=== PATIENT | male | born 1955 | race Caucasian/White ===

== ENCOUNTER → 2017-09-04 16:04 | Outpatient (CLI) | payer OTHER, SELFPAY ==
[2017-09-04 17:49] LABS: Blood Urea Nitrogen 15 mg/dL (7-18); Carbon Dioxide 32 mmol/L (21.0-32.0); Chloride 94 mmol/L (98-107); Creatinine,Serum 0.94 mg/dL (0.70-1.30); Estimated Glomerular Filt Rate 81 ml/min (>60); GFR (African American) 98 ML/MIN (>60); Glucose 103 mg/dL (74-106); Sodium 135 mmol/L (136-145)
== END ==
PROVIDERS: PCP Internal Medicine; Visit Provider Internal Medicine
DX: I10 Essential (primary) hypertension (principal)
CPT/HCPCS: 36415; 80048

== ENCOUNTER → 2017-10-23 10:24 | Outpatient (CLI) | payer OTHER, SELFPAY ==
[2017-10-23 10:52] LABS: Anion Gap 6.2 mEq/L (5-15); Blood Urea Nitrogen 16 mg/dL (7-18); Carbon Dioxide 31 mmol/L (21.0-32.0); Chloride 93 mmol/L (98-107); Creatinine,Serum 0.84 mg/dL (0.70-1.30); Estimated Glomerular Filt Rate 93 ml/min (>60); GFR (African American) 112 ML/MIN (>60); Glucose 146 mg/dL (74-106); Potassium 3.2 mmoL/L (3.5-5.1); Sodium 127 mmol/L (136-145)
== END ==
PROVIDERS: Visit Provider Internal Medicine
DX: R94.2 Abnormal results of pulmonary function studies (principal)
CPT/HCPCS: 36415; 80048

== ENCOUNTER → 2018-01-09 15:14 | Outpatient (CLI) | payer OTHER, SELFPAY ==
--- NOTE | 2018-01-09 15:25 | MR_ITS ---
MR lumbar spine wo con, MR 3-d myelogram/MRCP HISTORY: Low Back spasms when standing. Burning down LT Leg when sitting. Pain and numbness in LT leg and will fall. Symptoms [id number]. ITS.REASON: LOW BACK PAIN ORDERING PHYSICIAN: Jem Narvaez PATIENT AGE: 62 years Comparison: MRI 01-20-17 TECHNIQUE: Standard multiplanar multiecho sequences are performed without contrast. 3-D MIP and myelographic images are also rendered and reviewed FINDINGS: There is normal alignment. The spinal cord ends at the T12-L1 level. There is mild disc desiccation with slight decrease in height of the disc space at T12-L1 and L1-L2. L2-L3 has an unremarkable appearance. L3-L4: Mild degenerative disc disease with mild concentric bulging disc there is slightly eccentric towards the left. The previously noted focal area of increased T2 signal centrally is not apparent on today's exam than the previously noted disc protrusion is no longer apparent. L4-5: Mild degenerative disc disease with bulging disc along with mild facet and ligamentum flavum hypertrophy with mild bilateral foraminal narrowing. L5-S1: There has been interval development of a area of isointense T1 and T2 signal in the left anterior epidural space measuring 9 mm cephalad to caudad, 6 mm AP, and 13 mm transverse. This is consistent with an extruded herniated disc from the L5-S1 disc space extruded superiorly versus a disc fragment. This is causing compression upon the left S1 nerve root and also causing left lateral recess narrowing and may be impinging upon the exiting L5 nerve root as well. There is a 8 mm isointense involving the right kidney laterally nonspecific possibly related to a proteinaceous or hemorrhagic cyst. IMPRESSION: 1. Superior extruded herniated disc versus disc fragment at L5-S1. The extruded disc is left paracentral and compressive on the left S1 nerve root and possibly the exiting L5 nerve root. 2. Mild degenerative disc disease with bulging disc at L3-L4 and L4
== END ==
PROVIDERS: Family Provider Internal Medicine; PCP Internal Medicine; Visit Provider Internal Medicine
DX: M54.5 Low back pain (principal)
CPT/HCPCS: 72148; 76376

== ENCOUNTER 2018-02-16 09:30 | Outpatient (RCR) | payer OTHER, SELFPAY | END 2018-02-16 09:31 | disposition home or self-care (01) | LOC: PT 09:30 | PROVIDERS: Family Provider Internal Medicine; PCP Internal Medicine; Visit Provider Neurological Surgery | DX: M51.36 Other intervertebral disc degeneration, lumbar region (principal) | CPT/HCPCS: 97010; 97014; 97035; 97110; 97163; G0283 ==

== ENCOUNTER → 2018-02-26 08:05 | Outpatient (CLI) | payer OTHER, SELFPAY ==
[2018-02-26 09:33] LABS: Alanine Aminotransferase 38 U/L (12-78); Albumin Level 3.8 gm/dL (3.4-5.0); Albumin/Globulin Ratio 1.2 (1.1-1.8); Alkaline Phosphatase 79 U/L (46-116); Anion Gap 13.3 mEq/L (5-15); Aspartate Amino Transferase 27 U/L (15-37); Bilirubin,Total 0.5 mg/dL (0.2-1.0); Blood Urea Nitrogen 23 mg/dL (7-18); Calcium 9.3 mg/dL (8.5-10.1); Carbon Dioxide 29 mmol/L (21.0-32.0); Chloride 103 mmol/L (98-107); Chol/HDL Ratio 8.1 (1-3.5); Cholesterol 202 mg/dL (140-200); Creatinine,Serum 1.17 mg/dL (0.70-1.30); Estimated Glomerular Filt Rate 63 ml/min (>60); GFR (African American) 76 ML/MIN (>60); Globulin 3.3 gm/dl (1.3-3.2); Glucose 119 mg/dL (74-106); HDL Cholesterol 25 mg/dL (27-67); Potassium 3.3 mmoL/L (3.5-5.1); Prostate Specific Ag, Diagnost 0.53 ng/mL (0.0-4.0); Sodium 142 mmol/L (136-145); Total Protein,Serum 7.1 gm/dL (6.4-8.2)
[2018-02-26 09:39] LABS: Triglycerides 518 mg/dL (30-200)
== END ==
PROVIDERS: Visit Provider Internal Medicine
DX: I10 Essential (primary) hypertension (principal); E78.5 Hyperlipidemia, unspecified; R39.12 Poor urinary stream
CPT/HCPCS: 36415; 80053; 80061; 84153

== ENCOUNTER → 2020-01-30 07:06 | Outpatient (CLI) | payer MEDICAID, SELFPAY ==
[2020-01-30 10:56] LABS: Alanine Aminotransferase 26 U/L (12-78); Albumin Level 4.4 g/dl (3.5-5.0); Albumin/Globulin Ratio 1.3 (1.1-1.8); Alkaline Phosphatase 87 U/L (38-126); Anion Gap 15.9 mEq/L (5-15); Aspartate Amino Transferase 34 U/L (17-59); Bilirubin,Total 0.7 mg/dl (0.2-1.3); Blood Urea Nitrogen 16 mg/dl (9-20); Calcium 9.7 mg/dl (8.4-10.2); Carbon Dioxide 30 mmol/L (22.0-30.0); Chloride 96 mmol/L (98-107); Chol/HDL Ratio 5.1 (1-3.5); Cholesterol 184 mg/dl (140-200); Estimated Glomerular Filt Rate 75 ml/min (>60); GFR (African American) 91 ML/MIN (>60); Globulin 3.4 g/dL (1.3-3.2); Glucose 106 mg/dl (74-100); HDL Cholesterol 36 mg/dl (40-60); Potassium 4.9 mmoL/L (3.5-5.1); Sodium 137 mmol/L (136-145); Total Protein,Serum 7.8 g/dl (6.3-8.2); Triglycerides 270 mg/dl (30-150); VLDL Cholesterol 54 mg/dL (0-40)
[2020-01-30 11:07] LABS: Direct LDL Cholesterol 106.92 mg/dL (100-129)
[2020-01-30 11:27] LABS: Prostate Specific Ag, Diagnost 0.303 ng/ml (0.0-4.0); Thyroid Stimulating Hormone 2.87 uIU/mL (0.465-4.68)
== END ==
PROVIDERS: Visit Provider Internal Medicine
DX: E78.5 Hyperlipidemia, unspecified (principal); N40.1 Benign prostatic hyperplasia with lower urinary tract symptoms; I10 Essential (primary) hypertension; I83.029 Varicose veins of left lower extremity with ulcer of unspecified site; L03.116 Cellulitis of left lower limb; I87.2 Venous insufficiency (chronic) (peripheral)
CPT/HCPCS: 36415; 80053; 80061; 84153; 84443

== ENCOUNTER → 2020-04-06 09:22 | Outpatient (CLI) | payer MEDICAID, SELFPAY ==
[2020-04-06 11:59] LABS: Coronavirus 19 IgG Antibody Negative (Negative); Coronavirus 19 IgM Antibody Negative (Negative)
== END ==
PROVIDERS: Visit Provider Surgery
DX: Z01.818 Encounter for other preprocedural examination (principal); Z12.11 Encounter for screening for malignant neoplasm of colon
CPT/HCPCS: 36415; 86328

== ENCOUNTER 2020-04-07 08:28 | Day surgery (SDC) | payer MEDICAID, SELFPAY ==
[2020-04-07 08:42] VITALS: BP 151/95; PULSE 97; RESP 16; TEMP 36.7; O2SAT 97; BMI 39.8
[2020-04-07 09:01] VITALS: O2SAT 97
--- NOTE | 2020-04-07 09:37 | P.PN_ITS ---
[facility] Anesthesia Checklist - Structural Data Admitted From: Home Planned Operative Procedure/s: colonoscopy Consent for Planned Operative Procedure(s) Verified: Yes - Airway Assessment C-Spine Mobility Assessed: Yes TMJ Mobility Assessed: Yes Dentition: Good Dentition - Neurological Assessment Level of Consciousness: Awake, Alert, Appropriate - Anesthesia Plan Anesthesia Risk discussed: Yes Anesthesia Plan: Verified ASA Class: III Anesthesia Type: MAC [facility] History I have reviewed the patient's past medical history: Yes Medical History: Reports:: Hypertension, MRSA Denies:: Cancer, Diabetes Mellitus Type 1, Diabetes Mellitus Type 2, Internal Pacemaker, Seizures *Have you ever received a pneumonia vaccine?: No *Have you received a flu vaccine this season?: Yes Anesthesia experience/problems:: none Other Surgeries: Yes: Colonoscopy. No: Pacemaker Amputation: No Fractures: No - *Social History Last grade of school completed: Advanced degree Smoking Status: Former smoker Alcohol Intake: current Alcohol Intake Frequency:: a few times a month Substance Use Type: denies use *Occupational Status:: retired Housing: house Household Members: spouse, family, children *Travel in the last 8 weeks: None Family Hx:: No significant family history
--- NOTE | 2020-04-07 10:02 | P.PCN_ITS ---
- Procedure: Date: 04/07/20 Procedure Performed:: Total colonoscopy to terminal ileum with polypectomy x2 by snare and biopsy forceps Indications:: Patient is a 64-year-old male who presents for colonoscopy. He is under the care of Jem Narvaez MD. he is a retired nurse. He has a prior history of diverticulosis. I had performed colonoscopy on him in June 2010 for Hemoccult positive stool and he did have some polyps removed. Five-year follow- up colonoscopy was recommended. He does state that he did a Cologuard in 2019 at the [facility] and colonoscopy was recommended. He is asymptomatic. Performing Provider:: Reed Saldaña MD Referring Provider:: Jem Narvaez MD Sedation:: Propofol Procedure:: Patient was taken to endoscopy procedure room. He was positioned in a lateral decubitus position. Adequate intravenous sedation was achieved with anesthesia titration of propofol. Variable stiffness Olympus colonoscope was inserted via the anus. It was advanced to the cecum with some minor difficulty due to floppiness of the sigmoid colon. Ileocecal valve and appendiceal orifice were clearly identified. Colonoscope was advanced into the terminal ileum which a ppeared grossly normal. Colonoscope was withdrawn through the colon with careful surveillance. He had pandiverticulosis with multiple large mouth diverticuli in the sigmoid colon. There were a couple of descending colon polyps, diminutive, removed with cold cutting snare. Within the rectum there was a hyperplastic appearing polyp removed with biopsy forceps. Colonoscope was withdrawn. Findings:: Small diminutive descending colon polyp x2 removed with cold cutting snare Hyperplastic appearing rectal polyp removed with biopsy forceps Pandiverticulosis with more concentrated [place] diverticuli in the sigmoid colon Recommendations:: Likely repeat colonoscopy 5 years Complications:: None immediately apparent Estimated blood obtained (mL): 3
[2020-04-07 10:05] VITALS: BP 117/78; PULSE 79; RESP 20; TEMP 36.4; O2SAT 92
[2020-04-07 10:15] VITALS: BP 112/80; PULSE 76; RESP 20; TEMP 36.4; O2SAT 92
[2020-04-07 10:25] VITALS: BP 122/77; PULSE 72; RESP 20; TEMP 36.4; O2SAT 98
[2020-04-07 10:40] VITALS: BP 157/87; PULSE 80; RESP 20; TEMP 36.4; O2SAT 98
== END 2020-04-07 10:40 | disposition home or self-care (01) ==
LOC: OUTP 08:30
PROVIDERS: PCP Internal Medicine; Visit Provider Surgery
PROC: 0DJD8ZZ Inspection of Lower Intestinal Tract, Via Natural or Artificial Opening Endoscopic (ICD-10-PCS; CPT 45385; principal; 2020-04-07 09:30)
DX: Z12.11 Encounter for screening for malignant neoplasm of colon (principal); Z87.19 Personal history of other diseases of the digestive system; K63.5 Polyp of colon; K57.30 Diverticulosis of large intestine without perforation or abscess without bleeding; I10 Essential (primary) hypertension; Z86.14 Personal history of Methicillin resistant Staphylococcus aureus infection; Z87.891 Personal history of nicotine dependence; Z88.8 Allergy status to other drugs, medicaments and biological substances; Z79.899 Other long term (current) drug therapy
CPT/HCPCS: 45385; 45380

== ENCOUNTER → 2020-05-19 12:40 | Outpatient (CLI) | payer MEDICAID, SELFPAY ==
--- NOTE | 2020-05-19 12:46 | CT_ITS ---
PROCEDURE: CT LUNG SCREENING CLINICAL INDICATION: H/O NICOTINE DEPENDENCE Former smoker Quit smoking 4 months ago 42 pack year smoking history COMPARISON: No exams were available for comparison TECHNIQUE: The exam was performed on a GE Light Speed [address] scanner using 2.90 mGy CTDI. A low dose helical CT CHEST was performed on a multi-detector scanner. All CT scans at the facility use one or more dose reduction, viz: automated exposure control, ma/kV adjustment per patient size (including targeted exams where dose is matched to indication, i.e. head), or iterative reconstruction technique. The LDCT was performed in a facility that meets the criteria for the screening program. Data regarding this exam was submitted to ACR which is an approved registry. The order for this exam indicates that it came as a result of a lung cancer screening counseling shard decision-making visit that included all the elements required of such a visit including smoking cessation. The radiologist interpreting this exam meets the [facility] criteria for the LDCT lung cancer screening program. The exam is reported using the Lung-RADS classification scale and reported to the ACR registry. NOTE: This study was performed for the specific purposes of lung cancer screening and is not an alternative to diagnostic chest CT. RADIATION DOSE: CTDI vol(CT dose Index-volume) = 2.90mG DLP (Dose Length Product) = 110.98 mGcm FINDINGS: COPD changes. Scarring present in the right upper lobe with punctate hyperdensities in the area of scarring which could be due to calcifications or even small clips. Atelectatic or fibrotic changes are present in the left lower lobe posteriorly and in the lingula. No suspicious pulmonary nodules are evident. OTHER FINDINGS: Coronary artery calcifications. IMPRESSION: Lung-RADS Category 1 Negative Follow-up: Continue annual screening with LDCT in 12 months Dictated by: Jitendra Duran MD 05/29/2020 11:28 Jitendra Duran MD in [place] 05/29/2020 11:28
== END ==
PROVIDERS: PCP Internal Medicine; Visit Provider Internal Medicine
DX: Z87.891 Personal history of nicotine dependence (principal); Z12.2 Encounter for screening for malignant neoplasm of respiratory organs

== ENCOUNTER → 2021-12-07 10:34 | Outpatient (CLI) | payer MEDICARE, SELFPAY ==
[2021-12-07 11:22] LABS: Basophils # 0.1 K/mm3 (0-0.2); Basophils % 1.3 % (0.1-2.0); Eosinophils # 0.2 K/mm3 (0.0-0.4); Eosinophils % 2.3 % (0.1-12.0); Hematocrit 46.2 % (42.0-52.0); Lymphocytes # 1.7 K/mm3 (0.7-4.5); Lymphocytes % 22.1 % (10-50); Mean Corpuscular HGB Conc 32.5 g/dL (31.8-35.4); Mean Corpuscular Hemoglobin 32.6 pg (27.0-31.2); Mean Corpuscular Volume 100.5 fl (80-94); Mean Platelet Volume 7.5 fl (7.4-10.4); Monocytes # 0.5 K/mm3 (0.1-1.0); Monocytes % 6.1 % (1.7-9.3); Neutrophils # 5.1 K/mm3 (1.8-7.8); Neutrophils % 68.2 % (37.0-80.0); Platelet Count 238 K/mm3 (142-424); Red Cell Distribution Width 14.3 % (11.5-17.5); White Blood Count 7.5 K/mm3 (4.8-10.8)
[2021-12-07 12:06] LABS: Alanine Aminotransferase 26 U/L (12-78); Albumin Level 3.8 g/dl (3.5-5.0); Albumin/Globulin Ratio 1.4 (1.1-1.8); Alkaline Phosphatase 71 U/L (38-126); Anion Gap 7.6 mEq/L (5-15); Aspartate Amino Transferase 26 U/L (17-59); Bilirubin,Total 0.7 mg/dl (0.2-1.3); Blood Urea Nitrogen 12 mg/dl (9-20); Calcium 8.3 mg/dl (8.4-10.2); Carbon Dioxide 28 mmol/L (22.0-30.0); Chloride 105 mmol/L (98-107); Chol/HDL Ratio 5.2 (1-3.5); Cholesterol 176 mg/dl (140-200); Estimated Glomerular Filt Rate 135 ml/min (>60); GFR (African American) 163 ML/MIN (>60); Globulin 2.7 g/dL (1.3-3.2); Glucose 113 mg/dl (74-100); HDL Cholesterol 34 mg/dl (40-60); Potassium 4.6 mmoL/L (3.5-5.1); Sodium 136 mmol/L (136-145); Total Protein,Serum 6.5 g/dl (6.3-8.2); Triglycerides 133 mg/dl (30-150); VLDL Cholesterol 27 mg/dL (0-40)
[2021-12-07 12:19] LABS: Direct LDL Cholesterol 115.07 mg/dL (100-129)
[2021-12-07 12:39] LABS: Prostate Specific Ag Screen 0.5 ng/ml (0.0-4.0)
== END ==
PROVIDERS: Visit Provider Internal Medicine
DX: I10 Essential (primary) hypertension (principal); E78.5 Hyperlipidemia, unspecified; J44.1 Chronic obstructive pulmonary disease with (acute) exacerbation; Z12.5 Encounter for screening for malignant neoplasm of prostate
CPT/HCPCS: 36415; 80053; 80061; 85025; G0103

== ENCOUNTER → 2021-12-31 14:51 | Outpatient (CLI) | payer MEDICARE, SELFPAY ==
--- NOTE | 2021-12-31 | ECG_ITS ---
APPROVED REPORT Exam: Resting ECG HR:127 bpm ECG Measurements Heart Rate 127 AXES QRSd 132 QRS 270 QT 336 T 60 QTc 411 Conclusion SVT WITH RAPID VENTRICULAR RESPONSE RIGHT AXIS DEVIATION [QRS AXIS > 100] RIGHT BUNDLE BRANCH BLOCK [120+ ms QRS DURATION, UPRIGHT V1, 40+ ms S IN I/aVL/V4/V5/V6] ABNORMAL ECG Electronically signed by : Jem Narvaez MD 01/03/2022 08:58:29
--- NOTE | 2021-12-31 15:17 | CT_ITS ---
FINAL REPORT CLINICAL HISTORY: smoker 1/2 ppd x 40 years copd COMPARISON: May 19, 2020 FINDINGS: Low-Dose Chest CT CTDI vol (mGy): 2.90 DLP (mGy-cm): 107.07 Axial images were obtained from the lung apex to the mid abdomen by computed tomography. Low-dose protocol was utilized. CHEST: There is no axillary adenopathy. There is no hilar or mediastinal adenopathy. The heart is proper size. There is severe left coronary artery calcification. There is no pericardial or pleural effusion. Limited images of the upper abdomen are unremarkable. Lung window images demonstrate no suspicious infiltrate or nodule. There is mild pulmonary scarring. There are several small calcified granulomas. IMPRESSION: No suspicious infiltrate or nodule is identified. Modifier S: Severe left coronary artery calcification. Lung RADS category 1S. Recommend 12 month follow-up low-dose chest CT. Reviewed, Interpreted and Dictated by Reed King III, MD Transcribed by Gregoria Patino Authenticated by Reed King III, MD on 12/31/2021 04:33:06 PM [facility]
[2021-12-31 17:52] LABS: Vitamin B12 253 pg/mL (239-931)
== END ==
PROVIDERS: PCP Internal Medicine; Visit Provider Internal Medicine
DX: Z87.891 Personal history of nicotine dependence (principal); Z12.2 Encounter for screening for malignant neoplasm of respiratory organs; R00.9 Unspecified abnormalities of heart beat; D75.89 Other specified diseases of blood and blood-forming organs
CPT/HCPCS: 36415; 71271; 82607; 82746; 93005

== ENCOUNTER → 2023-02-10 13:12 | Outpatient (CLI) | payer MEDICARE, SELFPAY ==
[2023-02-10 14:51] LABS: Basophils % 0.4 % (0.1-2.0); Eosinophils # 0.4 K/mm3 (0.0-0.4); Eosinophils % 4.2 % (0.1-12.0); Hematocrit 48.3 % (42.0-52.0); Hemoglobin 15.4 g/dL (14.1-18.0); Lymphocytes % 19.4 % (10-50); Mean Corpuscular HGB Conc 31.9 g/dL (31.8-35.4); Mean Corpuscular Hemoglobin 30.9 pg (27.0-31.2); Mean Corpuscular Volume 96.8 fl (80-94); Mean Platelet Volume 10.4 fl (7.4-10.4); Monocytes # 0.6 K/mm3 (0.1-1.0); Neutrophils % 69.9 % (37.0-80.0); Platelet Count 298 K/mm3 (142-424); Red Blood Count 4.99 M/mm3 (4.60-6.20); Red Cell Distribution Width 13.5 % (11.5-17.5)
[2023-02-10 15:22] LABS: Alanine Aminotransferase 26 U/L (12-78); Albumin Level 4.3 g/dl (3.5-5.0); Albumin/Globulin Ratio 1.6 (1.1-1.8); Alkaline Phosphatase 108 U/L (38-126); Anion Gap 18.7 mEq/L (5-15); Aspartate Amino Transferase 29 U/L (17-59); Bilirubin,Total 0.7 mg/dl (0.2-1.3); Blood Urea Nitrogen 14 mg/dl (9-20); Calcium 8.9 mg/dl (8.4-10.2); Carbon Dioxide 28 mmol/L (22.0-30.0); Chloride 98 mmol/L (98-107); Chol/HDL Ratio 6.5 (1-3.5); Cholesterol 215 mg/dl (140-200); Estimated Glomerular Filt Rate 96 ml/min (>60); GFR (African American) 117 ML/MIN (>60); Globulin 2.7 g/dL (1.3-3.2); Glucose 148 mg/dl (74-100); HDL Cholesterol 33 mg/dl (40-60); Potassium 4.7 mmoL/L (3.5-5.1); Sodium 140 mmol/L (136-145); Triglycerides 308 mg/dl (30-150); VLDL Cholesterol 62 mg/dL (0-40)
[2023-02-10 15:33] LABS: Direct LDL Cholesterol 121.35 mg/dL (100-129)
[2023-02-10 15:52] LABS: Prostate Specific Ag Screen 0.6 ng/ml (0.0-4.0)
== END ==
PROVIDERS: PCP Internal Medicine; Visit Provider Internal Medicine
DX: I10 Essential (primary) hypertension (principal); E78.5 Hyperlipidemia, unspecified; I87.2 Venous insufficiency (chronic) (peripheral); K11.9 Disease of salivary gland, unspecified; J44.9 Chronic obstructive pulmonary disease, unspecified; R60.9 Edema, unspecified; Z12.5 Encounter for screening for malignant neoplasm of prostate
CPT/HCPCS: 80053; 80061; 85025; G0103

== ENCOUNTER → 2023-03-27 14:15 | Outpatient (CLI) | payer MEDICARE, SELFPAY ==
--- NOTE | 2023-03-27 14:22 | CT_ITS ---
FINAL REPORT TECHNIQUE: Axial images were obtained from the lung apex to the mid abdomen by computed tomography. This study was performed with techniques to keep radiation doses as low as reasonably achievable (ALARA). Individualized dose reduction techniques using automated exposure control or adjustment of mA and/or kV according to the patient's size were employed. CLINICAL HISTORY: H/O TOBACCO USE,LUNG CANCER SCREENING smokes 1/2 pk per day x 40 yrs COMPARISON: 12/31/2021 FINDINGS: CHEST CT LOW DOSE CTDI vol (mGy): 2.90 DLP (mGy-cm): 119.59 There is severe coronary artery calcification. There is no axillary adenopathy. There is no hilar or mediastinal adenopathy. The heart is normal in size. There is no pericardial or pleural effusion. There is mild scarring which is stable. Lung window images demonstrate no suspicious infiltrate or nodule. Limited images of the upper abdomen are unremarkable. IMPRESSION: Severe coronary artery calcification. Lung RADS category 1S. Recommend 12 month follow-up low-dose chest CT. Reviewed, Interpreted and Dictated by Reed King III, MD Transcribed by Nicolasa Pro Authenticated and . [facility]
== END ==
PROVIDERS: PCP Internal Medicine; Visit Provider Internal Medicine
DX: Z87.891 Personal history of nicotine dependence (principal); Z12.2 Encounter for screening for malignant neoplasm of respiratory organs
CPT/HCPCS: 71271

== ENCOUNTER → 2023-08-09 12:44 | Outpatient (CLI) | payer MEDICARE, SELFPAY ==
[2023-08-09 13:33] LABS: Hemoglobin A1C 7.2 % (4.0-6.0)
[2023-08-09 13:54] LABS: Chloride 99 mmol/L (98-107); Potassium 4.4 mmoL/L (3.5-5.1); Sodium 138 mmol/L (136-145)
[2023-08-09 13:57] LABS: Anion Gap 14.4 mEq/L (5-15); Blood Urea Nitrogen 11 mg/dl (9-20); Calcium 8.9 mg/dl (8.4-10.2); Carbon Dioxide 29 mmol/L (22.0-30.0); Estimated Glomerular Filt Rate 96 ml/min (>60); GFR (African American) 117 ML/MIN (>60); Glucose 86 mg/dl (74-100)
== END ==
PROVIDERS: PCP Internal Medicine; Visit Provider Internal Medicine
DX: R73.9 Hyperglycemia, unspecified (principal); E78.5 Hyperlipidemia, unspecified; I10 Essential (primary) hypertension; I87.2 Venous insufficiency (chronic) (peripheral); I48.3 Typical atrial flutter; J44.9 Chronic obstructive pulmonary disease, unspecified; F17.209 Nicotine dependence, unspecified, with unspecified nicotine-induced disorders
CPT/HCPCS: 80048; 83036

== ENCOUNTER 2023-12-31 10:36 | Emergency (ER) | payer MEDICARE, SELFPAY ==
[2023-12-31 11:05] VITALS: BP 127/69; PULSE 61; RESP 19; TEMP 36.7; O2SAT 95; BMI 41.7
--- NOTE | 2023-12-31 11:31 | ED_ITS ---
Discharge Plan Disposition Patient Disposition: Home, Self-Care Condition: Good Prescriptions Prescriptions: New amoxicillin-pot clavulanate 875-125 mg Tablet 1 tab PO Q12H 7 Days Qty: 14 0RF No Action losartan 25 mg tablet 25 mg PO DAILY spironolactone 25 mg tablet 25 mg PO DAILY Patient Comments: TAKE ONE TABLET BY MOUTH EVERY MORNING FOR BLOOD PRESSURE AND EDEMA diltiazem HCl [Cartia XT] 120 mg capsule,extended release 24hr 120 mg PO DAILY Patient Comments: TAKE ONE CAPSULE BY MOUTH EVERY DAY ibuprofen 600 mg tablet 600 mg PO DAILY Patient Comments: TAKE ONE TABLET BY MOUTH EVERY 6 HOURS NEEDED FOR PAIN Referrals Follow up/Referrals: Jem Narvaez MD [Primary Care Provider] - See instructions Activity Restrictions/Add. Instructions Additional Instructions/Restrictions: Take ibuprofen as prescribed Take antibiotitcs as prescribed FOllow up with your Dentist Use dental balls as you was instructed in the [facility] today Clinical Impressions Clinical Impression: Pain, dental Instructions Patient Instructions: Amoxicillin and Clavulanic Acid, DI for Dental Pain Discharge ED Provider: Regina Lynn [facility] [place] HPI General Stated complaint: pain on right side neck and jaw Mode of Arrival: Ambulatory Source of Information: Patient Limitations: No Limitations Time Seen by Provider: 12/31/23 11:31 Description of Symptoms (Recalled from Triage Doc. by RN): PATIENT C/O PAIN TO RIGHT BOTTOM TOOTH AND RIGHT JAW/NECK PAIN SINCE 12/22/23 HEENT Symptoms (Recalled from RN notes): Yes Resp Symptoms (Recalled from RN notes): No Skin Symptoms (Recalled from RN notes): No MS Symptoms (Recalled from RN notes): No Functional Status (Recalled from RN notes): WNL History of Present Illness Provider Complaint: Patient states that he has been having problems with dental pain for several weeks and has been to the dentist multiple times and they have filled and shaped tooth several times States today he feels swollen in his right jaw area and took his last pain medication States he still has some ibuprofen but thats all and so he came in to see if he could get some more until he sees the dentist Related Data Home Medications Medication Instructions Recorded Confirmed losartan 25 mg tablet 25 mg PO DAILY High blood pressure 03/09/20 12/31/23 diltiazem HCl 120 mg 120 mg PO DAILY 12/31/23 12/31/23 capsule,extended release 24 hr (Cartia XT) ibuprofen 600 mg tablet 600 mg PO DAILY 12/31/23 12/31/23 spironolactone 25 mg tablet 25 mg PO DAILY 12/31/23 12/31/23 Previous Rx's Medication Instructions Recorded amoxicillin 875 mg-potassium 1 tab PO Q12H 7 days #14 tabs 12/31/23 clavulanate 125 mg tablet Allergies Allergy/AdvReac Type Severity Reaction Status Date / Time ZAIN Inhibitors AdvReac Mild Cough Verified 05/01/20 09:29 Worker's Comp Is this a Worker's Comp case?: No [facility] Disclaimer: The information contained in this section may have been updated after the patient was seen, as this information can be updated by other users. Medical History (Updated 12/31/23 @ 11:46 by Regina Lynn APRN) Hypertension Surgical History (Updated 12/31/23 @ 11:29 by Celia Burton RN) History of hernia repair History of tonsillectomy Social History Smoking Status: Former smoker alcohol intake: current alcohol intake frequency: a few times a month substance use type: denies use current occupational status: retired Travel in the last 8 weeks: None household members: spouse, family and children housing: house current occupational exposures/hazards: No caffeine: Yes ROS Obtained: Yes All systems reviewed & no additional complaints except as documented and Yes Systems reviewed as appropriate & no additional complaints except as documented Constitutional Constitutional: Reports system reviewed and no additional complaints, except as documented and Reports as per HPI ENT Ears, Nose, Mouth, and Throat: Reports system reviewed and no additional complaints, except as documented, Reports as per HPI, Reports dental pain and Reports other (mild swelling and tenderness in right jaw area) Cardiovascular Cardiovascular: Reports system reviewed and no additional complaints, except as documented and Reports as per HPI Respiratory Respiratory: Reports system reviewed and no additional complaints, except as documented and Reports as per HPI Gastrointestinal Gastrointestingal: Reports system reviewed and no additional complaints, except as documented and as per HPI Physical Exam General General appearance: alert and in no apparent distress Head Head exam: other Expanded Head Exam Head image: 2 1. mild swelling in parotid gland area that is tender to the touch ENT ENT exam: Present mucous membranes moist Expanded ENT Exam Teeth exam: Present gingival swelling (mild) and other (multiple filled teeth noted ) Respiratory Respiratory exam: Present normal lung sounds bilaterally; Absent respiratory distress or wheezes Cardiovascular Cardiovascular exam: Present regular rate, normal rhythm and normal heart sounds Neurological Exam Neurological exam: Present alert, oriented X3 and normal gait Medical Decision Making Jef Inquiry Pt receiving controlled substance: No Jef was queried for this patient: No Vital Signs: 12/31/23 11:05 Temperature 98.1 F Temperature Source Oral Pulse Rate [Left Brachial] 61 Respiratory Rate 19 Blood Pressure [Left Arm] 127/69 Blood Pressure Mean [Left Arm] 88 Blood Pressure Source [Left Arm] Automatic Cuff Blood Pressure Position [Left Arm] Sitting 02 Sat by Pulse Oximetry 95 Oxygen Delivery Method Room Air
[2023-12-31 11:49] VITALS: BP 127/69; PULSE 61; RESP 19; TEMP 36.7; O2SAT 95
== END 2023-12-31 11:53 | disposition home or self-care (01) ==
PROVIDERS: Emergency Provider Nurse Practitioner; PCP Internal Medicine
DX: R22.0 Localized swelling, mass and lump, head (principal); K08.89 Other specified disorders of teeth and supporting structures
CPT/HCPCS: 99204; 99212; G0463

== ENCOUNTER 2024-01-07 13:18 | Emergency (ER) | payer MEDICARE, SELFPAY ==
[2024-01-07 13:20] VITALS: BP 154/93; PULSE 62; RESP 18; O2SAT 99; BMI 42.3
[2024-01-07 14:25] VITALS: BP 151/88; PULSE 84; RESP 22; O2SAT 97
--- NOTE | 2024-01-07 14:26 | CT_ITS ---
PROCEDURE INFORMATION: Exam: CT Neck With Contrast Exam date and time: 01/07/2024 3:35 PM Age: 68 years old Clinical indication: Neck pain and other: Jaw; Additional info: Jaw pain TECHNIQUE: Imaging protocol: Computed tomography of the neck with contrast. Radiation optimization: All CT scans at this facility use at least one of these dose optimization techniques: automated exposure control; mA and/or kV adjustment per patient size (includes targeted exams where dose is matched to clinical indication); or iterative reconstruction. Contrast material: ISOVUE; Contrast volume: 75 ml; Contrast route: IV; COMPARISON: CT LUNG SCREENING 03/27/2023 2:25 PM FINDINGS: Brain: No abnormalities noted in the partially visualized lower brain. Dental: At the site of a missing right mandibular molar tooth, there is soft tissue density and gas, concerning for an abscess. Pharynx: Unremarkable. No significant tonsillar enlargement. Larynx: Unremarkable. Epiglottis is normal. Prevertebral and retropharyngeal spaces: Unremarkable. Salivary glands: There are 2 hyperenhancing masses in the left parotid, abutting the mandible, which measure 1.7 x 1.5 x 1.5 cm and 1.8 x 1.9 x 2.1 cm. Thyroid: Normal. No enlarged or calcified nodules. Lymph nodes: Unremarkable. No lymphadenopathy. Trachea: Visualized trachea is unremarkable. Lungs: Unremarkable as visualized. Bones/joints: Severe, multilevel degenerative disc disease of the cervical spine, with vertebral body fusion noted at C5-C6 levels. Soft tissues: Unremarkable. No significant soft tissue swelling. Other findings: Punctate right and mild left calcifications along the proximal ICAs. There is a 2.2 x 2.2 x 0.8 cm right, hyperenhancing mass abutting the mandible. IMPRESSION: 1. There are 2 hyperenhancing masses in the left parotid, abutting the mandible, which measure 1.7 x 1.5 x 1.5 cm and 1.8 x 1.9 x 2.1 cm. 2. There is a 2.2 x 2.2 x 0.8 cm right, hyperenhancing mass abutting the mandible. 3. At the site of a missing right mandibular molar tooth, there is soft tissue density and gas, concerning for an abscess.
--- NOTE | 2024-01-07 14:26 | ED_ITS ---
<Statement entered by Roxann Sharma MD - 01/07/24 15:14> I was consulted by the LINDA, and we discussed the complexity of the problems being addressed. I approved the treatment and management plan for this patient's care in the emergency department, thus performing a substantive portion of the medical decision making. Roxann Sharma MD, HEIKE, FACEP Discharge Plan Disposition Patient Disposition: Home, Self-Care Condition: Good Prescriptions Prescriptions: No Action losartan 25 mg tablet 25 mg PO DAILY spironolactone 25 mg tablet 25 mg PO DAILY Patient Comments: TAKE ONE TABLET BY MOUTH EVERY MORNING FOR BLOOD PRESSURE AND EDEMA diltiazem HCl [Cartia XT] 120 mg capsule,extended release 24hr 120 mg PO DAILY Patient Comments: TAKE ONE CAPSULE BY MOUTH EVERY DAY ibuprofen 600 mg tablet 600 mg PO DAILY Patient Comments: TAKE ONE TABLET BY MOUTH EVERY 6 HOURS NEEDED FOR PAIN amoxicillin-pot clavulanate 875-125 mg Tablet 1 tab PO Q12H 7 Days Qty: 14 0RF Referrals Follow up/Referrals: Issa Billings MD [Physician] - See instructions Jem Narvaez MD [Primary Care Provider] - See instructions Activity Restrictions/Add. Instructions Additional Instructions/Restrictions: I have referred you to ear nose and throat for evaluation of the mass in your parotid glands. Please call in the morning to make an appointment. Return to the ER for any worsening signs or symptoms including inability to tolerate oral intake.. Clinical Impressions Clinical Impression: Mass of both parotid glands Discharge ED Provider: Roxann Sharma General Adult HPI General Chief complaint: Ear Stated complaint: right side jaw pain, fuzzy headedness Time Seen by Provider: 01/07/24 14:08 Mode of Arrival: Ambulatory Source of Information: Patient Limitations: No Limitations Description of Symptoms (Recalled from ER Triage Doc. by RN): c/o knots behind bilateral ear, jaw pain and increased feeling of his pulse. States he can see his pulse in the corner of his eyes and feeling foggy History of Present Illness HPI narrative: Patient presents for evaluation of primarily right-sided jaw pain. Patient gives a 3-week history of his right mandible hurting. He has been evaluated by a dentist 5 times in that time. He is actually had a tooth extraction that was ultimately found to be a normal tooth however none of the interventions that have been done so far have relieved his pain. He reports he is finished a course of Augmentin with no change as well. He denies chest pain fever chills hemoptysis hematochezia melena nausea vomiting diarrhea. Patient reports no loss of hearing no abnormal bite. Related Data Home Medications Medication Instructions Recorded Confirmed losartan 25 mg tablet 25 mg PO DAILY High blood pressure 03/09/20 12/31/23 diltiazem HCl 120 mg 120 mg PO DAILY 12/31/23 12/31/23 capsule,extended release 24 hr (Cartia XT) ibuprofen 600 mg tablet 600 mg PO DAILY 12/31/23 12/31/23 spironolactone 25 mg tablet 25 mg PO DAILY 12/31/23 12/31/23 Previous Rx's Medication Instructions Recorded amoxicillin 875 mg-potassium 1 tab PO Q12H 7 days #14 tabs 12/31/23 clavulanate 125 mg tablet Allergies Allergy/AdvReac Type Severity Reaction Status Date / Time ZAIN Inhibitors AdvReac Mild Cough Verified 05/01/20 09:29 [facility] Disclaimer: The information contained in this section may have been updated after the patient was seen, as this information can be updated by other users. Medical History (Updated 01/07/24 @ 16:22 by RUBY Jean) Hypertension Surgical History (Updated 12/31/23 @ 11:29 by Celia Burton RN) History of hernia repair History of tonsillectomy Social History Smoking Status: Current every day smoker alcohol intake: current alcohol intake frequency: a few times a month substance use type: denies use current occupational status: retired Travel in the last 8 weeks: None household members: spouse, family and children housing: house current occupational exposures/hazards: No caffeine: Yes ROS Obtained: Yes Systems reviewed as appropriate & no additional complaints except as documented Physical Exam General General appearance: alert and in no apparent distress Head Head exam: atraumatic and normal inspection ENT ENT exam: Present normal exam, normal oropharynx, mucous membranes moist and TM's normal bilaterally Neck Neck exam: Present normal inspection, full ROM, trachea midline and tenderness (Patient has tenderness to palpation over the left and right parotid glands, right greater than left. The parotid glands themselves are hard firm and not significantly enlarged. No appreciable lymphadenopathy noted.); Absent lymphadenopathy Respiratory Respiratory exam: Present normal lung sounds bilaterally; Absent respiratory distress Cardiovascular Cardiovascular exam: Present regular rate and normal rhythm Back Exam Back exam: Present normal inspection and full ROM; Absent tenderness Neurological Exam Neurological exam: Present alert and oriented X3 Medical Decision Making Medical Records Medical records reviewed: Yes I reviewed the patient's medical records. Jef Inquiry Pt receiving controlled substance: No Vital Signs: 01/07/24 13:20 01/07/24 14:25 01/07/24 16:20 Pulse Rate 84 55 L Pulse Rate [Left Radial] 62 Respiratory Rate 18 22 24 Blood Pressure 151/88 H 131/83 Blood Pressure [Right Arm] 154/93 H Blood Pressure Mean [Right Arm] 113 Blood Pressure Source Automatic Cuff Blood Pressure Source [Right Arm] Automatic Cuff Blood Pressure Position Sitting Blood Pressure Position [Right Arm] Sitting 02 Sat by Pulse Oximetry 99 97 95 Oxygen Delivery Method Room Air Room Air 01/07/24 16:30 Pulse Rate 59 L Pulse Rate [Left Radial] Respiratory Rate 20 Blood Pressure 130/72 Blood Pressure [Right Arm] Blood Pressure Mean [Right Arm] Blood Pressure Source Blood Pressure Source [Right Arm] Blood Pressure Position Blood Pressure Position [Right Arm] 02 Sat by Pulse Oximetry 95 Oxygen Delivery Method Lab Data Lab results reviewed: Yes I reviewed the patient's lab results. Lab Results 01/07/24 13:30: WBC 7.9, RBC 4.86, Hgb 16.1, Hct 47.5, MCV 97.7 H, MCH 33.1 H, MCHC 33.9, RDW 14.4, Plt Count 305, MPV 8.7, Neut % (Auto) 63.1, Lymph % (Auto) 27.2, Cache % (Auto) 6.5, Eos % (Auto) 2.5, Baso % (Auto) 0.8, Neut # (Auto) 5.0, Lymph # (Auto) 2.1, Cache # (Auto) 0.5, Eos # (Auto) 0.2, Baso # (Auto) 0.1, Sodium 136, Potassium 4.4, Chloride 102, Carbon Dioxide 27, Anion Gap 11.4, BUN 11, Creatinine 0.80, Estimated Creat Clear 82, Estimated GFR 96, Est GFR ( Amer) 116, Glucose 100, Calcium 9.5, Total Bilirubin 0.6, AST 32, ALT 31, Alkaline Phosphatase 84, Total Protein 7.2, Albumin 4.1, Globulin 3.1, Albumin/Globulin Ratio 1.3 01/07/24 13:30 01/07/24 13:30 Orders (Tests/Meds): ED MEDICATIONS Discontinued Medications Generic Name Dose Route Start Last Admin Trade Name Shirley PRN Reason Stop Dose Admin Acetaminophen 1,000 mg 01/07/24 14:26 01/07/24 14:44 Acetaminophen 1,000mg/100ml Vial IV 01/07/24 14:27 1,000 mg ONCE ONE Administration Iopamidol 75 ml 01/07/24 15:42 01/07/24 15:43 Iopamidol-370 (76%);100ml Bottle IV 01/07/24 15:43 75 ml ONCE ONE Administration Ketorolac Tromethamine 15 mg 01/07/24 14:26 01/07/24 14:46 Ketorolac 30mg/Ml Vial IV 01/07/24 14:27 15 mg ONCE ONE Administration Sodium Chloride 10 ml 01/07/24 15:42 01/07/24 15:43 Sodium Chloride 0.9% 10ml Syr (Rad Only) IV 01/07/24 15:43 10 ml ONCE ONE Administration ORDERS Category Date Time Status CT soft tissue neck w con Stat Cat Scan 01/07/24 14:26 Completed CBC w/Auto Diff [Complete Blood Count Auto Diff] Stat Lab 01/07/24 13:30 Completed CMP [Comprehensive Metabolic Panel] Stat Lab 01/07/24 13:30 Completed Medical Decision Narrative: In summary patient is a 68-year-old male who presents to the emergency department for evaluation of right jaw pain. Patient is hemodynamically stable upon arrival, afebrile. Physical exam is remarkable for bilateral parotid gland tenderness however right is greater than left. Patient also has a hard firm right parotid gland with no fluctuance noted. Oropharynx shows no abnormalities and no appreciable abnormalities can be palpated inside the oral cavity. No lymphadenopathy appreciated in the anterior cervical chains.. Differential diagnosis includes parotitis, malignant neoplasm, parotid duct stone deep space infection etc. Initial workup will be conducted with hematologic labs CT scan soft tissues of the neck. Initial interventions include Toradol and Tylenol. Initial workup reviewed by me shows that his hematologic labs are nonactionable and my informal review of his CT scan shows enlarged bilateral parotid glands both have masses right greater than left but there are 2 on the left. Differential includes warthin tumor or possible mets from distant site. Upon repeat evaluation I had interactive discussion regarding his workup and findings. He reports some improvement with the anti-inflammatories. Given this appropriate for discharge for follow-up with his PCP for cancer survey and patient plans to follow-up this week, and referral to ear nose and throat surgery for further workup and biopsy of masses. Patient has follow-up with dentistry on Monday. Regarding radiographic findings of possible abscess patient actually has had tooth extraction and then surgical packing by the dentistry last week for possible dry socket. Critical Care Critical Care Time Critical Care Time: No
[2024-01-07 14:39] LABS: Basophils # 0.1 K/mm3 (0-0.2); Basophils % 0.8 % (0.1-2.0); Eosinophils # 0.2 K/mm3 (0.0-0.4); Eosinophils % 2.5 % (0.1-12.0); Hematocrit 47.5 % (42.0-52.0); Hemoglobin 16.1 g/dL (14.1-18.0); Lymphocytes # 2.1 K/mm3 (0.7-4.5); Lymphocytes % 27.2 % (10-50); Mean Corpuscular HGB Conc 33.9 g/dL (31.8-35.4); Mean Corpuscular Hemoglobin 33.1 pg (27.0-31.2); Mean Corpuscular Volume 97.7 fl (80-94); Mean Platelet Volume 8.7 fl (7.4-10.4); Monocytes # 0.5 K/mm3 (0.1-1.0); Monocytes % 6.5 % (1.7-9.3); Neutrophils % 63.1 % (37.0-80.0); Platelet Count 305 K/mm3 (142-424); Red Blood Count 4.86 M/mm3 (4.60-6.20); Red Cell Distribution Width 14.4 % (11.5-17.5); White Blood Count 7.9 K/mm3 (4.8-10.8)
[2024-01-07 14:41] LABS: Chloride 102 mmol/L (98-107); Potassium 4.4 mmoL/L (3.5-5.1); Sodium 136 mmol/L (136-145)
[2024-01-07 14:43] LABS: Blood Urea Nitrogen 11 mg/dl (9-20); Creatinine Clearance Estimated 82 mL/min (50-200); Estimated Glomerular Filt Rate 96 ml/min (>60); GFR (African American) 116 ML/MIN (>60)
[2024-01-07 14:44] LABS: Alanine Aminotransferase 31 U/L (12-78); Albumin Level 4.1 g/dl (3.5-5.0); Albumin/Globulin Ratio 1.3 (1.1-1.8); Alkaline Phosphatase 84 U/L (38-126); Anion Gap 11.4 mEq/L (5-15); Aspartate Amino Transferase 32 U/L (17-59); Bilirubin,Total 0.6 mg/dl (0.2-1.3); Calcium 9.5 mg/dl (8.4-10.2); Carbon Dioxide 27 mmol/L (22.0-30.0); Globulin 3.1 g/dL (1.3-3.2); Glucose 100 mg/dl (74-100); Total Protein,Serum 7.2 g/dl (6.3-8.2)
[2024-01-07] MEDS: ACETAMINOPHEN 1,000MG/100ML VIAL 1000 MG IV (14:44)
[2024-01-07] MEDS: KETOROLAC 30MG/ML VIAL 15 MG IV (14:46)
--- NOTE | 2024-01-07 15:30 | PC.NURSE ---
pt ambulating to CT at this time
[2024-01-07] MEDS: IOPAMIDOL-370 (76%);100ML BOTTLE 75 ML IV (15:43)
[2024-01-07] MEDS: SODIUM CHLORIDE 0.9% 10ML SYR (RAD ONLY) 10 ML IV (15:43)
[2024-01-07 16:20] VITALS: BP 131/83; PULSE 55; RESP 24; O2SAT 95
[2024-01-07 16:30] VITALS: BP 130/72; PULSE 59; RESP 20; O2SAT 95
[2024-01-07 16:56] VITALS: BP 130/72; PULSE 75; RESP 20; TEMP 36.7; O2SAT 98
== END 2024-01-07 16:57 | disposition home or self-care (01) ==
PROVIDERS: Physician Assistant; Emergency Provider Student in an Organized Health Care Education/Training Program; PCP Internal Medicine
DX: K11.8 Other diseases of salivary glands (principal); R68.84 Jaw pain; I10 Essential (primary) hypertension; F17.210 Nicotine dependence, cigarettes, uncomplicated
CPT/HCPCS: 70491; 80053; 85025; 96374; 96375; 99284; J0131; Q9967

== ENCOUNTER 2024-01-19 07:33 | Outpatient (CLI) | payer MEDICARE, SELFPAY ==
--- NOTE | 2024-01-19 07:34 | US_ITS ---
FINAL REPORT CLINICAL HISTORY: rt and lt neck fna bx -- tony powers FINDINGS: Ultrasound guided bilateral parotid biopsy. HISTORY: Thyroid mass. Attending radiologist: Dr. Hernandez. Physician Bench Press Operator: Tony Gonzalez PA-C PROCEDURE: After informed consent was obtained and a time-out was performed, the patient was prepped and draped in usual sterile fashion over the neck. Utilizing local anesthesia and sterile technique with a 25-gauge needle, access to both the right and left parotid glands was obtained. A total of 4 were made under direct ultrasound guidance into both the right and left parotid gland nodules. The patient received no conscious sedation. The patient tolerated procedure well and left the department in good condition. IMPRESSION: Status post ultrasound guided biopsy of right and left parotid nodules without immediate complication. Films reviewed , interpreted and dictated by Dr. Hernandez. Transcribed by Tony Gonzalez PA-C. Reviewed, Interpreted and Dictated by Ru Hernandez MD Transcribed by RUBY Fried Authenticated and [facility]
== END 2024-01-19 23:59 | disposition home or self-care (01) ==
LOC: RAD 07:34
PROVIDERS: PCP Internal Medicine; Visit Provider Otolaryngology
DX: K11.8 Other diseases of salivary glands (principal)
CPT/HCPCS: 10005; 88173; 88184; 88185; 88305

== ENCOUNTER 2024-05-14 10:54 | Outpatient (CLI) | payer MEDICARE, SELFPAY ==
[2024-05-14 11:34] LABS: Basophils # 0.1 K/mm3 (0-0.2); Basophils % 0.7 % (0.1-2.0); Eosinophils # 0.5 K/mm3 (0.0-0.4); Eosinophils % 3.8 % (0.1-12.0); Hematocrit 49.3 % (42.0-52.0); Hemoglobin 15.8 g/dL (14.1-18.0); Lymphocytes # 2.4 K/mm3 (0.7-4.5); Mean Corpuscular HGB Conc 32.1 g/dL (31.8-35.4); Mean Corpuscular Hemoglobin 33.4 pg (27.0-31.2); Mean Platelet Volume 6.6 fl (7.4-10.4); Monocytes # 0.8 K/mm3 (0.1-1.0); Monocytes % 6.1 % (1.7-9.3); Neutrophils # 9.6 K/mm3 (1.8-7.8); Neutrophils % 71.4 % (37.0-80.0); Platelet Count 357 K/mm3 (142-424); Red Blood Count 4.74 M/mm3 (4.60-6.20); Red Cell Distribution Width 13.7 % (11.5-17.5); White Blood Count 13.5 K/mm3 (4.8-10.8)
[2024-05-14 11:35] LABS: Albumin Level 4.2 g/dl (3.5-5.0); Chloride 102 mmol/L (98-107); Potassium 5.1 mmoL/L (3.5-5.1); Sodium 137 mmol/L (136-145)
[2024-05-14 11:37] LABS: Alanine Aminotransferase 26 U/L (12-78); Anion Gap 9.1 mEq/L (5-15); Aspartate Amino Transferase 23 U/L (17-59); Blood Urea Nitrogen 16 mg/dl (9-20); Carbon Dioxide 31 mmol/L (22.0-30.0); Estimated Glomerular Filt Rate 96 ml/min (>60); GFR (African American) 116 ML/MIN (>60)
[2024-05-14 11:38] LABS: Albumin/Globulin Ratio 1.4 (1.1-1.8); Alkaline Phosphatase 112 U/L (38-126); Bilirubin,Total 0.6 mg/dl (0.2-1.3); Calcium 9.6 mg/dl (8.4-10.2); Chol/HDL Ratio 5.8 (1-3.5); Cholesterol 204 mg/dl (140-200); Globulin 3.1 g/dL (1.3-3.2); Glucose 157 mg/dl (74-100); HDL Cholesterol 35 mg/dl (40-60); Total Protein,Serum 7.3 g/dl (6.3-8.2); Triglycerides 152 mg/dl (30-150); VLDL Cholesterol 30 mg/dL (0-40)
[2024-05-14 11:49] LABS: Direct LDL Cholesterol 132.55 mg/dL (100-129)
[2024-05-14 14:28] LABS: Prostate Specific Ag Screen 0.4 ng/ml (0.0-4.0)
[2024-05-15 10:21] LABS: Vitamin B12 539 pg/mL (239-931)
== END 2024-05-14 23:59 | disposition home or self-care (01) ==
LOC: LAB 10:57
PROVIDERS: PCP Internal Medicine; Visit Provider Internal Medicine
DX: E11.9 Type 2 diabetes mellitus without complications (principal); I10 Essential (primary) hypertension; E78.5 Hyperlipidemia, unspecified; Z12.5 Encounter for screening for malignant neoplasm of prostate; D75.89 Other specified diseases of blood and blood-forming organs
CPT/HCPCS: 36415; 80053; 80061; 82607; 83036; 85025; G0103

== ENCOUNTER 2024-06-15 15:04 | Emergency (ER) | payer MEDICARE, SELFPAY ==
[2024-06-15 15:05] VITALS: BP 133/63; PULSE 53; RESP 13; TEMP 37.1; O2SAT 97; BMI 42.3
--- NOTE | 2024-06-15 15:26 | ECG_ITS ---
APPROVED REPORT Exam: Resting ECG HR:50 bpm ECG Measurements Heart Rate 50 AXES QRSd 128 QRS -53 QT 394 T 78 QTc 367 Conclusion ATRIAL FIBRILLATION WITH SLOW VENTRICULAR RESPONSE RIGHT BUNDLE BRANCH BLOCK [120+ ms QRS DURATION, UPRIGHT V1, 40+ ms S IN I/aVL/V4/V5/V6] LEFT ANTERIOR FASCICULAR BLOCK [QRS AXIS <= -45, QR IN I, RS IN II] POSSIBLE ANTERIOR MYOCARDIAL INFARCTION , PROBABLY OLD [30 ms Q WAVE IN V3/V4, OR R < 0.2 mV IN V4] Electronically signed by : JENNI RIOS, 06/15/2024 18:42:19
--- NOTE | 2024-06-15 15:26 | XR_ITS ---
PROCEDURE INFORMATION: Exam: XR Chest Exam date and time: 06/15/2024 3:30 PM Age: 68 years old Clinical indication: Cough; Additional info: Cough 1mo, nonprod, L inspirational pain TECHNIQUE: Imaging protocol: Radiologic exam of the chest. Views: 1 view. COMPARISON: CT LUNG SCREENING 03/27/2023 2:25 PM FINDINGS: Lungs: Unremarkable. No consolidation. Pleural spaces: Unremarkable. No pleural effusion. No pneumothorax. Heart/Mediastinum: Unremarkable. No cardiomegaly. Bones/joints: Unremarkable. IMPRESSION: No acute findings.
--- NOTE | 2024-06-15 15:30 | ED_ITS ---
Discharge Plan Disposition Patient Disposition: Home, Self-Care Condition: Good Prescriptions Prescriptions: New doxycycline hyclate 100 mg capsule 100 mg PO BID 7 Days Qty: 14 0RF methocarbamol 750 mg tablet 750 mg PO Q8H PRN (Reason: muscle pain) Qty: 20 0RF No Action Eliquis 5 mg tablet 5 mg PO BID diltiazem HCl [Cartia XT] 120 mg capsule,extended release 24hr See Rx Instructions .ROUTE .COMPLEX Qty: 90 1RF Dose Instruction: TAKE ONE CAPSULE BY MOUTH EVERY DAY Rx Instructions: TAKE ONE CAPSULE BY MOUTH EVERY DAY aspirin 325 mg tablet,delayed release (DR/EC) 325 mg PO DAILY prednisone 10 mg tablet 10 mg PO DIRECTED Qty: 32 0RF Rx Instructions: see taper instructions: 4 tabs po qam x 5 days; 3 tabs po qam x 2 days; 2 tabs po qam x 2 days; 1 tab po qam x 2 days; then stop azithromycin 250 mg tablet See Rx Instructions PO .COMPLEX Qty: 6 0RF Rx Instructions: For 250 mg dose pack: take 500 mg today (day 1), then 250 mg for 4 days (days 2-5) PO losartan 100 mg tablet See Rx Instructions .ROUTE .COMPLEX Qty: 90 2RF Dose Instruction: TAKE ONE TABLET BY MOUTH EVERY DAY FOR BLOOD PRESSURE Rx Instructions: TAKE ONE TABLET BY MOUTH EVERY DAY FOR BLOOD PRESSURE rosuvastatin 5 mg tablet 5 mg PO DAILY Qty: 90 1RF Ozempic 0.25 mg or 0.5 mg (2 mg/3 mL) pen injector 0.25 mg SQ WEEKLY Qty: 3 0RF Rx Instructions: for 4 weeks spironolactone 25 mg tablet See Rx Instructions .ROUTE .COMPLEX Qty: 90 1RF Dose Instruction: TAKE ONE TABLET BY MOUTH EVERY MORNING FOR BLOOD PRESSURE AND EDEMA Rx Instructions: TAKE ONE TABLET BY MOUTH EVERY MORNING FOR BLOOD PRESSURE AND EDEMA Referrals Follow up/Referrals: Jem Narvaez MD [Primary Care Provider] - See instructions Activity Restrictions/Add. Instructions Additional Instructions/Restrictions: Take doxycycline as prescribed and Robaxin as needed for muscle pain. Follow-up closely with your primary care provider for continued management and return for any new or worsening symptoms. Clinical Impressions Clinical Impression: Bronchitis Instructions Patient Instructions: Acute Bronchitis Print Language Print Language: Hebrew Discharge ED Provider: Ewa Brown General Adult [facility] General Chief complaint: PAIN Stated complaint: left side pain Time Seen by Provider: 06/15/24 15:11 Mode of Arrival: Ambulatory Source of Information: Patient Limitations: No Limitations Description of Symptoms (Recalled from ER Triage Doc. by RN): pt presents to ED with c/o left sided pain that began last night. pt reports that his cough has been ongoing since 1 month ago. History of Present Illness HPI narrative: Patient is a 68-year-old male with past medical history of COPD, hypertension, hyperlipidemia, type 2 diabetes, A-fib on Eliquis presenting with cough. He states that he has had a cough ongoing for the past month for which he has seen his primary care provider several times and completed a course of a Z-Db as well as steroids but his cough has persisted and now he has developed some inspirational left-sided pain worse with coughing and with deep breath. He denies any history of VTE, reports compliance with Eliquis, no history of any recent long trips or car rides and not on any supplemental hormones. Denies any fevers or chills, cough is not productive. Related Data Home Medications ?Medication ?Instructions ?Recorded ?Confirmed aspirin 325 mg tablet,delayed 325 mg PO DAILY 02/12/24 06/04/24 release apixaban 5 mg tablet (Eliquis) 5 mg PO BID 05/14/24 06/04/24 Previous Rx's ?Medication ?Instructions ?Recorded diltiazem HCl 120 mg See Rx Instructions .Route 02/26/24 capsule,extended release 24 hr .COMPLEX #90 caps (Cartia XT) losartan 100 mg tablet See Rx Instructions .Route 04/03/24 .COMPLEX #90 tabs rosuvastatin 5 mg tablet 5 mg PO DAILY #90 tabs 05/14/24 semaglutide 0.25 mg or 0.5 mg (2 0.25 mg (0.368 mL) SQ WEEKLY #3 mL 05/15/24 mg/3 mL) subcutaneous pen injector (Ozempic) spironolactone 25 mg tablet See Rx Instructions .Route 05/21/24 .COMPLEX #90 tabs azithromycin 250 mg tablet See Rx Instructions PO .COMPLEX #6 06/04/24 tabs prednisone 10 mg tablet 10 mg PO DIRECTED #32 tabs 06/04/24 doxycycline hyclate 100 mg capsule 100 mg PO BID 7 days #14 caps 06/15/24 methocarbamol 750 mg tablet 750 mg PO Q8H PRN muscle pain #20 06/15/24 tabs Allergies Allergy/AdvReac Type Severity Reaction Status Date / Time ZAIN Inhibitors AdvReac Mild Cough Verified 06/04/24 08:40 [facility] Disclaimer: The information contained in this section may have been updated after the patient was seen, as this information can be updated by other users. Medical History Intolerance of continuous positive airway pressure (CPAP) ventilation Sleep apnea Osteoarthritis Hyperlipidemia BMI 37.0-37.9, adult Type 2 diabetes mellitus without complications Hypertension Surgical History History of hernia repair History of tonsillectomy Social History Smoking Status: Current every day smoker alcohol intake: current alcohol intake frequency: a few times a month substance use type: denies use current occupational status: retired Travel in the last 8 weeks: None household members: spouse, family and children housing: house current occupational exposures/hazards: No caffeine: Yes Other Medical History Have you received the Flu Vaccine for this season: Yes Have you received the Pneumonia Vaccine: No ROS Obtained: Yes Systems reviewed as appropriate & no additional complaints except as documented Physical Exam General General appearance: alert and in no apparent distress Head Head exam: atraumatic and normocephalic Chest Chest inspection: Present normal inspection and symmetric chest wall rise Respiratory Respiratory exam: Present normal lung sounds bilaterally; Absent respiratory distress Cardiovascular Cardiovascular exam: Present regular rate and normal rhythm Abdominal Exam Abdominal exam: Present soft; Absent tenderness Extremities Exam Extremities exam: Present normal inspection Neurological Exam Neurological exam: Present alert and oriented X3 Skin Skin exam: Present warm and dry Medical Decision Making Medical Records Medical records reviewed: Yes I reviewed the patient's medical records. Screening: Per USPSTF and CDC recommendations, given the prevalence of disease in our region, it is our hospital?s policy to screen for HIV and viral Hepatitis for all patients aged 18 and over and those with ongoing risk factors. Jef Inquiry Pt receiving controlled substance: No Vital Signs: 06/15/24 15:05 Temperature 98.8 F Temperature Source Oral Pulse Rate [Left Radial] 53 L Respiratory Rate 13 Blood Pressure [Right Arm] 133/63 Blood Pressure Mean [Right Arm] 86 02 Sat by Pulse Oximetry 97 Oxygen Delivery Method Room Air Lab Data Lab results reviewed: Yes I reviewed the patient's lab results. Lab Results 06/15/24 15:34: WBC 12.2 H, RBC 4.50 L, Hgb 14.8, Hct 43.7, MCV 97.1 H, MCH 32.8 H, MCHC 33.8, RDW 13.8, Plt Count 212, MPV 7.2 L, Neut % (Auto) 67.4, Lymph % (Auto) 25.2, Becker % (Auto) 4.8, Eos % (Auto) 1.8, Baso % (Auto) 0.9, Neut # (Auto) 8.2 H, Lymph # (Auto) 3.1, Becker # (Auto) 0.6, Eos # (Auto) 0.2, Baso # (Auto) 0.1, D-Dimer 0.29, Sodium 133 L, Potassium 4.3, Chloride 99, Carbon Dioxide 30, BUN 13, Creatinine 0.70, Glucose 234 H, Calcium 8.3 L, Total Bilirubin 0.6, AST 20, ALT 28, Alkaline Phosphatase 87, Troponin I < 0.01, Total Protein 6.3, Albumin 3.7 06/15/24 15:34 06/15/24 15:34 Orders (Tests/Meds): ED MEDICATIONS Discontinued Medications Generic Name Dose Route Start Last Admin Trade Name Freq PRN Reason Stop Dose Admin Morphine Sulfate 4 mg 06/15/24 15:26 06/15/24 15:58 Morphine 2mg/Ml Syringe IV 06/15/24 15:27 4 mg ONCE ONE Administration Ondansetron HCl 4 mg 06/15/24 15:26 06/15/24 15:58 Ondansetron 4mg/2ml Vial IV 06/15/24 15:27 4 mg ONCE ONE Administration ORDERS Category Date Time Status Chest XR -- portable [XR chest portable] Stat Exams 06/15/24 15:26 Completed CBC w/Auto Diff [Complete Blood Count Auto Diff] Stat Lab 06/15/24 15:34 Completed CMP [Comprehensive Metabolic Panel] Stat Lab 06/15/24 15:34 Results D-Dimer Stat Lab 06/15/24 15:34 Completed HIV (1&2) Antibody Rapid Stat Lab 06/15/24 15:34 Received Hep C Ab with Reflex to RNA Stat Lab 06/15/24 15:34 Received Trop I [Troponin I] Stat Lab 06/15/24 15:34 Results EKG Request [ECG Request] Stat Y 06/15/24 15:26 Ordered ECG Data Tracing #1: I reviewed this ECG and interpreted as documented below: EKG showing rate controlled A-fib at a rate of 50, right bundle branch block, left anterior fascicular block, no acute ischemia or infarction ECG initial impression date: 06/15/24 ECG initial impression time: 16:18 ECG normal with no acute: arrhythmias, ischemia, conduction abnormalities, chamber hypertrophy Normal Sinus Rhythm: No HEART Score History (anamnesis): Slightly suspicious ECG: Non-specific disturbance Age: >65 years Risk factors: 3 or more risk factors Troponin: </= normal limit HEART Score: 5 Medical Decision Narrative: Patient is a 68-year-old male with past medical history COPD, hyperlipidemia, hypertension, type 2 diabetes and A-fib on Eliquis presenting with 1 month history of cough now with left-sided inspirational chest pain. Has completed steroids and Z-Db without improvement in symptoms. He is hemodynamically stable with an otherwise reassuring exam and low risk for VTE, on Eliquis and reports compliance but given no development of inspirational chest pain will obtain labs and imaging for further evaluation. EKG showing rate controlled A-fib without acute ischemia or infarction, CBC showing leukocytosis of 12 likely in the setting of demargination given patient's recent steroid use, CMP nonactionable though glucose is slightly elevated anion gap within normal limits and he is diabetic recently on steroids. He has otherwise normal CMP, troponin negative, chest x-ray per radiologist read showing no acute process but I feel as though I see some perihilar possible infiltrate consistent with possible bronchitis which would be consistent with patient's symptoms. Given this we will prescribe course of doxycycline to preferred pharmacy with first dose given in the ER today. Also given Robaxin for likely muscle pain. Discussed this with patient who is agreeable with plan and to follow-up with PCP. Discharged in stable condition. Critical Care Critical Care Time Critical Care Time: No
[2024-06-15 15:53] LABS: Basophils # 0.1 K/mm3 (0-0.2); Basophils % 0.9 % (0.1-2.0); Eosinophils # 0.2 K/mm3 (0.0-0.4); Eosinophils % 1.8 % (0.1-12.0); Hematocrit 43.7 % (42.0-52.0); Hemoglobin 14.8 g/dL (14.1-18.0); Lymphocytes # 3.1 K/mm3 (0.7-4.5); Lymphocytes % 25.2 % (10-50); Mean Corpuscular HGB Conc 33.8 g/dL (31.8-35.4); Mean Corpuscular Hemoglobin 32.8 pg (27.0-31.2); Mean Corpuscular Volume 97.1 fl (80-94); Mean Platelet Volume 7.2 fl (7.4-10.4); Monocytes # 0.6 K/mm3 (0.1-1.0); Monocytes % 4.8 % (1.7-9.3); Neutrophils # 8.2 K/mm3 (1.8-7.8); Neutrophils % 67.4 % (37.0-80.0); Platelet Count 212 K/mm3 (142-424); Red Cell Distribution Width 13.8 % (11.5-17.5); White Blood Count 12.2 K/mm3 (4.8-10.8)
[2024-06-15 15:58] LABS: Albumin Level 3.7 g/dl (3.5-5.0); Chloride 99 mmol/L (98-107); Potassium 4.3 mmoL/L (3.5-5.1); Sodium 133 mmol/L (136-145)
[2024-06-15] MEDS: MORPHINE 2MG/ML SYRINGE 4 MG IV (15:58)
[2024-06-15] MEDS: ONDANSETRON 4MG/2ML VIAL 4 MG IV (15:58)
[2024-06-15 16:01] LABS: Alanine Aminotransferase 28 U/L (12-78); Albumin/Globulin Ratio 1.4 (1.1-1.8); Alkaline Phosphatase 87 U/L (38-126); Anion Gap 8.3 mEq/L (5-15); Aspartate Amino Transferase 20 U/L (17-59); Bilirubin,Total 0.6 mg/dl (0.2-1.3); Blood Urea Nitrogen 13 mg/dl (9-20); Calcium 8.3 mg/dl (8.4-10.2); Carbon Dioxide 30 mmol/L (22.0-30.0); Creatinine Clearance Estimated 82 mL/min (50-200); Estimated Glomerular Filt Rate 112 ml/min (>60); GFR (African American) 136 ML/MIN (>60); Globulin 2.6 g/dL (1.3-3.2); Glucose 234 mg/dl (74-100); Total Protein,Serum 6.3 g/dl (6.3-8.2)
[2024-06-15 16:09] LABS: D-Dimer 0.29 ug/mL (0.0-0.5)
[2024-06-15 16:24] LABS: Troponin I < 0.01 ng/ml (0.00-0.034)
[2024-06-15 17:02] LABS: HIV (1&2) Antibody Rapid NONREACTIVE (NONREACTIVE)
[2024-06-15] MEDS: METHOCARBAMOL 500MG TABLET 1500 MG PO (17:03)
[2024-06-15] MEDS: DOXYCYCLINE HYCL 100 MG TABLET PO (17:03)
[2024-06-15 17:09] VITALS: BP 125/79; PULSE 80; RESP 18; TEMP 36.7; O2SAT 97
[2024-06-18 05:10] LABS: HCV Ab Non Reactive (Non Reactive)
== END 2024-06-15 17:10 | disposition home or self-care (01) ==
PROVIDERS: Emergency Provider Emergency Medicine; PCP Internal Medicine
DX: J40 Bronchitis, not specified as acute or chronic (principal); R10.32 Left lower quadrant pain; R05.3 Chronic cough
CPT/HCPCS: 71045; 80053; 84484; 85025; 85378; 86803; 87389; 96374; 96375; 99283; J2270; J2405

== ENCOUNTER 2024-07-18 12:49 | Observation (INO) | payer MEDICARE, SELFPAY ==
[2024-07-18] VITALS (16 sets, daily range): BP systolic 84–152; BP diastolic 56–89; PULSE 80–119; RESP 12–22; TEMP 36.7–37.1; O2SAT 94–97; BMI 42.3; BMI 43.2
--- NOTE | 2024-07-18 12:53 | ECG_ITS ---
APPROVED REPORT Exam: Resting ECG HR:122 bpm ECG Measurements Heart Rate 122 AXES NH 170 P 194 QRSd 124 QRS -69 QT 316 T 27 QTc 389 Conclusion SINUS TACHYCARDIA RIGHT BUNDLE BRANCH BLOCK [120+ ms QRS DURATION, UPRIGHT V1, 40+ ms S IN I/aVL/V4/V5/V6] LEFT ANTERIOR FASCICULAR BLOCK [QRS AXIS <= -45, QR IN I, RS IN II] Electronically signed by : LIBRADO SAUER, 07/18/2024 15:28:30
--- NOTE | 2024-07-18 12:59 | CT_ITS ---
PROCEDURE INFORMATION: Exam: CTA Chest With Contrast Exam date and time: 07/18/2024 1:07 PM Age: 68 years old Clinical indication: Other: Hypotension, rusb murmur; Additional info: Concern for dissection. Rusb murmur, hypotension TECHNIQUE: Imaging protocol: Computed tomographic angiography of the chest with contrast. Exam focused on the arteries. 3D rendering (Not supervised by radiologist): MIP and/or 3D reconstructed images were created by the technologist. Radiation optimization: All CT scans at this facility use at least one of these dose optimization techniques: automated exposure control; mA and/or kV adjustment per patient size (includes targeted exams where dose is matched to clinical indication); or iterative reconstruction. Contrast material: [id number]; Contrast volume: 80 ml; Contrast route: INTRAVENOUS (IV); COMPARISON: CT LUNG SCREENING 03/27/2023 2:25 PM FINDINGS: Pulmonary arteries: Normal. No pulmonary emboli. Aorta: 41 mm ectasia mid ascending thoracic aorta. Moderate aortic atherosclerosis with several ulcerated plaques in the aortic arc (no penetrating atherosclerotic ulcer). No aortic aneurysm or dissection. Lungs: Subpleural atelectasis of the dependent portions of the lungs. Linear atelectasis in the bilateral lung bases with mild scarring. Subtle focal area of scarring in the right upper lobe. No consolidation. Pleural spaces: Unremarkable. No pneumothorax. No pleural effusion. Heart: Calcifications of the aortic valve annulus. There is calcification of the mitral valve annulus. Mild cardiomegaly. High likelihood for lipomatous hypertrophy of the interatrial septum. Coronary arteries: There is moderate atherosclerotic calcification of the coronary arteries. Lymph nodes: Unremarkable. No enlarged lymph nodes. Bones/joints: Mild multilevel degenerative changes of the spine. Soft tissues: Unremarkable. IMPRESSION: 1. No aortic dissection. 2. Moderate aortic atherosclerosis and ectasia of the mid ascending thoracic aorta. 3. Small ulcerated atherosclerotic plaques in the aortic arc without penetrating atherosclerotic ulcers.
--- NOTE | 2024-07-18 12:59 | CT_ITS ---
PROCEDURE INFORMATION: Exam: CTA Abdomen and Pelvis With Contrast Exam date and time: 07/18/2024 1:07 PM Age: 68 years old Clinical indication: Hypotension; Additional info: Concern for dissection. Rusb murmur, hypotension TECHNIQUE: Imaging protocol: Computed tomographic angiography of the abdomen and pelvis with contrast. Exam focused on the arteries. 3D rendering (Not supervised by radiologist): MIP and/or 3D reconstructed images were created by the technologist. Radiation optimization: All CT scans at this facility use at least one of these dose optimization techniques: automated exposure control; mA and/or kV adjustment per patient size (includes targeted exams where dose is matched to clinical indication); or iterative reconstruction. Contrast material: [id number]; Contrast volume: 80 ml; Contrast route: INTRAVENOUS (IV); COMPARISON: CT ANGIO CHEST 07/18/2024 1:07 PM FINDINGS: Aorta: Moderate atherosclerosis of the aorta, specifically at the infrarenal segment without stenosis or occlusion. No aneurysms or dissection. Celiac trunk and mesenteric arteries: No occlusion or significant stenosis. Renal arteries: Dual right renal arteries. No significant stenosis or occlusion of the right renal artery. No stenosis or occlusion of the left renal artery. Right iliac arteries: Mild fusiform ectasia of the right common iliac artery (1.5 cm). No stenosis or occlusion. Left iliac arteries: Mild fusiform ectasia of the left common iliac artery (1.4 cm). No stenosis or occlusion. Liver: 20 cm hepatomegaly and diffuse hepatic steatosis without liver lesions. Gallbladder and biliary ducts: Unremarkable. No calcified stones. No ductal dilation. Pancreas: Unremarkable. No mass. No ductal dilation. Spleen: Benign punctate calcified splenic granulomas. Adrenal glands: Unremarkable. No mass. Kidneys and ureters: Bilateral simple renal cysts, largest on the right measures 2 cm and largest on the left measures 7.2 cm. Stomach and bowel: Mild constipation and colonic diverticulosis. No bowel obstruction or inflammation. Appendix: No evidence of appendicitis. Intraperitoneal space: Unremarkable. No free air. No significant fluid collection. Lymph nodes: Unremarkable. No enlarged lymph nodes. Urinary bladder: Bladder is decompressed. Reproductive: Prostate is small in size. Bones/joints: Mild multilevel degenerative changes of the spine. Mild osteoarthritis of the bilateral hip joints. Soft tissues: Small fat containing nonobstructive inguinal hernias. Small fat containing nonobstructive umbilical hernia. IMPRESSION: 1. Mild/moderate atherosclerotic disease without dissection, stenosis, or occlusion. 2. Mild ectasia of the bilateral common iliac arteries.
[2024-07-18 13:10] LABS: Basophils # 0.2 K/mm3 (0-0.2); Basophils % 1.2 % (0.1-2.0); Eosinophils # 0.3 K/mm3 (0.0-0.4); Eosinophils % 2.6 % (0.1-12.0); Hematocrit 48.5 % (42.0-52.0); Hemoglobin 17.1 g/dL (14.1-18.0); Lymphocytes # 2.6 K/mm3 (0.7-4.5); Lymphocytes % 20.6 % (10-50); Mean Corpuscular HGB Conc 35.2 g/dL (31.8-35.4); Mean Corpuscular Hemoglobin 33.3 pg (27.0-31.2); Mean Corpuscular Volume 94.6 fl (80-94); Mean Platelet Volume 7.2 fl (7.4-10.4); Monocytes # 0.8 K/mm3 (0.1-1.0); Monocytes % 6.2 % (1.7-9.3); Neutrophils # 8.8 K/mm3 (1.8-7.8); Neutrophils % 69.4 % (37.0-80.0); Platelet Count 305 K/mm3 (142-424); Red Blood Count 5.13 M/mm3 (4.60-6.20); Red Cell Distribution Width 13.9 % (11.5-17.5); White Blood Count 12.6 K/mm3 (4.8-10.8)
[2024-07-18 13:12] LABS: VBG Base Excess -2.6 mmol/L (-2.4-2.3); VBG HCO3 22.5 mmol/L (23-30); VBG Oxygen Saturation 78.8 % (50-70); VBG PCO2 38.5 mmol/L (35-51); VBG PH 7.38 mmol/L (7.31-7.41); VBG PO2 41.8 mmol/L (28-40); VBG Total CO2 23.7 mmol/L (23-27)
[2024-07-18] MEDS: 0.9 % SODIUM CHLORIDE 50 ML VIAL IV (13:14)
[2024-07-18] MEDS: SODIUM CHLORIDE 0.9% 10ML SYR (RAD ONLY) 10 ML IV (13:14)
[2024-07-18] MEDS: IOPAMIDOL-370 (76%);100ML BOTTLE 80 ML IV (13:14)
[2024-07-18 13:15] LABS: Lactate Venous 5.2 mmol/L (0.4-2.0)
--- NOTE | 2024-07-18 13:19 | [facility].EDCP ---
Discharge Plan Disposition Chief Complaint: Chest Pain Prescriptions Prescriptions: No Action Eliquis 5 mg tablet 5 mg PO BID diltiazem HCl [Cartia XT] 120 mg capsule,extended release 24hr See Rx Instructions .ROUTE .COMPLEX Qty: 90 1RF Dose Instruction: TAKE ONE CAPSULE BY MOUTH EVERY DAY Rx Instructions: TAKE ONE CAPSULE BY MOUTH EVERY DAY aspirin 325 mg tablet,delayed release (DR/EC) 325 mg PO DAILY prednisone 10 mg tablet 10 mg PO DIRECTED Qty: 32 0RF Rx Instructions: see taper instructions: 4 tabs po qam x 5 days; 3 tabs po qam x 2 days; 2 tabs po qam x 2 days; 1 tab po qam x 2 days; then stop azithromycin 250 mg tablet See Rx Instructions PO .COMPLEX Qty: 6 0RF Rx Instructions: For 250 mg dose pack: take 500 mg today (day 1), then 250 mg for 4 days (days 2-5) PO losartan 100 mg tablet See Rx Instructions .ROUTE .COMPLEX Qty: 90 2RF Dose Instruction: TAKE ONE TABLET BY MOUTH EVERY DAY FOR BLOOD PRESSURE Rx Instructions: TAKE ONE TABLET BY MOUTH EVERY DAY FOR BLOOD PRESSURE rosuvastatin 5 mg tablet 5 mg PO DAILY Qty: 90 1RF Ozempic 0.25 mg or 0.5 mg (2 mg/3 mL) pen injector 0.25 mg SQ WEEKLY Qty: 3 0RF Rx Instructions: for 4 weeks spironolactone 25 mg tablet See Rx Instructions .ROUTE .COMPLEX Qty: 90 1RF Dose Instruction: TAKE ONE TABLET BY MOUTH EVERY MORNING FOR BLOOD PRESSURE AND EDEMA Rx Instructions: TAKE ONE TABLET BY MOUTH EVERY MORNING FOR BLOOD PRESSURE AND EDEMA doxycycline hyclate 100 mg capsule 100 mg PO BID 7 Days Qty: 14 0RF methocarbamol 750 mg tablet 750 mg PO Q8H PRN (Reason: muscle pain) Qty: 20 0RF Clinical Impressions Clinical Impression: Chest pain, Acidosis, lactic Print Language Print Language: Faroese Discharge ED Provider: Kvng Balderrama HPI General Chief Complaint: Chest Pain Stated Complaint: shoulder back pain dizzy soa Time Seen by Provider: 07/18/24 12:59 Mode of Arrival: Wheelchair Source of Information: Patient Limitations: No Limitations Description of Symptoms (Recalled from ER Triage Doc. by RN): sweating,shortness of breath,cp back and shoulder pain History of Present Illness HPI narrative: Please note that above description of symptoms, in this electronic medical record under categorization of recalled from ER triage doctor by RN are reflective of an initial nursing assessment, however, is not reflective of my full history and physical exam that was personally taken and clarified. Consequentially, this preceding description of symptoms, which may include the patient's categorized chief complaint in the EMR, do not reflect my personal clinical impression, and the ultimate description of history of present illness and patient stated complaints should be deferred to this section of the note. Unless stated otherwise or congruent with this section of the note, additional signs, symptoms, or incongruence should be interpreted as inaccurate with my clinical impression. Related Data Home Medications ?Medication ?Instructions ?Recorded ?Confirmed aspirin 325 mg tablet,delayed 325 mg PO DAILY 02/12/24 06/04/24 release apixaban 5 mg tablet (Eliquis) 5 mg PO BID 05/14/24 06/04/24 Previous Rx's ?Medication ?Instructions ?Recorded diltiazem HCl 120 mg See Rx Instructions .Route 02/26/24 capsule,extended release 24 hr .COMPLEX #90 caps (Cartia XT) losartan 100 mg tablet See Rx Instructions .Route 04/03/24 .COMPLEX #90 tabs rosuvastatin 5 mg tablet 5 mg PO DAILY #90 tabs 05/14/24 semaglutide 0.25 mg or 0.5 mg (2 0.25 mg (0.368 mL) SQ WEEKLY #3 mL 05/15/24 mg/3 mL) subcutaneous pen injector (Ozempic) spironolactone 25 mg tablet See Rx Instructions .Route 05/21/24 .COMPLEX #90 tabs azithromycin 250 mg tablet See Rx Instructions PO .COMPLEX #6 06/04/24 tabs prednisone 10 mg tablet 10 mg PO DIRECTED #32 tabs 06/04/24 doxycycline hyclate 100 mg capsule 100 mg PO BID 7 days #14 caps 06/15/24 methocarbamol 750 mg tablet 750 mg PO Q8H PRN muscle pain #20 06/15/24 tabs Allergies Allergy/AdvReac Type Severity Reaction Status Date / Time ZAIN Inhibitors AdvReac Mild Cough Verified 06/04/24 08:40 [facility] Disclaimer: The information contained in this section may have been updated after the patient was seen, as this information can be updated by other users. Medical History Intolerance of continuous positive airway pressure (CPAP) ventilation Sleep apnea Osteoarthritis Hyperlipidemia BMI 37.0-37.9, adult Type 2 diabetes mellitus without complications Hypertension Surgical History History of hernia repair History of tonsillectomy Social History Smoking Status: Current every day smoker alcohol intake: current alcohol intake frequency: a few times a month substance use type: denies use current occupational status: retired household members: spouse, family and children housing: house current occupational exposures/hazards: No caffeine: Yes Other Medical History Have you received the Flu Vaccine for this season: Yes Have you received the Pneumonia Vaccine: No ROS Obtained: Yes All systems reviewed & no additional complaints except as documented Physical Exam General General appearance: alert, in no apparent distress and obese Head Head exam: atraumatic and normocephalic Eye Eye exam: Present normal appearance, PERRL and EOMI Neck Neck exam: Present normal inspection, full ROM and trachea midline Chest Chest inspection: Present normal inspection and symmetric chest wall rise Respiratory Respiratory exam: Present normal lung sounds bilaterally; Absent respiratory distress, wheezes, stridor, accessory muscle use or prolonged expiratory phase Cardiovascular Cardiovascular exam: Present normal rhythm, tachycardia, systolic murmur (Right upper sternal border systolic murmur) and other (Pulses equal symmetric in upper and lower extremities) Abdominal Exam Abdominal exam: Present soft; Absent distention, tenderness or pulsatile mass Extremities Exam Extremities exam: Present edema Neurological Exam Neurological exam: Present alert, oriented X3, CN II-XII intact and normal gait; Absent motor sensory deficit Skin Skin exam: Present warm, dry and diaphoresis; Absent erythema HEART Score HEART Score HEART Score assessment performed?: Yes History (anamnesis): Highly suspicious ECG: Non-specific disturbance Age: >65 years Risk factors: 3 or more risk factors Troponin: </= normal limit HEART Score: 7 Critical Care Critical Care Time Critical Care Time: No Medical Decision Making Medical Records Medical records reviewed: Yes I reviewed the patient's medical records. Jef Inquiry Pt receiving controlled substance: No Jef was queried for this patient: No Vital Signs Vital Signs: 07/18/24 12:50 07/18/24 13:15 07/18/24 13:21 Temperature 98.1 F Temperature Source Oral Pulse Rate 112 H 108 H Pulse Rate [Right] 119 H Respiratory Rate 22 22 14 Blood Pressure 89/57 L 84/60 L Blood Pressure [Right Arm] 91/65 L Blood Pressure Mean Blood Pressure Mean [Right Arm] 73 02 Sat by Pulse Oximetry 95 94 L 94 L Oxygen Delivery Method Room Air Room Air Room Air 07/18/24 13:22 07/18/24 13:25 07/18/24 13:30 Temperature Temperature Source Pulse Rate 109 H 108 H 109 H Pulse Rate [Right] Respiratory Rate 17 14 18 Blood Pressure 87/56 L 91/64 L 89/62 L Blood Pressure [Right Arm] Blood Pressure Mean Blood Pressure Mean [Right Arm] 02 Sat by Pulse Oximetry 94 L 96 95 Oxygen Delivery Method Room Air Room Air Room Air 07/18/24 14:00 07/18/24 14:31 Temperature Temperature Source Pulse Rate 87 88 Pulse Rate [Right] Respiratory Rate 14 Blood Pressure 102/67 L 120/76 Blood Pressure [Right Arm] Blood Pressure Mean 90 Blood Pressure Mean [Right Arm] 02 Sat by Pulse Oximetry 96 97 Oxygen Delivery Method Room Air Room Air Lab Data Labs: Lab Results 07/18/24 12:55: WBC 12.6 H, RBC 5.13, Hgb 17.1, Hct 48.5, MCV 94.6 H, MCH 33.3 H, MCHC 35.2, RDW 13.9, Plt Count 305, MPV 7.2 L, Neut % (Auto) 69.4, Lymph % (Auto) 20.6, [place] % (Auto) 6.2, Eos % (Auto) 2.6, Baso % (Auto) 1.2, Neut # (Auto) 8.8 H, Lymph # (Auto) 2.6, [place] # (Auto) 0.8, Eos # (Auto) 0.3, Baso # (Auto) 0.2, PT 11.0, INR 0.98, APTT 31.3 H, D-Dimer 0.56 H, Sodium 137, Potassium 4.5, Chloride 101, Carbon Dioxide 23, Anion Gap 17.5 H, BUN 21 H, Creatinine 1.40 H, Estimated Creat Clear 59, Estimated GFR 50 L, Est GFR ( Amer) 61, Glucose 222 H, Hemoglobin A1c 9.7 H, Lactate 4.6 H, Calcium 9.5, Magnesium 1.8, Total Bilirubin 0.7, AST 31, ALT 32, Alkaline Phosphatase 116, Troponin I 0.02, NT-Pro-B Natriuret Pep 187 H, Total Protein 7.3, Albumin 4.3, Globulin 3.0, Albumin/Globulin Ratio 1.4, Triglycerides 433 H, Cholesterol 215 H, LDL Cholesterol Direct 116.07, HDL Cholesterol 30 L, Cholesterol/HDL Ratio 7.2 H, Lipase 129 07/18/24 13:01: SARS-CoV-2 (PCR) Detected A, Influenza A Untype (PCR) Not detected, Influenza Type B (PCR) Not detected 07/18/24 13:05: VBG pH 7.38, VBG pCO2 38.5, VBG pO2 41.8 H, VBG HCO3 22.5 L, VBG Total CO2 23.7, VBG O2 Saturation 78.8 H, VBG Base Excess -2.6 L, VBG Lactic Acid 5.2 H 07/18/24 12:55 07/18/24 12:55 Response Orders (Tests/Meds): ED MEDICATIONS Generic Name Dose Route Start Last Admin Trade Name Freq PRN Reason Stop Dose Admin Lactated Ringer's 1,000 mls @ 999 mls/hr 07/18/24 14:22 07/18/24 14:26 Lactated Ringer's 1000 Ml Bag IV 07/18/24 15:22 999 mls/hr .Q1H1M ONE Administration Discontinued Medications Generic Name Dose Route Start Last Admin Trade Name Freq PRN Reason Stop Dose Admin Lactated Ringer's 1,000 mls @ 999 mls/hr 07/18/24 13:15 07/18/24 13:23 Lactated Ringer's 1000 Ml Bag IV 07/18/24 14:15 999 mls/hr .Q1H1M ONE Administration Ceftriaxone Sodium 2 gm/ 100 mls @ 200 mls/hr 07/18/24 13:15 07/18/24 13:23 Sodium Chloride IV 07/18/24 13:44 200 mls/hr ONCE ONE Administration Iopamidol 80 ml 07/18/24 13:13 07/18/24 13:14 Iopamidol-370 (76%);100ml Bottle IV 07/18/24 13:14 80 ml ONCE ONE Administration Sodium Chloride 50 ml 07/18/24 13:13 07/18/24 13:14 0.9 % Sodium Chloride 50 Ml Vial IV 07/18/24 13:14 50 ml ONCE ONE Administration Sodium Chloride 10 ml 07/18/24 13:13 07/18/24 13:14 Sodium Chloride 0.9% 10ml Syr (Rad Only) IV 07/18/24 13:14 10 ml ONCE ONE Administration ORDERS Category Date Time Status CT angio abdomen pelvis Stat Cat Scan 07/18/24 12:59 Completed CTA Chest [CT angio chest - dissection] Stat Cat Scan 07/18/24 12:59 Completed POCUS Point of Care (ER Only) Stat Exams 07/18/24 13:00 Completed Complete Blood Count Auto Diff Stat Lab 07/18/24 12:55 Completed Comprehensive Metabolic Panel Stat Lab 07/18/24 12:55 Completed D-Dimer Stat Lab 07/18/24 12:55 Completed Hemoglobin A1C Stat Lab 07/18/24 12:55 Completed Lactic Acid Stat Lab 07/18/24 12:55 Completed Lipase Stat Lab 07/18/24 12:55 Completed Lipid Panel Stat Lab 07/18/24 12:55 Completed Magnesium Stat Lab 07/18/24 12:55 Completed NT Pro Brain Natriuretic Pep. Stat Lab 07/18/24 12:55 Completed PT INR [Prothrombin Time INR] Stat Lab 07/18/24 12:55 Completed PTT [Activated Partial Thrombo Time] Stat Lab 07/18/24 12:55 Completed Rapid PCR Covid and Flu A/B Stat Lab 07/18/24 13:01 Completed Troponin I Q3H Lab 07/18/24 16:00 Ordered Troponin I Q3H Lab 07/18/24 19:00 Ordered Troponin I Stat Lab 07/18/24 12:55 Completed Blood Culture Stat Micro 07/18/24 13:15 Received Venous Blood Gas Stat RT 07/18/24 13:05 Completed MDM Narrative Medical Decision Narrative: 68-year-old male history of hypertension, hyperlipidemia, diabetes, atrial flutter on Eliquis, type 2 diabetes, morbid obesity, tobacco use disorder presenting with back pain and diaphoresis. Patient states about 30 minutes prior to arrival, he was cooking for Thanksgiving when he had an acute pain go between his shoulders, upper back of his neck and was associated with nausea and diaphoresis. Was present until just before he got to the emergency department and self abated. Patient took 324 mg of aspirin prior to arrival. No chest pain, but was feeling short of breath at the time. No syncope. No neurologic deficits. Never had anything like this in the past. History was obtained via conversation with patient. On arrival, patient hemodynamically stable, alert, oriented x4, appropriate, GCS 15, moving all extremities spontaneously, pupils equal and reactive to light. Full physical exam performed and significant for obese male who is in no acute distress, but he is diaphoretic. Skin is warm and pink. Cardiac exam with faint right upper sternal border systolic ejection murmur. No diastolic murmur auscultated. Lungs are clear to auscultation. Patient's abdomen soft, nontender, nondistended, but overlying erythema associated which blanches. Lower extremity edema 2+ pitting. Differential includes ACS, FL, dissection, PE, pneumonia, pneumothorax, pancreatitis, among others. Patient was given 1 L fluids, 2 g ceftriaxone for symptomatic management and correction of underlying abnormalities. Patient placed on continuous cardiac monitoring and continuous pulse ox with initial blood pressure 91/65, heart rate 119, saturation 95% on room air. Independent interpretation of EKG shows sinus tachycardia with right bundle branch block morphology and left anterior fascicular block morphology. [place] 170, QRS 124, QTc 389. Leftward axis. Repeat ED EKG shortly thereafter similar to the first. Workup independently interpreted and significant for nonactionable mild leukocytosis. Patient's chemistry remarkable for NALINI, lactic acidosis. Initial troponin negative, BNP negative. On independent interpretation of imaging, no acute dissection or other intrathoracic abnormality. See radiology read for full review of final results. Heart score 7. On reevaluation, patient resting comfortably feeling much better after 2 L. Hospital medicine consulted and interactive discussion was had, given heart score of 7, concerning history and presentation, to be admitted. Given patient presentation, workup, history, this most likely represents stable angina. Because patient high risk for clinical decompensation, deemed appropriate for inpatient admission. Results were relayed to patient who voiced understanding and patient was agreeable to inpatient admission and management. Patient was admitted to the hospital for further definitive management. Sales Consulting Director disclaimer Much of this encounter note is an electronic paper testing supervisor spoken language to printed text. Electronic paper testing supervisor of the spoken language may permit errors. Although I have reviewed the note, some errors may still exist.
--- NOTE | 2024-07-18 13:20 | ECG_ITS ---
APPROVED REPORT Exam: Resting ECG HR:110 bpm ECG Measurements Heart Rate 110 AXES NC 215 P 106 QRSd 128 QRS -66 QT 310 T 66 QTc 375 Conclusion SINUS TACHYCARDIA WITH FIRST DEGREE AV BLOCK RIGHT BUNDLE BRANCH BLOCK [120+ ms QRS DURATION, UPRIGHT V1, 40+ ms S IN I/aVL/V4/V5/V6] LEFT ANTERIOR FASCICULAR BLOCK [QRS AXIS <= -45, QR IN I, RS IN II] POSSIBLE ANTERIOR MYOCARDIAL INFARCTION , PROBABLY OLD [30 ms Q WAVE IN V3/V4, OR R < 0.2 mV IN V4] Electronically signed by : LIBRADO SAUER, 07/18/2024 15:28:40
[2024-07-18] MEDS: LACTATED RINGERS 1000ML 1,000 ML 999 ML IV ×2 (13:23→14:26)
[2024-07-18] MEDS: CEFTRIAXONE SODIUM 2 GM in 0.9 % SODIUM CHLORIDE 100 ML IV (13:23)
[2024-07-18 13:27] LABS: Alanine Aminotransferase 32 U/L (12-78); Albumin Level 4.3 g/dl (3.5-5.0); Albumin/Globulin Ratio 1.4 (1.1-1.8); Alkaline Phosphatase 116 U/L (38-126); Anion Gap 17.5 mEq/L (5-15); Aspartate Amino Transferase 31 U/L (17-59); Bilirubin,Total 0.7 mg/dl (0.2-1.3); Blood Urea Nitrogen 21 mg/dl (9-20); Calcium 9.5 mg/dl (8.4-10.2); Carbon Dioxide 23 mmol/L (22.0-30.0); Chloride 101 mmol/L (98-107); Chol/HDL Ratio 7.2 (1-3.5); Cholesterol 215 mg/dl (140-200); Creatinine Clearance Estimated 59 mL/min (50-200); Estimated Glomerular Filt Rate 50 ml/min (>60); GFR (African American) 61 ML/MIN (>60); Glucose 222 mg/dl (74-100); HDL Cholesterol 30 mg/dl (40-60); Lipase 129 U/L (23-300); Magnesium 1.8 mg/dl (1.6-2.3); Potassium 4.5 mmoL/L (3.5-5.1); Sodium 137 mmol/L (136-145); Total Protein,Serum 7.3 g/dl (6.3-8.2)
[2024-07-18 13:28] LABS: Triglycerides 433 mg/dl (30-150)
[2024-07-18 13:36] LABS: Lactic Acid 4.6 mmol/L (0.7-2.1)
[2024-07-18 13:38] LABS: Direct LDL Cholesterol 116.07 mg/dL (100-129)
[2024-07-18 13:41] LABS: NT Pro Brain Natriuretic Pep. 187 pg/mL (0-125); Troponin I 0.02 ng/ml (0.00-0.034)
[2024-07-18 13:44] LABS: Activated Partial Thrombo Time 31.3 seconds (22.8-30.6); INR 0.98 (0.9-1.1)
[2024-07-18 13:50] LABS: Hemoglobin A1C 9.7 % (4.0-6.0)
[2024-07-18 13:57] LABS: D-Dimer 0.56 ug/mL (0.0-0.5)
[2024-07-18 14:34] LABS: Influenza A, PCR Not Detected (NotDetected); Influenza B, PCR Not Detected (NotDetected)
[2024-07-18 15:05] LABS: Coronavirus 19, PCR Detected (NotDetected)
--- NOTE | 2024-07-18 15:39 | PC.NURSE ---
report called to Jeanne
--- NOTE | 2024-07-18 15:46 | ECG_ITS ---
APPROVED REPORT Exam: Resting ECG HR:82 bpm ECG Measurements Heart Rate 82 AXES VA 253 P 56 QRSd 133 QRS -59 QT 366 T 82 QTc 404 Conclusion SINUS RHYTHM WITH FIRST DEGREE AV BLOCK RIGHT BUNDLE BRANCH BLOCK [120+ ms QRS DURATION, UPRIGHT V1, 40+ ms S IN I/aVL/V4/V5/V6] LEFT ANTERIOR FASCICULAR BLOCK [QRS AXIS <= -45, QR IN I, RS IN II] POSSIBLE ANTERIOR MYOCARDIAL INFARCTION , PROBABLY OLD [30 ms Q WAVE IN V3/V4, OR R < 0.2 mV IN V4] ABNORMAL ECG UNCONFIRMED REPORT Electronically signed by : ANUPAMA DOUGLAS, 07/19/2024 06:20:43
--- NOTE | 2024-07-18 15:52 | PC.NURSE ---
spoke with MD regarding sepsis criteria. he does not want to do full sepsis bolus due to CHF
[2024-07-18 16:10] LABS: Troponin I 0.02 ng/ml (0.00-0.034)
--- NOTE | 2024-07-18 16:10 | PC.NURSE ---
arrived by w/c from ED
--- NOTE | 2024-07-18 16:43 | P.HP_ITS ---
History of Present Illness *Admission Date: 07/18/24 *Reason for visit:: Shortness of breath *History of present illness: Luis Hernandez is a 68-year-old male with a medical history significant for chronic tobacco smoker, A-flutter on Eliquis, hypertension, hyperlipidemia, type 2 diabetes, who presents with an episode of shortness of breath, back pain, diaphoresis. He states he was getting turkey this morning when he felt sudden onset shortness of breath that self resolved over the few minutes. Shortly after, he began experiencing pain over his shoulder blades and neck pain that lasted about an hour. He also had nausea/diaphoresis during this period. He presented to the ED with the symptoms after taking aspirin 324 mg. Of note, patient states he has been having increased productive cough for more than a month. He has been treated with 2 rounds of antibiotics with some resolution over the past few days. He also states he took Lasix 80 mg at home with significant diuresis, which he usually only takes as needed. Vital signs initially show sinus tachycardia 112, soft pressures 89/57 which have both resolved. Initial EKG did show ST changes including mild depression in anterior lead as well as new right bundle gerson block compared to previous EKG about a year ago. Patient denies chest pain. Tested positive for COVID-19. Other workup significant for WBC 12.6, AGAP 17.5, creatinine 1.4 baseline (0.70), BNP 187. Troponins negative Dr. Fuentes was contacted and recommended further workup for ACS like symptoms. Case discussed with ED provider and decision was made to admit patient for further evaluation of shortness of breath, and potential ACS/unstable angina. [facility] Disclaimer: The information contained in this section may have been updated after the patient was seen, as this information can be updated by other users. Medical History Intolerance of continuous positive airway pressure (CPAP) ventilation Sleep apnea Osteoarthritis Hyperlipidemia BMI 37.0-37.9, adult Type 2 diabetes mellitus without complications Hypertension Surgical History History of hernia repair History of tonsillectomy Family History (Updated 07/18/24 @ 16:03 by Laine Gracia RN) Other COPD (chronic obstructive pulmonary disease) Diabetes Hyperlipidemia Hypertension Social History (Updated 07/18/24 @ 16:04 by Laine Gracia RN) Smoking Status: Current every day smoker alcohol intake: current alcohol intake frequency: a few times a month substance use type: denies use current occupational status: retired household members: spouse, family and children housing: house current occupational exposures/hazards: No caffeine: Yes Other Medical History Have you received the Flu Vaccine for this season: No Have you received the Pneumonia Vaccine: No Meds Home Medications and Allergies Home Medications ?Medication ?Instructions ?Recorded ?Confirmed ?Type aspirin 325 mg tablet,delayed 325 mg PO DAILY 02/12/24 07/18/24 History release apixaban 5 mg tablet (Eliquis) 5 mg PO BID 05/14/24 07/18/24 History losartan 100 mg tablet 100 mg PO DAILY 07/18/24 07/18/24 History spironolactone 25 mg tablet 25 mg PO DAILY 07/18/24 07/18/24 History diltiazem HCl 120 mg 120 mg PO DAILY 07/19/24 07/19/24 History capsule,extended release 24 hr levofloxacin 750 mg tablet 750 mg PO 1100 4 days #4 tabs 07/19/24 Rx rosuvastatin 5 mg tablet 5 mg PO DAILY 07/19/24 07/19/24 History New Prescriptions to Start Prescriptions: levofloxacin Smooth [place] Allergies Allergy/AdvReac Type Severity Reaction Status Date / Time ZAIN Inhibitors AdvReac Mild Cough Verified 06/04/24 08:40 Exam Data for Last 24 hours Vital signs and Labs for Last 24 Hours: Temp Pulse Resp BP Pulse Ox O2 Del Method 98.3 F 85 12 107/77 L 97 Room Air 07/18/24 16:21 07/18/24 16:21 07/18/24 16:21 07/18/24 16:21 07/18/24 16:21 07/18/24 16:21 Laboratory Results - last 24 hr 07/18/24 12:55: WBC 12.6 H, RBC 5.13, Hgb 17.1, Hct 48.5, MCV 94.6 H, MCH 33.3 H , MCHC 35.2, RDW 13.9, Plt Count 305, MPV 7.2 L, Neut % (Auto) 69.4, Lymph % (Auto) 20.6, [place] % (Auto) 6.2, Eos % (Auto) 2.6, Baso % (Auto) 1.2, Neut # (Auto) 8.8 H, Lymph # (Auto) 2.6, [place] # (Auto) 0.8, Eos # (Auto) 0.3, Baso # (Auto) 0.2, PT 11.0, INR 0.98, APTT 31.3 H, D-Dimer 0.56 H, Sodium 137, Potassium 4.5, Chloride 101, Carbon Dioxide 23, Anion Gap 17.5 H, BUN 21 H, Creatinine 1.40 H, Estimated Creat Clear 59, Estimated GFR 50 L, Est GFR ( Amer) 61, Glucose 222 H, Hemoglobin A1c 9.7 H, Lactate 4.6 H, Calcium 9.5, Magnesium 1.8, Total Bilirubin 0.7, AST 31, ALT 32, Alkaline Phosphatase 116, Troponin I 0.02, NT-Pro-B Natriuret Pep 187 H, Total Protein 7.3, Albumin 4.3, Globulin 3.0, Albumin/Globulin Ratio 1.4, Triglycerides 433 H, Cholesterol 215 H, LDL Cholesterol Direct 116.07, HDL Cholesterol 30 L, Cholesterol/HDL Ratio 7.2 H, Lipase 129 07/18/24 13:01: SARS-CoV-2 (PCR) Detected A, Influenza A Untype (PCR) Not detected, Influenza Type B (PCR) Not detected 07/18/24 13:05: VBG pH 7.38, VBG pCO2 38.5, VBG pO2 41.8 H, VBG HCO3 22.5 L, VBG Total CO2 23.7, VBG O2 Saturation 78.8 H, VBG Base Excess -2.6 L, VBG Lactic Acid 5.2 H 07/18/24 15:45: Troponin I 0.02 I & O for Last 24 hours: Intake & Output 07/15/24 07/16/24 07/17/24 07/18/24 23:59 23:59 23:59 23:59 Weight 152.861 kg Constitutional Constitutional: no acute distress and obese *Routine HEENT Exam Head: Present normocephalic Eye: Present EOMI and PERRL ENT: Present mucous membranes moist *Routine Neck Exam Neck: Present supple; Absent lymphadenopathy *Routine Respiratory Exam Respiratory: Present CTA bilaterally *Routine Cardiovascular Exam Cardiovascular: Present RRR *Routine Abdominal Exam Abdominal: Present soft and normoactive bowel sounds; Absent tenderness *Routine Rectal Exam Rectal:: deferred *Routine Genitalia Exam Genitalia:: deferred *Routine Extremities Exam Extremities: Absent cyanosis, clubbing or edema *Routine Skin Exam Skin: Present warm; Absent rash *Routine Neurological Exam Neurological: Present alert and oriented X3 Assessment and Plan *Assessment and plan (1) Shortness of breath: Status: Acute Category: Medical Code(s): R06.02 - Shortness of breath (2) Atrial flutter: Status: Acute Category: Medical Code(s): I48.92 - Unspecified atrial flutter Plan Luis Hernandez is a 68-year-old male with a medical history significant for chronic tobacco smoker, A-flutter on Eliquis, hypertension, hyperlipidemia, type 2 diabetes, who presents with an episode of shortness of breath, back pain, diaphoresis. He states he was getting turkey this morning when he felt sudden onset shortness of breath that self resolved over the few minutes. Shortly after, he began experiencing pain over his shoulder blades and neck pain that lasted about an hour. He also had nausea/diaphoresis during this period. He presented to the ED with the symptoms after taking aspirin 324 mg. Of note, patient states he has been having increased productive cough for more than a month. He has been treated with 2 rounds of antibiotics with some resolution over the past few days. He also states he took Lasix 80 mg at home with significant diuresis, which he usually only takes as needed. Vital signs initially show sinus tachycardia 112, soft pressures 89/57 which have both resolved. Initial EKG did show ST changes including mild depression in anterior lead as well as new right bundle gerson block compared to previous EKG about a year ago. Patient denies chest pain. Tested positive for COVID-19. Other workup significant for WBC 12.6, AGAP 17.5, creatinine 1.4 baseline (0.70), BNP 187. Troponins negative Dr. Fuentes was contacted and recommended further workup for ACS like symptoms. Case discussed with ED provider and decision was made to admit patient for further evaluation of shortness of breath, and potential ACS/unstable angina. #Shortness of breath, resolved #COVID-19 bronchitis ? Patient experienced transient shortness of breath, diaphoresis that has self resolved. ? Tested positive for COVID-19. ? CTA did not show acute pulmonary findings. ? Has had productive cough for over a month and has been treated with 2 rounds of oral antibiotics outpatient. No infiltrates on CTA chest. - Continue to monitor. Outside window for Paxlovid. #Possible unstable angina - New RBBB on EKG. Trops negative. - Follow-up ECHO in morning #Aflutter - Currently rate controlled. - Resume home Eliquis $Hypertension - Resume home meds once reconciled #Type 2 diabetes - MDSSI, ACHS glucose chescks
--- NOTE | 2024-07-18 16:55 | PC.NURSE ---
A&OX4. TOLERATING RA WELL. HAS INTERMITTENT NON-PRODUCTIVE COUGH. INDEPENDENT IN ROOM. PATIENT STATES THAT HE FEELS MUCH BETTER THAN HE DID THIS MORNING. NO NEEDS OR C/O SINCE ARRIVAL TO FLOOR. IN COVID PRECAUTIONS. VSS. PER ER--PATIENT DID NOT NEED FULL FLUID SEPSIS BOLUS.
[2024-07-18 17:14] LABS: Reflex Lactic Add Lactic Reflex
[2024-07-18 17:47] LABS: Lactic Acid Follow Up (RFLX 1) 2.2 mmol/L (0.7-2.1)
[2024-07-18 19:32] LABS: Reflex Lactic (2 hrs) Add Lactic Reflex
[2024-07-18 19:55] LABS: Troponin I 0.02 ng/ml (0.00-0.034)
[2024-07-18 20:02] LABS: Microscopic, Urine URINE MICROSCOPIC (MICROSCOPIC)
[2024-07-18 20:05] LABS: Appearance,Urine CLEAR (Clear); Bilirubin,Urine Negative (Negative); Blood, Urine Negative (Negative); Color,Urine YELLOW (Yellow); Glucose,Urine (UA) Negative (Negative); Ketones,Urine Negative (Negative); Leukocyte Esterase,Urine Negative (Negative); Nitrate,Urine Negative (Negative); Protein,Urine Negative (Negative); Urobilinogen,Urine 0.2 EU/dl (0.2)
[2024-07-18 20:09] LABS: POC Glucose,Bedside 227 (70-110)
[2024-07-18] MEDS: APIXABAN 5MG TABLET 5 MG PO (20:14)
[2024-07-18] MEDS: humaLOG 100 UNITS/ML 10ML VIAL (SSI) SUBCUT (20:14)
[2024-07-18 20:24] LABS: Bacteria,Urine 2+ /lpf; Calcium Oxalate Crystals,Urine 1+ /lpf
[2024-07-19] VITALS: BP 139/94; PULSE 80; PULSE 84; RESP 18; TEMP 36.5; O2SAT 97
[2024-07-19 03:59] VITALS: BP 118/61; PULSE 82; RESP 16; TEMP 36.5; O2SAT 95; BMI 43.2
[2024-07-19 04:00] VITALS: PULSE 70
[2024-07-19] MEDS: humaLOG 100 UNITS/ML 10ML VIAL (SSI) SUBCUT ×2 (05:59→10:12)
[2024-07-19 06:00] LABS: POC Glucose,Bedside 160 (70-110)
[2024-07-19 06:25] LABS: Basophils # 0.1 K/mm3 (0-0.2); Eosinophils # 0.4 K/mm3 (0.0-0.4); Eosinophils % 3.7 % (0.1-12.0); Hematocrit 45.2 % (42.0-52.0); Lymphocytes # 2.2 K/mm3 (0.7-4.5); Lymphocytes % 22.3 % (10-50); Mean Corpuscular HGB Conc 33.7 g/dL (31.8-35.4); Mean Corpuscular Hemoglobin 33.1 pg (27.0-31.2); Mean Corpuscular Volume 98.2 fl (80-94); Monocytes # 0.7 K/mm3 (0.1-1.0); Neutrophils # 6.5 K/mm3 (1.8-7.8); Neutrophils % 65.9 % (37.0-80.0); Platelet Count 248 K/mm3 (142-424); Red Cell Distribution Width 13.7 % (11.5-17.5); White Blood Count 9.9 K/mm3 (4.8-10.8)
[2024-07-19 06:30] LABS: Hemoglobin 15.6 g/dL (14.1-18.0)
[2024-07-19 06:34] LABS: Alanine Aminotransferase 24 U/L (12-78); Albumin Level 3.9 g/dl (3.5-5.0); Albumin/Globulin Ratio 1.6 (1.1-1.8); Alkaline Phosphatase 99 U/L (38-126); Anion Gap 12.4 mEq/L (5-15); Aspartate Amino Transferase 29 U/L (17-59); Bilirubin,Total 0.9 mg/dl (0.2-1.3); Blood Urea Nitrogen 19 mg/dl (9-20); Calcium 8.8 mg/dl (8.4-10.2); Carbon Dioxide 27 mmol/L (22.0-30.0); Chloride 102 mmol/L (98-107); Creatinine Clearance Estimated 82 mL/min (50-200); Estimated Glomerular Filt Rate 96 ml/min (>60); GFR (African American) 116 ML/MIN (>60); Globulin 2.5 g/dL (1.3-3.2); Glucose 157 mg/dl (74-100); Magnesium 1.8 mg/dl (1.6-2.3); Potassium 4.4 mmoL/L (3.5-5.1); Sodium 137 mmol/L (136-145); Total Protein,Serum 6.4 g/dl (6.3-8.2)
--- NOTE | 2024-07-19 07:44 | CA_ITS ---
APPROVED REPORT EXAM: Comprehensive 2D, Doppler, and color-flow Echocardiogram Medical Services Assistant: Margaret Kraft RVT Ht: 6 ft 2 in Wt: 337lbs BSA: 2.71 BP: 107/77 mmHg Indications: ANGINA,SOA,COVID +,AFLUTTER,DM,HTN,HLD,SMOKER 2D Dimensions IVSd 2.21 cm M: 0.6-1.2 LVEF (Visual) 52.10 % PWd 1.37 cm M: 0.6 - 1.2 LA Volume 58.00 mL LVDd 4.59 cm M: 4.2 - 5.9 LA Volume Index 21.32 mL/m2 (M/F) 16-34 LVDs 3.37 cm M: 2.5 - 4.0 M-Mode Dimensions LA Diam 4.36 cm (1.9-4.0) TAPSE 1.88 (<1.7) LV Diastology E Decel Time 150 (160-240 msec) E/A Ratio 0.7 Aortic Valve AO Peak GR. 6.10 mmHg Mitral Valve MV E Max Demetrio. 70.0 (40-130 cm/s) MV A Velocity 95.0 (40-130 cm/s) E/A Ratio 0.73 MV PHT 44.0 ms Pulmonary Valve PV Peak Velocity 91.0 (50-150 cm/s) Tricuspid Valve TR P. Velocity 159.00 cm/s RAP Estimate 10.00 mmHg RVSP 20.10 mmHg Left Ventricle The left ventricle is normal size. The left ventricular systolic function is normal. The left ventricular ejection fraction is within the normal range. There is increased LV wall thickness. The septum is asynchronous. Diastolic function is indeterminate. LVEF is 55%. Right Ventricle Right ventricle is mildly dilated. Right ventricle is mildly to moderately hypokinetic. Atria The left atrium is mildly dilated. The right atrium is mildly dilated. There is no Doppler evidence of interatrial shunt. Aortic Valve The aortic valve is mildly thickened. There is no aortic valvular stenosis. Mild aortic regurgitation. Mitral Valve The mitral valve leaflets are mildly thickened. No evidence of mitral valve stenosis. Mild mitral regurgitation. Tricuspid Valve The tricuspid valve leaflets are thin and pliable. Trace tricuspid regurgitation. There is insufficient TR jet to estimate RVSP. Pulmonic Valve The pulmonary valve is normal in structure. Trace pulmonic regurgitation. Great Vessels The aortic root is normal in size. The ascending aorta is borderline dilated, measuring 3.7 cm in diameter. IVC is normal in size and collapses >50% with inspiration. Pericardium There is no pericardial effusion. An epicardial fat pad is noted. Other Information Study Quality: Fair Conclusion Normal LV systolic function. Asynchronous septum. Mildly dilated RV with mild to moderate reduction in RV function. Biatrial dilation. Mild AI, mild MR. Borderline dilated ascending aorta, measuring 3.7 cm in diameter. Electronically signed by : Roseann Velez MD 07/19/2024 12:29:32
[2024-07-19 07:51] VITALS: BP 132/68; PULSE 87; RESP 18; TEMP 36.8; O2SAT 95
[2024-07-19 08:01] VITALS: PULSE 95
--- NOTE | 2024-07-19 08:15 | HMH.PHAINT1 ---
Pharmacy Intervention Comments: MEDICATION RECONCILIATION COMPLETED ON PATIENT USING EXTERNAL FILL HISTORY FROM PHARMACY. -STEVEN CONLEY, MAKAYLAD
[2024-07-19] MEDS: levoFLOXacin 750 MG TABLET PO (10:09)
[2024-07-19] MEDS: APIXABAN 5MG TABLET 5 MG PO (10:09)
[2024-07-19 10:21] LABS: POC Glucose,Bedside 250 (70-110)
[2024-07-19 12:00] VITALS: BP 124/76; PULSE 85; RESP 18; TEMP 36.8; O2SAT 95
--- NOTE | 2024-07-19 13:14 | P.DS_ITS ---
General Admission date:: 07/18/24 HPI HPI HPI: Luis Hernandez is a 68-year-old male with a medical history significant for chronic tobacco smoker, A-flutter on Eliquis, hypertension, hyperlipidemia, type 2 diabetes, who presents with an episode of shortness of breath, back pain, diaphoresis. He states he was getting turkey this morning when he felt sudden onset shortness of breath that self resolved over the few minutes. Shortly after, he began experiencing pain over his shoulder blades and neck pain that lasted about an hour. He also had nausea/diaphoresis during this period. He presented to the ED with the symptoms after taking aspirin 324 mg. Of note, patient states he has been having increased productive cough for more than a month. He has been treated with 2 rounds of antibiotics with some resolution over the past few days. He also states he took Lasix 80 mg at home with significant diuresis, which he usually only takes as needed. Vital signs initially show sinus tachycardia 112, soft pressures 89/57 which have both resolved. Initial EKG did show ST changes including mild depression in anterior lead as well as new right bundle gerson block compared to previous EKG about a year ago. Patient denies chest pain. Tested positive for COVID-19. Other workup significant for WBC 12.6, AGAP 17.5, creatinine 1.4 baseline (0.70), BNP 187. Troponins negative Dr. Fuentes was contacted and recommended further workup for ACS like symptoms. Case discussed with ED provider and decision was made to admit patient for further evaluation of shortness of breath, and potential ACS/unstable angina. Hospital Course Hospital Course Hospital Course: Stress test at [facility] was relatively unremarkable. ? ECHO had asynchronous septum consistent with RBBB. Luis Hernandez is a 68-year-old male with a medical history significant for chronic tobacco smoker, A-flutter on Eliquis, hypertension, hyperlipidemia, type 2 diabetes, who presents with an episode of shortness of breath, back pain, diaphoresis. He states he was getting turkey this morning when he felt sudden onset shortness of breath that self resolved over the few minutes. Shortly after, he began experiencing pain over his shoulder blades and neck pain that lasted about an hour. He also had nausea/diaphoresis during this period. He presented to the ED with the symptoms after taking aspirin 324 mg. Of note, patient states he has been having increased productive cough for more than a month. He has been treated with 2 rounds of antibiotics with some resolution over the past few days. He also states he took Lasix 80 mg at home with significant diuresis, which he usually only takes as needed. Vital signs initially show sinus tachycardia 112, soft pressures 89/57 which have both resolved. Initial EKG did show ST changes including mild depression in anterior lead as well as new right bundle gerson block compared to previous EKG about a year ago. Patient denies chest pain. Tested positive for COVID-19. Other workup significant for WBC 12.6, AGAP 17.5, creatinine 1.4 baseline (0.70), BNP 187. Troponins negative Dr. Fuentes was contacted and recommended further workup for ACS like symptoms. Case discussed with ED provider and decision was made to admit patient for further evaluation of shortness of breath, and potential ACS/unstable angina. #Shortness of breath, resolved #COVID-19 bronchitis ? Patient experienced transient shortness of breath, diaphoresis that has self resolved. ? Tested positive for COVID-19. ? CTA did not show acute pulmonary findings. ? Has had productive cough for over a month and has been treated with 2 rounds of oral antibiotics outpatient. No infiltrates on CTA chest. - Remained stable overnight, no further episodes. Medically stable for discharge. - Discharged with Levaquin given persistent yellow productive cough. #Possible unstable angina - New RBBB on EKG. Trops negative. - ECHO showed normal biventricular function, though did show asynchrnous septum. CTA chest did not show PE. - Will follow-up with cardiology within 1 week for further evaluation. Currently stable, no arrythmias. #Aflutter - Currently rate controlled. - Resume home Eliquis $Hypertension - Resume home regimen. #Type 2 diabetes - MDSSI, ACHS glucose chescks - Resume home regimen Exam Data for Last 24 hours Vital signs and Labs for Last 24 Hours: Temp Pulse Resp BP Pulse Ox O2 Del Method 98.2 F 85 18 124/76 95 Room Air 07/19/24 12:00 07/19/24 12:00 07/19/24 12:00 07/19/24 12:00 07/19/24 12:00 07/19/24 12:00 Laboratory Results - last 24 hr 07/18/24 12:55: WBC 12.6 H, RBC 5.13, Hgb 17.1, Hct 48.5, MCV 94.6 H, MCH 33.3 H , MCHC 35.2, RDW 13.9, Plt Count 305, MPV 7.2 L, Neut % (Auto) 69.4, Lymph % (Auto) 20.6, Trinity % (Auto) 6.2, Eos % (Auto) 2.6, Baso % (Auto) 1.2, Neut # (Auto) 8.8 H, Lymph # (Auto) 2.6, Trinity # (Auto) 0.8, Eos # (Auto) 0.3, Baso # (Auto) 0.2, PT 11.0, INR 0.98, APTT 31.3 H, D-Dimer 0.56 H, Sodium 137, Potassium 4.5, Chloride 101, Carbon Dioxide 23, Anion Gap 17.5 H, BUN 21 H, Creatinine 1.40 H, Estimated Creat Clear 59, Estimated GFR 50 L, Est GFR ( Amer) 61, Glucose 222 H, Hemoglobin A1c 9.7 H, Lactate 4.6 H, Calcium 9.5, Magnesium 1.8, Total Bilirubin 0.7, AST 31, ALT 32, Alkaline Phosphatase 116, Troponin I 0.02, NT-Pro-B Natriuret Pep 187 H, Total Protein 7.3, Albumin 4.3, Globulin 3.0, Albumin/Globulin Ratio 1.4, Triglycerides 433 H, Cholesterol 215 H, LDL Cholesterol Direct 116.07, HDL Cholesterol 30 L, Cholesterol/HDL Ratio 7.2 H, Lipase 129 07/18/24 13:01: SARS-CoV-2 (PCR) Detected A, Influenza A Untype (PCR) Not detected, Influenza Type B (PCR) Not detected 07/18/24 13:05: VBG pH 7.38, VBG pCO2 38.5, VBG pO2 41.8 H, VBG HCO3 22.5 L, VBG Total CO2 23.7, VBG O2 Saturation 78.8 H, VBG Base Excess -2.6 L, VBG Lactic Acid 5.2 H 07/18/24 15:45: Troponin I 0.02 07/18/24 17:28: Lactate 2.2 H 07/18/24 19:00: Troponin I 0.02 07/18/24 19:53: POC Glucose 227 H 07/18/24 19:55: Urine Color Yellow, Urine Appearance Clear, Urine pH 6.0, Ur Specific [place] 1.020, Urine Protein Negative, Urine Glucose (UA) Negative, Urine Ketones Negative, Urine Blood Negative, Urine Nitrate Negative, Urine Bilirubin Negative, Urine Urobilinogen 0.2, Ur Leukocyte Esterase Negative, Urine RBC 3-5, Urine WBC 3-5, Ur Squamous Epith Cells 5-10, Calcium Oxalate Crystal 1+, Urine Bacteria 2+ 07/18/24 20:02: Lactate 2.0 07/19/24 05:48: POC Glucose 160 H 07/19/24 06:08: WBC 9.9, RBC 4.60, Hgb 15.6, Hct 45.2, MCV 98.2 H, MCH 33.1 H, MCHC 33.7, RDW 13.7, Plt Count 248, MPV 7.0 L, Neut % (Auto) 65.9, Lymph % (Auto) 22.3, Trinity % (Auto) 7.0, Eos % (Auto) 3.7, Baso % (Auto) 1.0, Neut # (Auto) 6.5, Lymph # (Auto) 2.2, Trinity # (Auto) 0.7, Eos # (Auto) 0.4, Baso # (Auto) 0.1, Sodium 137, Potassium 4.4, Chloride 102, Carbon Dioxide 27, Anion Gap 12.4, BUN 19, Creatinine 0.80 D, Estimated Creat Clear 82, Estimated GFR 96, Est GFR ( Amer) 116 D, Glucose 157 H D, Calcium 8.8, Magnesium 1.8, Total Bilirubin 0.9, AST 29, ALT 24, Alkaline Phosphatase 99, Total Protein 6.4, Albumin 3.9, Globulin 2.5, Albumin/Globulin Ratio 1.6 07/19/24 10:11: POC Glucose 250 H I & O for Last 24 hours: Intake & Output 07/16/24 07/17/24 07/18/24 07/19/24 23:59 23:59 23:59 23:59 Intake Total 400 / 640 1260 / 1260 Output Total 150 / 150 0 / 0 Balance 250 / 490 1260 / 1260 Weight 152.861 kg 152.861 kg Constitutional Constitutional: no acute distress and obese *Routine HEENT Exam Head: Present normocephalic Eye: Present EOMI and PERRL ENT: Present mucous membranes moist *Routine Neck Exam Neck: Present supple; Absent lymphadenopathy *Routine Respiratory Exam Respiratory: Present CTA bilaterally *Routine Cardiovascular Exam Cardiovascular: Present RRR *Routine Abdominal Exam Abdominal: Present soft and normoactive bowel sounds; Absent tenderness *Routine Extremities Exam Extremities: Absent cyanosis, clubbing or edema *Routine Skin Exam Skin: Present warm; Absent rash *Routine Neurological Exam Neurological: Present alert and oriented X3 Results Data Completed and Pending Labs on day of discharge: Labs from last 24 hours 07/19/24 07/19/24 07/19/24 10:11 06:08 05:48 WBC 9.9 RBC 4.60 Hgb 15.6 Hct 45.2 MCV 98.2 H MCH 33.1 H MCHC 33.7 RDW 13.7 Plt Count 248 MPV 7.0 L Neut % (Auto) 65.9 Lymph % (Auto) 22.3 Trinity % (Auto) 7.0 Eos % (Auto) 3.7 Baso % (Auto) 1.0 Neut # (Auto) 6.5 Lymph # (Auto) 2.2 Trinity # (Auto) 0.7 Eos # (Auto) 0.4 Baso # (Auto) 0.1 PT INR APTT D-Dimer VBG pH VBG pCO2 VBG pO2 VBG HCO3 VBG Total CO2 VBG O2 Saturation VBG Base Excess VBG Lactic Acid Sodium 137 Potassium 4.4 Chloride 102 Carbon Dioxide 27 Anion Gap 12.4 BUN 19 Creatinine 0.80 D Estimated Creat Clear 82 Estimated GFR 96 Est GFR ( Amer) 116 D Glucose 157 H D POC Glucose 250 H 160 H Hemoglobin A1c Lactate Calcium 8.8 Magnesium 1.8 Total Bilirubin 0.9 AST 29 ALT 24 Alkaline Phosphatase 99 Troponin I NT-Pro-B Natriuret Pep Total Protein 6.4 Albumin 3.9 Globulin 2.5 Albumin/Globulin Ratio 1.6 Triglycerides Cholesterol LDL Cholesterol Direct HDL Cholesterol Cholesterol/HDL Ratio Lipase Urine Color Urine Appearance Urine pH Ur Specific [place] Urine Protein Urine Glucose (UA) Urine Ketones Urine Blood Urine Nitrate Urine Bilirubin Urine Urobilinogen Ur Leukocyte Esterase Urine RBC Urine WBC Ur Squamous Epith Cells Calcium Oxalate Crystal Urine Bacteria SARS-CoV-2 (PCR) Influenza A Untype (PCR) Influenza Type B (PCR) 07/18/24 07/18/24 07/18/24 20:02 19:55 19:53 WBC RBC Hgb Hct MCV MCH MCHC RDW Plt Count MPV Neut % (Auto) Lymph % (Auto) Trinity % (Auto) Eos % (Auto) Baso % (Auto) Neut # (Auto) Lymph # (Auto) Trinity # (Auto) Eos # (Auto) Baso # (Auto) PT INR APTT D-Dimer VBG pH VBG pCO2 VBG pO2 VBG HCO3 VBG Total CO2 VBG O2 Saturation VBG Base Excess VBG Lactic Acid Sodium Potassium Chloride Carbon Dioxide Anion Gap BUN Creatinine Estimated Creat Clear Estimated GFR Est GFR ( Amer) Glucose POC Glucose 227 H Hemoglobin A1c Lactate 2.0 Calcium Magnesium Total Bilirubin AST ALT Alkaline Phosphatase Troponin I NT-Pro-B Natriuret Pep Total Protein Albumin Globulin Albumin/Globulin Ratio Triglycerides Cholesterol LDL Cholesterol Direct HDL Cholesterol Cholesterol/HDL Ratio Lipase Urine Color Yellow Urine Appearance Clear Urine pH 6.0 Ur Specific [place] 1.020 Urine Protein Negative Urine Glucose (UA) Negative Urine Ketones Negative Urine Blood Negative Urine Nitrate Negative Urine Bilirubin Negative Urine Urobilinogen 0.2 Ur Leukocyte Esterase Negative Urine RBC 3-5 Urine WBC 3-5 Ur Squamous Epith Cells 5-10 Calcium Oxalate Crystal 1+ Urine Bacteria 2+ SARS-CoV-2 (PCR) Influenza A Untype (PCR) Influenza Type B (PCR) 07/18/24 07/18/24 07/18/24 19:00 17:28 15:45 WBC RBC Hgb Hct MCV MCH MCHC RDW Plt Count MPV Neut % (Auto) Lymph % (Auto) Trinity % (Auto) Eos % (Auto) Baso % (Auto) Neut # (Auto) Lymph # (Auto) Trinity # (Auto) Eos # (Auto) Baso # (Auto) PT INR APTT D-Dimer VBG pH VBG pCO2 VBG pO2 VBG HCO3 VBG Total CO2 VBG O2 Saturation VBG Base Excess VBG Lactic Acid Sodium Potassium Chloride Carbon Dioxide Anion Gap BUN Creatinine Estimated Creat Clear Estimated GFR Est GFR ( Amer) Glucose POC Glucose Hemoglobin A1c Lactate 2.2 H Calcium Magnesium Total Bilirubin AST ALT Alkaline Phosphatase Troponin I 0.02 0.02 NT-Pro-B Natriuret Pep Total Protein Albumin Globulin Albumin/Globulin Ratio Triglycerides Cholesterol LDL Cholesterol Direct HDL Cholesterol Cholesterol/HDL Ratio Lipase Urine Color Urine Appearance Urine pH Ur Specific [place] Urine Protein Urine Glucose (UA) Urine Ketones Urine Blood Urine Nitrate Urine Bilirubin Urine Urobilinogen Ur Leukocyte Esterase Urine RBC Urine WBC Ur Squamous Epith Cells Calcium Oxalate Crystal Urine Bacteria SARS-CoV-2 (PCR) Influenza A Untype (PCR) Influenza Type B (PCR) 07/18/24 07/18/24 07/18/24 13:05 13:01 12:55 WBC 12.6 H RBC 5.13 Hgb 17.1 Hct 48.5 MCV 94.6 H MCH 33.3 H MCHC 35.2 RDW 13.9 Plt Count 305 MPV 7.2 L Neut % (Auto) 69.4 Lymph % (Auto) 20.6 Trinity % (Auto) 6.2 Eos % (Auto) 2.6 Baso % (Auto) 1.2 Neut # (Auto) 8.8 H Lymph # (Auto) 2.6 Trinity # (Auto) 0.8 Eos # (Auto) 0.3 Baso # (Auto) 0.2 PT 11.0 INR 0.98 APTT 31.3 H D-Dimer 0.56 H VBG pH 7.38 VBG pCO2 38.5 VBG pO2 41.8 H VBG HCO3 22.5 L VBG Total CO2 23.7 VBG O2 Saturation 78.8 H VBG Base Excess -2.6 L VBG Lactic Acid 5.2 H Sodium 137 Potassium 4.5 Chloride 101 Carbon Dioxide 23 Anion Gap 17.5 H BUN 21 H Creatinine 1.40 H Estimated Creat Clear 59 Estimated GFR 50 L Est GFR ( Amer) 61 Glucose 222 H POC Glucose Hemoglobin A1c 9.7 H Lactate 4.6 H Calcium 9.5 Magnesium 1.8 Total Bilirubin 0.7 AST 31 ALT 32 Alkaline Phosphatase 116 Troponin I 0.02 NT-Pro-B Natriuret Pep 187 H Total Protein 7.3 Albumin 4.3 Globulin 3.0 Albumin/Globulin Ratio 1.4 Triglycerides 433 H Cholesterol 215 H LDL Cholesterol Direct 116.07 HDL Cholesterol 30 L Cholesterol/HDL Ratio 7.2 H Lipase 129 Urine Color Urine Appearance Urine pH Ur Specific [place] Urine Protein Urine Glucose (UA) Urine Ketones Urine Blood Urine Nitrate Urine Bilirubin Urine Urobilinogen Ur Leukocyte Esterase Urine RBC Urine WBC Ur Squamous Epith Cells Calcium Oxalate Crystal Urine Bacteria SARS-CoV-2 (PCR) Detected A Influenza A Untype (PCR) Not detected Influenza Type B (PCR) Not detected Meds Home Medications and Allergies Home Medications ?Medication ?Instructions ?Recorded ?Confirmed ?Type aspirin 325 mg tablet,delayed 325 mg PO DAILY 02/12/24 07/18/24 History release apixaban 5 mg tablet (Eliquis) 5 mg PO BID 05/14/24 07/18/24 History losartan 100 mg tablet 100 mg PO DAILY 07/18/24 07/18/24 History spironolactone 25 mg tablet 25 mg PO DAILY 07/18/24 07/18/24 History diltiazem HCl 120 mg 120 mg PO DAILY 07/19/24 07/19/24 History capsule,extended release 24 hr levofloxacin 750 mg tablet 750 mg PO 1100 4 days #4 tabs 07/19/24 Rx rosuvastatin 5 mg tablet 5 mg PO DAILY 07/19/24 07/19/24 History New Prescriptions to Start Prescriptions: levofloxacin Smooth Robles Allergies Allergy/AdvReac Type Severity Reaction Status Date / Time ZAIN Inhibitors AdvReac Mild Cough Verified 06/04/24 08:40 Discharge Plan Disposition Patient Disposition: Home, Self-Care Condition: Fair Follow up Plan Prescriptions/Medication Reconciliation: New levofloxacin 750 mg Tablet 750 mg PO 1100 4 Days Qty: 4 0RF Continued Eliquis 5 mg tablet 5 mg PO BID aspirin 325 mg tablet,delayed release (DR/EC) 325 mg PO DAILY spironolactone 25 mg tablet 25 mg PO DAILY diltiazem HCl 120 mg capsule,extended release 24hr 120 mg PO DAILY Patient Comments: TAKE ONE CAPSULE BY MOUTH EVERY DAY rosuvastatin 5 mg tablet 5 mg PO DAILY Patient Comments: TAKE ONE TABLET BY MOUTH DAILY Held losartan 100 mg tablet 100 mg PO DAILY Hold Instructions: Resume on 08/02/24. Your blood pressures in the hospital have been stable without this medication. 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 Keep a blood pressure log. Problem Reconciliation Problems Reviewed?: Yes Patient Discharge Instructions Patient Instructions: DI for Angina, COVID-19, How to Care for Someone with COVID-19 Print Language: [place]ian Providers Primary Care Provider: Jem Narvaez Admit Provider: Smooth Robles Attending Provider: Smooth Robles
--- NOTE | 2024-07-23 11:26 | SW/DCPLANNER ---
Phoned patient 2x and ea time no answer and left message and call back number each time. Keila Pulido
== END 2024-07-19 14:10 | disposition home or self-care (01) ==
LOC: ER 12:56 → 2ND 15:16
PROVIDERS: Admitting Provider Student in an Organized Health Care Education/Training Program; Emergency Provider Emergency Medicine; PCP Internal Medicine; Visit Provider Student in an Organized Health Care Education/Training Program
DX: I20.0 Unstable angina (principal); R06.02 Shortness of breath; I48.92 Unspecified atrial flutter; Z79.01 Long term (current) use of anticoagulants; U07.1 COVID-19; I10 Essential (primary) hypertension; E78.5 Hyperlipidemia, unspecified; E11.9 Type 2 diabetes mellitus without complications; F17.210 Nicotine dependence, cigarettes, uncomplicated; Z79.899 Other long term (current) drug therapy
CPT/HCPCS: 36415; 71275; 74174; 80053; 80061; 81001; 82803; 82962; 83036; 83605; 83690; 83735; 83880; 84484; 85025; 85378; 85610; 85730; 87040; 87086; 87636; 93005; 93306; 99285; G0378; J0696; J7120; Q9967

== ENCOUNTER 2024-11-12 12:23 | Observation (INO) | payer MEDICARE, SELFPAY ==
[2024-11-12] VITALS (16 sets, daily range): BP systolic 87–156; BP diastolic 52–100; PULSE 50–94; RESP 12–20; TEMP 36.5–36.8; O2SAT 95–98; BMI 44.9
--- NOTE | 2024-11-12 12:24 | ECG_ITS ---
APPROVED REPORT Exam: Resting ECG HR:88 bpm ECG Measurements Heart Rate 88 AXES QRSd 125 QRS -75 QT 351 T 88 QTc 396 Conclusion A-fib Right murmurs block ST depressions in 1 and aVL with no reciprocal elevations Electronically signed by : LIBRADO SAUER, 11/13/2024 07:28:00
--- NOTE | 2024-11-12 12:42 | XR_ITS ---
FINAL REPORT CLINICAL HISTORY: Shortness of air/chest pain, recent stetns COMPARISON: None FINDINGS: A portable view of the chest is obtained. Cardiac and mediastinal silhouettes are normal. The lungs are clear. There is no pleural effusion or pneumothorax. IMPRESSION: No acute process on this portable exam. Reviewed, Interpreted and Dictated by Caren Sin MD Transcribed by Patricia Schmitt Authenticated and . [facility]
--- NOTE | 2024-11-12 12:43 | [facility].EDCP ---
Discharge Plan Disposition Patient Disposition: Admitted Condition: Fair Clinical Impressions Clinical Impression: Stable angina, Hx of heart artery stent, CAD (coronary artery disease) Discharge ED Provider: Kvng Balderrama HPI <RUBY Tee - Last Filed: 11/12/24 17:01> General Chief Complaint: Chest Pain Stated Complaint: chest pain Time Seen by Provider: 11/12/24 12:42 Mode of Arrival: Ambulatory Source of Information: Patient Description of Symptoms (Recalled from ER Triage Doc. by RN): c/o chest pain that goes down his left arm, report that it has been since his heart cath one week ago but became more painful this morning. Reports soa with ambulation, gets better with rest. PT got 2 stents in LAD with heart cath. History of Present Illness HPI narrative: 69-year-old male presents to the emergency department with a 1 week history of worsening exertional chest pain, patient was recently seen by grade tamper at [facility] last week, had 2 stents placed in his LAD, tolerated procedure well, this was done right radial access approach. He has been on dual antiplatelet therapy of Plavix and aspirin and been taking the medication as prescribed, he endorses chest pain that is only present with exertion, even mild exertion causes chest pain or shortness of breath, he describes her chest pain as a left-sided chest pain that radiates down the left upper extremity with numbness tingling, nausea with these episodes. However at rest he is 0 out of 10 chest pain, complaining of 0 out of 10 chest pain right now. Patient denies any fever chills, denies any cough congestion, sore throat recent illness, denies any urinary type symptomatology, denies any abdominal pain, vomiting, no nausea currently, no constipation no diarrhea, patient is a former smoker, denies any alcohol or drug use, other past medical history consistent with morbid obesity, type 2 diabetes, atrial fibrillation, on anticoagulation therapy with Eliquis, chronic venous insufficiency, COPD, coronary artery disease, JOSÉ MIGUEL, hypertension. Initial triage vitals vitals unremarkable MD complaint: chest pain indicative of cardiac Onset (ago): week(s) Duration: intermittent Activity at onset: during exertion Pain location: left chest Severity: moderate Severity scale (1-10): 9 Quality: tightness, aching and heaviness Pain radiation: LUE Relieving factors: nitroglycerin Treatments prior to or on arrival for Cardiac Chest Pain: aspirin Related Data Home Medications ?Medication ?Instructions ?Recorded ?Confirmed apixaban 5 mg tablet (Eliquis) 5 mg PO BID 05/14/24 11/12/24 losartan 100 mg tablet 100 mg PO DAILY 07/18/24 11/12/24 blood sugar diagnostic (Accu-Chek #10 ea 10/02/24 11/12/24 Guide test strips) furosemide 80 mg tablet 80 mg PO DAILY PRN Fluid 10/02/24 11/12/24 aspirin 325 mg tablet 325 mg PO DAILY 11/12/24 11/12/24 clopidogrel 75 mg tablet 75 mg PO DAILY 11/12/24 11/13/24 metformin 1,000 mg tablet 1,000 mg PO BIDWMEAL 11/12/24 11/13/24 rosuvastatin 10 mg tablet 10 mg PO DAILY 11/12/24 11/12/24 carvedilol 12.5 mg tablet 12.5 mg PO BID 11/13/24 11/13/24 Allergies Allergy/AdvReac Type Severity Reaction Status Date / Time ZAIN Inhibitors AdvReac Mild Cough Verified 10/02/24 14:30 [facility] <RUBY Tee - Last Filed: 11/12/24 17:01> [facility] Disclaimer: The information contained in this section may have been updated after the patient was seen, as this information can be updated by other users. Medical History Shortness of breath Acidosis, lactic Chest pain Bronchitis Lumbar strain Mass of both parotid glands Pain, dental Intolerance of continuous positive airway pressure (CPAP) ventilation Sleep apnea Osteoarthritis Hyperlipidemia BMI 37.0-37.9, adult Type 2 diabetes mellitus without complications Hypertension Surgical History History of hernia repair History of tonsillectomy Family History Other COPD (chronic obstructive pulmonary disease) Diabetes Hyperlipidemia Hypertension Social History Smoking Status: Former smoker alcohol intake: current alcohol intake frequency: a few times a month substance use type: denies use current occupational status: retired Travel in the last 8 weeks: None household members: spouse, family and children housing: house current occupational exposures/hazards: No caffeine: Yes Have you lived/traveled outside [place] in past 30 days?: No Contact w/someone who lives/traveled outside US past 30 days?: No Exposure to someone with infectious disease in past 14 days?: No Do you have a fever (greater than 100.4 F or 38 C)?: No Have you tested positive for COVID-19: No Exposed to someone with COVID-19 in past 14 days?: No Do you have a sore throat?: No Do you have a cough?: No Do you have any weakness?: No Do you have any diarrhea?: No Are you experiencing any unusual bleeding?: No Do you have any muscle aches/pain?: No Do you have any abdominal pain?: No Are you experiencing loss of taste or smell?: No Other Medical History Have you received the Flu Vaccine for this season: No Have you received the Pneumonia Vaccine: No <RUBY Tee - Last Filed: 11/12/24 17:01> ROS Obtained: Yes All systems reviewed & no additional complaints except as documented Physical Exam <RUBY Tee - Last Filed: 11/12/24 17:01> General General appearance: alert and in no apparent distress Head Head exam: atraumatic and normocephalic Eye Eye exam: Present normal appearance, PERRL and EOMI Neck Neck exam: Present full ROM; Absent meningismus Chest Chest inspection: Present normal inspection Respiratory Respiratory exam: Absent respiratory distress, wheezes, stridor, accessory muscle use or prolonged expiratory phase Cardiovascular Cardiovascular exam: Present normal rhythm and other (Pulses equal and symmetric in bilateral upper and lower extremities) Abdominal Exam Abdominal exam: Absent distention Extremities Exam Extremities exam: Absent edema Neurological Exam Neurological exam: Present alert Psychiatric Psychiatric exam: Present normal affect Skin Skin exam: Present warm and dry HEART Score <RUBY Tee - Last Filed: 11/12/24 17:01> HEART Score HEART Score assessment performed?: Yes History (anamnesis): Moderately suspicious HEART Score: 6 <vKng Balderrama MD - Last Filed: 11/13/24 10:38> HEART Score HEART Score: 6 Critical Care <RUBY Tee - Last Filed: 11/12/24 17:01> Critical Care Time Critical Care Time: No <Kvng Balderrama MD - Last Filed: 11/13/24 10:38> Critical Care Time Critical Care Time: Yes (cardiac) Attestation: On 11/12/24, the high probability of a clinically significant, sudden or life threatening deterioration of the following system(s) required my full and direct attention, intervention and personal management. The time I documented below is in addition to time spent performing reported procedures but includes the following listed in this critical care notation. Total Time Total Critical Care Time: 45 Medical Decision Making <RUBY Tee - Last Filed: 11/12/24 17:01> Medical Records Medical records reviewed: Yes I reviewed the patient's medical records. Jef Inquiry Pt receiving controlled substance: No Jef was queried for this patient: No Vital Signs Vital Signs: 11/12/24 12:25 11/12/24 12:40 11/12/24 12:42 Temperature 98.3 F Temperature Source Oral Pulse Rate 94 H Pulse Rate [Left Radial] 94 H Respiratory Rate 18 17 Blood Pressure 153/82 H Blood Pressure [Right Arm] 156/100 H Blood Pressure Mean [Right Arm] 118 Blood Pressure Source Blood Pressure Position 02 Sat by Pulse Oximetry 95 Oxygen Delivery Method Room Air 11/12/24 13:01 11/12/24 13:31 11/12/24 14:01 Temperature Temperature Source Pulse Rate 68 67 Pulse Rate [Left Radial] Respiratory Rate 12 12 14 Blood Pressure 142/68 H 121/54 L 87/52 L Blood Pressure [Right Arm] Blood Pressure Mean [Right Arm] Blood Pressure Source Blood Pressure Position 02 Sat by Pulse Oximetry 98 98 Oxygen Delivery Method Room Air Room Air 11/12/24 14:11 11/12/24 14:30 11/12/24 15:00 Temperature Temperature Source Pulse Rate Pulse Rate [Left Radial] Respiratory Rate 18 13 20 Blood Pressure 117/69 111/60 108/67 L Blood Pressure [Right Arm] Blood Pressure Mean [Right Arm] Blood Pressure Source Blood Pressure Position 02 Sat by Pulse Oximetry Oxygen Delivery Method 11/12/24 15:31 11/12/24 16:01 11/12/24 16:12 Temperature 98.3 F Temperature Source Oral Pulse Rate 58 L 67 Pulse Rate [Left Radial] Respiratory Rate 18 20 18 Blood Pressure 126/71 112/72 126/71 Blood Pressure [Right Arm] Blood Pressure Mean [Right Arm] Blood Pressure Source Automatic Cuff Blood Pressure Position Sitting 02 Sat by Pulse Oximetry 96 Oxygen Delivery Method Room Air Room Air Lab Data Labs: Lab Results 11/12/24 12:35: WBC 8.3, RBC 4.60, Hgb 14.7, Hct 43.1, MCV 93.7, MCH 32.0 H, MCHC 34.1, RDW 12.3, Plt Count 254, MPV 8.8, Neut % (Auto) 68.6, Lymph % (Auto) 15.7, Pondera % (Auto) 7.3, Eos % (Auto) 6.8, Baso % (Auto) 0.8, Neut # (Auto) 5.7, Lymph # (Auto) 1.3, Pondera # (Auto) 0.6, Eos # (Auto) 0.6 H, Baso # (Auto) 0.1, PT 11.5, INR 1.03, Sodium 134 L, Potassium 4.8, Chloride 99, Carbon Dioxide 30, Anion Gap 9.8, BUN 14, Creatinine 0.70, Estimated Creat Clear 81, Estimated GFR 112, Est GFR ( Amer) 135, Glucose 284 H, Calcium 9.2, Magnesium 1.7, Total Bilirubin 0.5, AST 24, ALT 25, Alkaline Phosphatase 109, Troponin I 0.08 H, NT-Pro-B Natriuret Pep 645 H, Total Protein 7.2, Albumin 4.3, Globulin 2.9, Albumin/Globulin Ratio 1.5, Lipase 292 11/12/24 15:46: Troponin I 0.08 H 11/13/24 05:29 11/13/24 05:29 Response Orders (Tests/Meds): ED MEDICATIONS Discontinued Medications Generic Name Dose Route Start Last Admin Trade Name Freq PRN Reason Stop Dose Admin Acetaminophen 650 mg 11/12/24 18:07 Acetaminophen 325mg Tab PO 12/12/24 18:06 Q4HP PRN Fever or Mild Pain (1-3) Aspirin 325 mg 11/12/24 15:47 11/12/24 16:10 Aspirin 325mg Tablet PO 11/12/24 15:48 325 mg ONCE ONE Administration Aspirin 81 mg 11/13/24 09:00 11/13/24 08:08 Aspirin Ec 81mg Tablet PO 12/13/24 08:59 81 mg DAILY AKOSUA Administration Clopidogrel Bisulfate 75 mg 11/13/24 09:00 11/13/24 08:08 Clopidogrel 75mg Tab PO 12/13/24 08:59 75 mg DAILY AKOSUA Administration Furosemide 40 mg 11/12/24 20:05 11/12/24 21:02 Furosemide 40mg/4ml Vial IV 11/12/24 20:06 40 mg ONCE ONE Administration Metformin HCl 500 mg 11/13/24 09:00 11/13/24 08:09 Metformin 500mg Tablet PO 12/13/24 08:59 Not Given BIDWMEAL AKOSUA Ondansetron HCl 4 mg 11/12/24 18:07 Ondansetron 4mg/2ml Vial IV 12/12/24 18:06 Q8HP PRN Nausea ORDERS Category Date Time Status XR chest portable Stat Exams 11/12/24 12:42 Completed Complete Blood Count Auto Diff Stat Lab 11/12/24 12:35 Completed Comprehensive Metabolic Panel Stat Lab 11/12/24 12:35 Completed Lipase Stat Lab 11/12/24 12:35 Completed Magnesium Stat Lab 11/12/24 12:35 Completed NT Pro Brain Natriuretic Pep. Stat Lab 11/12/24 12:35 Completed PT INR [Prothrombin Time INR] Stat Lab 11/12/24 12:35 Completed Troponin I Q3H Lab 11/12/24 15:46 Completed Troponin I Q3H Lab 11/12/24 18:41 Completed Troponin I Stat Lab 11/12/24 12:35 Completed MDM Narrative Medical Decision Narrative: 69-year-old male presents the emergency department with chest pain that is worse with exertion, see HPI for detail past medical history, differential diagnose include but not limited to ACS, cardiac arrhythmia, electrolyte disturbance, Prinzmetal's angina, costochondritis, anxiety type reaction, panic attack, musculoskeletal chest pain, gastritis, GERD, pneumonia, pneumothorax. Will obtain basic oratory studies, lactate lipase magnesium level proBNP PT/INR, troponin, EKG chest x-ray. CBC unremarkable. PT/INR within no limits. CMP notable for mild hyperglycemia 284 Troponin is mildly elevated at 0.08, proBNP is elevated at 645, I discussed this patient's case and reviewed the patient's EKG with Dr. Bhanu Fuentes the on-call grade tamper at approximately 1:34 PM, he believe this is more of multi focal atrial fibrillation, and the troponin can be attributed to recent intervention. He recommends delta troponin and statin therapy if if patient is not already taking. I discussed this patient's case with the on-call grade tamper at [facility] at 3:[address] Orozco. He recommends admission to [facility], however at this time [facility] is on a wait list. Patient will be placed on wait list, and be preadmitted as a cardiac cath tomorrow in the cardiac catheterization suite, he recommends n.p.o. after midnight and hold Eliquis at this time. I discussed plan with the patient at the bedside patient agreed with current treatment plan/transfer plan. Patient will need to be admitted for observation admission here at this facility until bed opens up in the a.m. with plans of cardiac cath at [facility]. Patient let me know that he has not yet taken his aspirin today he has already takien his Plavix and Eliquis today, he has not yet taken his aspirin dose, will give 325 mg p.o. aspirin dose here in the emergency department. This is the patient's home dose. I discussed this patient's case with the hospitalist at 3:35 PM, . He is in agreement with the current admission plan/treatment plan for cardiac observation with plan to transfer to [facility] for cardiac catheterization in the a.m. Patient will be made n.p.o. after midnight and will hold Eliquis therapy at this time. Patient is in agreement with current admission plan/transfer plan. I reviewed the patient's chest x-ray along the corresponding radiologic report there is no acute process. <Kvng Balderrama MD - Last Filed: 11/13/24 10:38> Vital Signs Vital Signs: 11/12/24 12:25 11/12/24 12:40 11/12/24 12:42 Temperature 98.3 F Temperature Source Oral Pulse Rate 94 H Pulse Rate [Left Radial] 94 H Respiratory Rate 18 17 Blood Pressure 153/82 H Blood Pressure [Right Arm] 156/100 H Blood Pressure Mean [Right Arm] 118 Blood Pressure Source Blood Pressure Position 02 Sat by Pulse Oximetry 95 Oxygen Delivery Method Room Air 11/12/24 13:01 11/12/24 13:31 11/12/24 14:01 Temperature Temperature Source Pulse Rate 68 67 Pulse Rate [Left Radial] Respiratory Rate 12 12 14 Blood Pressure 142/68 H 121/54 L 87/52 L Blood Pressure [Right Arm] Blood Pressure Mean [Right Arm] Blood Pressure Source Blood Pressure Position 02 Sat by Pulse Oximetry 98 98 Oxygen Delivery Method Room Air Room Air 11/12/24 14:11 11/12/24 14:30 11/12/24 15:00 Temperature Temperature Source Pulse Rate Pulse Rate [Left Radial] Respiratory Rate 18 13 20 Blood Pressure 117/69 111/60 108/67 L Blood Pressure [Right Arm] Blood Pressure Mean [Right Arm] Blood Pressure Source Blood Pressure Position 02 Sat by Pulse Oximetry Oxygen Delivery Method 11/12/24 15:31 11/12/24 16:01 11/12/24 16:12 Temperature 98.3 F Temperature Source Oral Pulse Rate 58 L 67 Pulse Rate [Left Radial] Respiratory Rate 18 20 18 Blood Pressure 126/71 112/72 126/71 Blood Pressure [Right Arm] Blood Pressure Mean [Right Arm] Blood Pressure Source Automatic Cuff Blood Pressure Position Sitting 02 Sat by Pulse Oximetry 96 Oxygen Delivery Method Room Air Room Air Lab Data Labs: Lab Results 11/12/24 12:35: WBC 8.3, RBC 4.60, Hgb 14.7, Hct 43.1, MCV 93.7, MCH 32.0 H, MCHC 34.1, RDW 12.3, Plt Count 254, MPV 8.8, Neut % (Auto) 68.6, Lymph % (Auto) 15.7, Pondera % (Auto) 7.3, Eos % (Auto) 6.8, Baso % (Auto) 0.8, Neut # (Auto) 5.7, Lymph # (Auto) 1.3, Pondera # (Auto) 0.6, Eos # (Auto) 0.6 H, Baso # (Auto) 0.1, PT 11.5, INR 1.03, Sodium 134 L, Potassium 4.8, Chloride 99, Carbon Dioxide 30, Anion Gap 9.8, BUN 14, Creatinine 0.70, Estimated Creat Clear 81, Estimated GFR 112, Est GFR ( Amer) 135, Glucose 284 H, Calcium 9.2, Magnesium 1.7, Total Bilirubin 0.5, AST 24, ALT 25, Alkaline Phosphatase 109, Troponin I 0.08 H, NT-Pro-B Natriuret Pep 645 H, Total Protein 7.2, Albumin 4.3, Globulin 2.9, Albumin/Globulin Ratio 1.5, Lipase 292 11/12/24 15:46: Troponin I 0.08 H Response Orders (Tests/Meds): ED MEDICATIONS Discontinued Medications Generic Name Dose Route Start Last Admin Trade Name Freq PRN Reason Stop Dose Admin Acetaminophen 650 mg 11/12/24 18:07 Acetaminophen 325mg Tab PO 12/12/24 18:06 Q4HP PRN Fever or Mild Pain (1-3) Aspirin 325 mg 11/12/24 15:47 11/12/24 16:10 Aspirin 325mg Tablet PO 11/12/24 15:48 325 mg ONCE ONE Administration Aspirin 81 mg 11/13/24 09:00 11/13/24 08:08 Aspirin Ec 81mg Tablet PO 12/13/24 08:59 81 mg DAILY AKOSUA Administration Clopidogrel Bisulfate 75 mg 11/13/24 09:00 11/13/24 08:08 Clopidogrel 75mg Tab PO 12/13/24 08:59 75 mg DAILY AKOSUA Administration Furosemide 40 mg 11/12/24 20:05 11/12/24 21:02 Furosemide 40mg/4ml Vial IV 11/12/24 20:06 40 mg ONCE ONE Administration Metformin HCl 500 mg 11/13/24 09:00 11/13/24 08:09 Metformin 500mg Tablet PO 12/13/24 08:59 Not Given BIDWMEAL AKOSUA Ondansetron HCl 4 mg 11/12/24 18:07 Ondansetron 4mg/2ml Vial IV 12/12/24 18:06 Q8HP PRN Nausea ORDERS Category Date Time Status XR chest portable Stat Exams 11/12/24 12:42 Completed Complete Blood Count Auto Diff Stat Lab 11/12/24 12:35 Completed Comprehensive Metabolic Panel Stat Lab 11/12/24 12:35 Completed Lipase Stat Lab 11/12/24 12:35 Completed Magnesium Stat Lab 11/12/24 12:35 Completed NT Pro Brain Natriuretic Pep. Stat Lab 11/12/24 12:35 Completed PT INR [Prothrombin Time INR] Stat Lab 11/12/24 12:35 Completed Troponin I Q3H Lab 11/12/24 15:46 Completed Troponin I Q3H Lab 11/12/24 18:41 Completed Troponin I Stat Lab 11/12/24 12:35 Completed ECG Data Tracing #1: Attestation: I reviewed this ECG and interpreted as documented below: (A-fib 88 bpm with QRS 125, QTc 396. Leftward axis patient has T wave inversions and ST depressions in high lateral leads, no reciprocal elevations) MDM Narrative Medical Decision Narrative: 69-year-old male presents the emergency department with chest pain that is worse with exertion, see HPI for detail past medical history, differential diagnose include but not limited to ACS, cardiac arrhythmia, electrolyte disturbance, Prinzmetal's angina, costochondritis, anxiety type reaction, panic attack, musculoskeletal chest pain, gastritis, GERD, pneumonia, pneumothorax. Will obtain basic oratory studies, lactate lipase magnesium level proBNP PT/INR, troponin, EKG chest x-ray. CBC unremarkable. PT/INR within no limits. CMP notable for mild hyperglycemia 284 Troponin is mildly elevated at 0.08, proBNP is elevated at 645, I discussed this patient's case and reviewed the patient's EKG with Dr. Bhanu Fuentes the on-call grade tamper at approximately 1:34 PM, he believe this is more of multi focal atrial fibrillation, and the troponin can be attributed to recent intervention. He recommends delta troponin and statin therapy if if patient is not already taking. I discussed this patient's case with the on-call grade tamper at [facility] at 3:[address] Orozco. He recommends admission to [facility], however at this time [facility] is on a wait list. Patient will be placed on wait list, and be preadmitted as a cardiac cath tomorrow in the cardiac catheterization suite, he recommends n.p.o. after midnight and hold Eliquis at this time. I discussed plan with the patient at the bedside patient agreed with current treatment plan/transfer plan. Patient will need to be admitted for observation admission here at this facility until bed opens up in the a.m. with plans of cardiac cath at [facility]. Patient let me know that he has not yet taken his aspirin today he has already takien his Plavix and Eliquis today, he has not yet taken his aspirin dose, will give 325 mg p.o. aspirin dose here in the emergency department. This is the patient's home dose. I discussed this patient's case with the hospitalist at 3:35 PM, . He is in agreement with the current admission plan/treatment plan for cardiac observation with plan to transfer to [facility] for cardiac catheterization in the a.m. Patient will be made n.p.o. after midnight and will hold Eliquis therapy at this time. Patient is in agreement with current admission plan/transfer plan. I reviewed the patient's chest x-ray along the corresponding radiologic report there is no acute process. I was consulted by the LINDA, and we discussed the complexity of the problems being addressed. I approved the treatment and management plan for this patient's care in the Emergency Department, thus performing a substantive portion of the medical decision making. Kvng Balderrama MD
[2024-11-12 12:47] LABS: Basophils # 0.1 K/mm3 (0-0.2); Basophils % 0.8 % (0.1-2.0); Eosinophils # 0.6 K/mm3 (0.0-0.4); Eosinophils % 6.8 % (0.1-12.0); Hematocrit 43.1 % (42.0-52.0); Hemoglobin 14.7 g/dL (14.1-18.0); Lymphocytes # 1.3 K/mm3 (0.7-4.5); Lymphocytes % 15.7 % (10-50); Mean Corpuscular HGB Conc 34.1 g/dL (31.8-35.4); Mean Corpuscular Volume 93.7 fl (80-94); Mean Platelet Volume 8.8 fl (7.4-10.4); Monocytes # 0.6 K/mm3 (0.1-1.0); Monocytes % 7.3 % (1.7-9.3); Neutrophils # 5.7 K/mm3 (1.8-7.8); Neutrophils % 68.6 % (37.0-80.0); Platelet Count 254 K/mm3 (142-424); Red Cell Distribution Width 12.3 % (11.5-17.5); White Blood Count 8.3 K/mm3 (4.8-10.8)
[2024-11-12 12:52] LABS: Chloride 99 mmol/L (98-107)
[2024-11-12 12:53] LABS: Albumin Level 4.3 g/dl (3.5-5.0); Potassium 4.8 mmoL/L (3.5-5.1); Sodium 134 mmol/L (136-145)
[2024-11-12 12:55] LABS: Blood Urea Nitrogen 14 mg/dl (9-20); Creatinine Clearance Estimated 81 mL/min (50-200); Estimated Glomerular Filt Rate 112 ml/min (>60); GFR (African American) 135 ML/MIN (>60)
[2024-11-12 12:56] LABS: Alanine Aminotransferase 25 U/L (12-78); Albumin/Globulin Ratio 1.5 (1.1-1.8); Alkaline Phosphatase 109 U/L (38-126); Anion Gap 9.8 mEq/L (5-15); Aspartate Amino Transferase 24 U/L (17-59); Bilirubin,Total 0.5 mg/dl (0.2-1.3); Calcium 9.2 mg/dl (8.4-10.2); Carbon Dioxide 30 mmol/L (22.0-30.0); Globulin 2.9 g/dL (1.3-3.2); Glucose 284 mg/dl (74-100); Lipase 292 U/L (23-300); Magnesium 1.7 mg/dl (1.6-2.3); Total Protein,Serum 7.2 g/dl (6.3-8.2)
[2024-11-12 12:58] LABS: INR 1.03 (0.9-1.1); Prothrombin Time 11.5 seconds (10.1-12.5)
[2024-11-12 13:05] LABS: NT Pro Brain Natriuretic Pep. 645 pg/mL (0-125)
[2024-11-12 13:08] LABS: Troponin I 0.08 ng/ml (0.00-0.034)
--- NOTE | 2024-11-12 14:20 | PC.NURSE ---
called [facility] for [facility] consult with in cardiology for elevated trop per priya cervantes. priya stated pt was cathed last week and recieved two stents in the lad by
--- NOTE | 2024-11-12 14:58 | PC.NURSE ---
CALLED [facility] BACK FOR AN UPDATE PUBLIC HEALTH TECHNICIAN BACK FROM CARDIOLOGY, SHE STATED NO RESPONSE FROM THE PAGE ORIGINALLY FOR RACHEL SO WAITING FOR THE NEXT CARDIOLOGY TO COME ON AT 15:00 AND PUT A PAGE OUT TO HIM
[2024-11-12] MEDS: ASPIRIN 325MG TABLET 325 MG PO (16:10)
[2024-11-12 16:17] LABS: Troponin I 0.08 ng/ml (0.00-0.034)
--- NOTE | 2024-11-12 16:17 | PC.NURSE ---
Jaden BELTRAN ok to not collect lactic
--- NOTE | 2024-11-12 16:31 | PC.NURSE ---
arrived by w/c from ED
--- NOTE | 2024-11-12 18:06 | P.HP_ITS ---
History of Present Illness *Admission Date: 11/12/24 *Reason for visit:: Chest pain *History of present illness: Luis Hernandez is a 69-year-old male with a medical history significant for CAD s/p 2 stents at [facility] in October 2024, chronic tobacco smoker, A- flutter on Eliquis, hypertension, hyperlipidemia, type 2 diabetes, who presents with left-sided chest pain since his PCI at [facility] 1 week ago. He states he had 2 stents placed in his LAD 1 week ago and has subsequent left- sided chest pain with radiation down his left arm which was thought to be vasospasms at [facility]. He continues to have these left-sided chest pains at home which have become more persistent so patient came to our ED today. Has been compliant to his DAPT. Denies shortness of breath, dizziness. Workup in the ED significant for troponin 0.08, BNP 645 but otherwise unremarkable workup. EKG without acute ischemic changes. ED reached out to [facility] who recommended follow-up PCI for an occlusion that was not stented at that time, placed on wait list. Recommended DAPT and n.p.o. at midnight. Case discussed with ED provider initially was made to admit patient for chest pain. [facility] Disclaimer: The information contained in this section may have been updated after the patient was seen, as this information can be updated by other users. Medical History Shortness of breath Acidosis, lactic Chest pain Bronchitis Lumbar strain Mass of both parotid glands Pain, dental Intolerance of continuous positive airway pressure (CPAP) ventilation Sleep apnea Osteoarthritis Hyperlipidemia BMI 37.0-37.9, adult Type 2 diabetes mellitus without complications Hypertension Surgical History History of hernia repair History of tonsillectomy Family History Other COPD (chronic obstructive pulmonary disease) Diabetes Hyperlipidemia Hypertension Social History Smoking Status: Former smoker alcohol intake: current alcohol intake frequency: a few times a month substance use type: denies use current occupational status: retired Travel in the last 8 weeks: None household members: spouse, family and children housing: house current occupational exposures/hazards: No caffeine: Yes Have you lived/traveled outside [place] in past 30 days?: No Contact w/someone who lives/traveled outside US past 30 days?: No Exposure to someone with infectious disease in past 14 days?: No Do you have a fever (greater than 100.4 F or 38 C)?: No Have you tested positive for COVID-19: No Exposed to someone with COVID-19 in past 14 days?: No Do you have a sore throat?: No Do you have a cough?: No Do you have any weakness?: No Do you have any diarrhea?: No Are you experiencing any unusual bleeding?: No Do you have any muscle aches/pain?: No Do you have any abdominal pain?: No Are you experiencing loss of taste or smell?: No Other Medical History Have you received the Flu Vaccine for this season: Yes Have you received the Pneumonia Vaccine: No Meds Home Medications and Allergies Home Medications ?Medication ?Instructions ?Recorded ?Confirmed ?Type apixaban 5 mg tablet (Eliquis) 5 mg PO BID 05/14/24 11/12/24 History losartan 100 mg tablet 100 mg PO DAILY 07/18/24 11/12/24 History blood sugar diagnostic (Accu-Chek #10 ea 10/02/24 11/12/24 History Guide test strips) carvedilol 12.5 mg tablet 12.5 mg PO ONCE 10/02/24 11/12/24 History furosemide 80 mg tablet 80 mg PO DAILY PRN Fluid 10/02/24 11/12/24 History aspirin 325 mg tablet 325 mg PO DAILY 11/12/24 11/12/24 History clopidogrel 75 mg tablet 75 mg PO DAILY 11/12/24 11/12/24 History metformin 1,000 mg tablet 500 mg PO BIDWMEAL 11/12/24 11/12/24 History rosuvastatin 10 mg tablet 10 mg PO DAILY 11/12/24 11/12/24 History New Prescriptions to Start Prescriptions: Allergies Allergy/AdvReac Type Severity Reaction Status Date / Time ZAIN Inhibitors AdvReac Mild Cough Verified 10/02/24 14:30 Exam Data for Last 24 hours Vital signs and Labs for Last 24 Hours: Temp Pulse Resp BP Pulse Ox O2 Del Method 98.3 F 50 L 14 112/72 98 Room Air 11/12/24 16:12 11/12/24 16:59 11/12/24 16:38 11/12/24 16:38 11/12/24 16:38 11/12/24 17:00 Laboratory Results - last 24 hr 11/12/24 12:35: WBC 8.3, RBC 4.60, Hgb 14.7, Hct 43.1, MCV 93.7, MCH 32.0 H, MCHC 34.1, RDW 12.3, Plt Count 254, MPV 8.8, Neut % (Auto) 68.6, Lymph % (Auto) 15.7, [place] % (Auto) 7.3, Eos % (Auto) 6.8, Baso % (Auto) 0.8, Neut # (Auto) 5.7, Lymph # (Auto) 1.3, [place] # (Auto) 0.6, Eos # (Auto) 0.6 H, Baso # (Auto) 0.1, PT 11.5, INR 1.03, Sodium 134 L, Potassium 4.8, Chloride 99, Carbon Dioxide 30, Anion Gap 9.8, BUN 14, Creatinine 0.70, Estimated Creat Clear 81, Estimated GFR 112, Est GFR ( Amer) 135, Glucose 284 H, Calcium 9.2, Magnesium 1.7, [place] Bilirubin 0.5, AST 24, ALT 25, Alkaline Phosphatase 109, Troponin I 0.08 H, NT-Pro-B Natriuret Pep 645 H, Total Protein 7.2, Albumin 4.3, Globulin 2.9, Albumin/Globulin Ratio 1.5, Lipase 292 11/12/24 15:46: Troponin I 0.08 H I & O for Last 24 hours: Intake & Output 11/09/24 11/10/24 11/11/24 11/12/24 23:59 23:59 23:59 23:59 Weight 158.842 kg Constitutional Constitutional: no acute distress and obese *Routine HEENT Exam Head: Present normocephalic Eye: Present EOMI and PERRL ENT: Present mucous membranes moist *Routine Neck Exam Neck: Present supple; Absent lymphadenopathy *Routine Respiratory Exam Respiratory: Present CTA bilaterally *Routine Cardiovascular Exam Cardiovascular: Present irregularly irregular *Routine Abdominal Exam Abdominal: Present soft and normoactive bowel sounds; Absent tenderness *Routine Rectal Exam Rectal:: deferred *Routine Genitalia Exam Genitalia:: deferred *Routine Extremities Exam Extremities: Absent cyanosis, clubbing or edema *Routine Skin Exam Skin: Present warm; Absent rash *Routine Neurological Exam Neurological: Present alert and oriented X3 Assessment and Plan *Assessment and plan (1) CAD (coronary artery disease): Status: Acute Category: Medical Code(s): I25.10 - Atherosclerotic heart disease of [place] coronary artery without angina pectoris Plan Luis Hernandez is a 69-year-old male with a medical history significant for CAD s/p 2 stents at [facility] in October 2024, chronic tobacco smoker, A- flutter on Eliquis, hypertension, hyperlipidemia, type 2 diabetes, who presents with left-sided chest pain since his PCI at [facility] 1 week ago. He states he had 2 stents placed in his LAD 1 week ago and has subsequent left- sided chest pain with radiation down his left arm which was thought to be vasospasms at [facility]. He continues to have these left-sided chest pains at home which have become more persistent so patient came to our ED today. Has been compliant to his DAPT. Denies shortness of breath, dizziness. Workup in t he ED significant for troponin 0.08, BNP 645 but otherwise unremarkable workup. EKG without acute ischemic changes. ED reached out to [facility] who recommended follow-up PCI for an occlusion that was not stented at that time, placed on wait list. Recommended DAPT and n.p.o. at midnight. Case discussed with ED provider initially was made to admit patient for chest pain. #Chest pain #Elevated troponins #Unstable angina ? PCI at [facility] 1 week ago with 2 stents to the LAD. ? [facility] recommends follow-up PCI for an occlusion that was not st ented at that time, placed on wait list. N.p.o. at midnight. ? Aspirin 81 mg, Plavix 75 mg, rosuvastatin 10 mg. Heart rate in the 50s, hold AV jason blockers for now. ? Pending bed opening at [facility]. N.p.o. at midnight. ? Continuous cardiac telemetry. #A-fib - Currently rate controlled. Heart rate in the 50s, hold AV jason blockers for now. ? Hold home Eliquis for likely LHC tomorrow. #HFpEF ? Seems slightly volume overloaded. Will give one-time dose of IV Lasix 40 mg. #Hypertension - Resume home regimen once reconciled. #Type 2 diabetes - MDSSI, ACHS glucose chescks - Resume home regimen. Full code DVT prophylaxis: Hold anticoagulation for likely LHC tomorrow. Patient is ambulatory
[2024-11-12 19:11] LABS: Troponin I 0.07 ng/ml (0.00-0.034)
[2024-11-12] MEDS: FUROSEMIDE 40MG/4ML VIAL 40 MG IV (21:02)
[2024-11-13] VITALS: BP 130/74; PULSE 70; PULSE 87; RESP 16; TEMP 36.6; O2SAT 95
[2024-11-13 04:00] VITALS: BP 136/75; PULSE 57; PULSE 80; RESP 16; TEMP 36.6; O2SAT 94; BMI 20.7
--- NOTE | 2024-11-13 04:21 | PC.NURSE ---
V/s, ox4. Pt denies sob and pain. Pt pending transfer to [facility]. NPO at midnight for possible heart cath. [facility] Administration has called and nurse was given phone number to call report, but [facility] admin stated the laborer operator personnel wouldn't be in until 0700. Will transfer info to day shift nurse. Plan of care ongoing.
[2024-11-13 06:36] LABS: Alanine Aminotransferase 19 U/L (12-78); Albumin Level 3.9 g/dl (3.5-5.0); Albumin/Globulin Ratio 1.3 (1.1-1.8); Alkaline Phosphatase 76 U/L (38-126); Aspartate Amino Transferase 22 U/L (17-59); Bilirubin,Total 0.8 mg/dl (0.2-1.3); Blood Urea Nitrogen 13 mg/dl (9-20); Calcium 8.7 mg/dl (8.4-10.2); Carbon Dioxide 32 mmol/L (22.0-30.0); Chloride 97 mmol/L (98-107); Creatinine Clearance Estimated 72 mL/min (50-200); Estimated Glomerular Filt Rate 96 ml/min (>60); GFR (African American) 116 ML/MIN (>60); Globulin 2.9 g/dL (1.3-3.2); Glucose 175 mg/dl (74-100); Magnesium 1.9 mg/dl (1.6-2.3); Sodium 136 mmol/L (136-145); Total Protein,Serum 6.8 g/dl (6.3-8.2)
[2024-11-13 06:37] LABS: Basophils # 0.1 K/mm3 (0-0.2); Basophils % 0.8 % (0.1-2.0); Eosinophils # 0.6 K/mm3 (0.0-0.4); Eosinophils % 5.4 % (0.1-12.0); Hematocrit 42.9 % (42.0-52.0); Hemoglobin 14.3 g/dL (14.1-18.0); Lymphocytes # 1.7 K/mm3 (0.7-4.5); Lymphocytes % 16.6 % (10-50); Mean Corpuscular HGB Conc 33.3 g/dL (31.8-35.4); Mean Corpuscular Hemoglobin 31.6 pg (27.0-31.2); Mean Corpuscular Volume 94.7 fl (80-94); Mean Platelet Volume 8.9 fl (7.4-10.4); Monocytes # 0.8 K/mm3 (0.1-1.0); Monocytes % 8.1 % (1.7-9.3); Neutrophils # 7.1 K/mm3 (1.8-7.8); Neutrophils % 68.7 % (37.0-80.0); Platelet Count 262 K/mm3 (142-424); Red Blood Count 4.53 M/mm3 (4.60-6.20); Red Cell Distribution Width 12.5 % (11.5-17.5); White Blood Count 10.3 K/mm3 (4.8-10.8)
--- NOTE | 2024-11-13 07:46 | EXP.DC.SUM ---
General Admission date:: 11/12/24 HPI HPI HPI: Luis Hernandez is a 69-year-old male with a medical history significant for CAD s/p 2 stents at [facility] in October 2024, chronic tobacco smoker, A-flutter on Eliquis, hypertension, hyperlipidemia, type 2 diabetes, who presents with left-sided chest pain since his PCI at [facility] 1 week ago. He states he had 2 stents placed in his LAD 1 week ago and has subsequent left-sided chest pain with radiation down his left arm which was thought to be vasospasms at [facility]. He continues to have these left-sided chest pains at home which have become more persistent so patient came to our ED today. Has been compliant to his DAPT. Denies shortness of breath, dizziness. Workup in the ED significant for troponin 0.08, BNP 645 but otherwise unremarkable workup. EKG without acute ischemic changes. ED reached out to [facility] who recommended follow-up PCI for an occlusion that was not stented at that time, placed on wait list. Recommended DAPT and n.p.o. at midnight. Case discussed with ED provider initially was made to admit patient for chest pain. Hospital Course Hospital Course Hospital Course: Luis Hernandez is a 69-year-old male with a medical history significant for CAD s/p 2 stents at [facility] in October 2024, chronic tobacco smoker, A-flutter on Eliquis, hypertension, hyperlipidemia, type 2 diabetes, who presents with left-sided chest pain since his PCI at [facility] 1 week ago. He states he had 2 stents placed in his LAD 1 week ago and has subsequent left-sided chest pain with radiation down his left arm which was thought to be vasospasms at [facility]. He continues to have these left-sided chest pains at home which have become more persistent so patient came to our ED today. Has been compliant to his DAPT. Denies shortness of breath, dizziness. Workup in the ED significant for troponin 0.08, BNP 645 but otherwise unremarkable workup. EKG without acute ischemic changes. ED reached out to [facility] who recommended follow-up PCI for an occlusion that was not stented at that time, placed on wait list. Recommended DAPT and n.p.o. at midnight. Case discussed with ED provider and decision was made to admit patient for chest pain. #Chest pain #Elevated troponins #Unstable angina ? PCI at [facility] 1 week ago with 2 stents to the LAD. ? [facility] recommends follow-up PCI for an occlusion that was not stented at that time, placed on wait list. ? Aspirin 81 mg, Plavix 75 mg, rosuvastatin 10 mg. Heart rate in the 50s, hold AV jason blockers for now. ? [facility] able to accept patient today, transported via ambulance. Patient remained stable during hospital course. #A-fib - Currently rate controlled. Heart rate in the 50s, hold AV jason blockers for now. ? Hold home Eliquis for likely LHC. #HFpEF ? Seems slightly volume overloaded. Will give one-time dose of IV Lasix 40 mg. #Hypertension - Resume home regimen once reconciled. #Type 2 diabetes - MDSSI, ACHS glucose chescks - Resume home regimen. Exam Data for Last 24 hours Vital signs and Labs for Last 24 Hours: Temp Pulse Resp BP Pulse Ox O2 Del Method 97.9 F 57 L 16 136/75 94 L Room Air 11/13/24 04:00 11/13/24 04:00 11/13/24 04:00 11/13/24 04:00 11/13/24 04:00 11/13/24 06:14 Laboratory Results - last 24 hr 11/12/24 12:35: WBC 8.3, RBC 4.60, Hgb 14.7, Hct 43.1, MCV 93.7, MCH 32.0 H, MCHC 34.1, RDW 12.3, Plt Count 254, MPV 8.8, Neut % (Auto) 68.6, Lymph % (Auto) 15.7, [place] % (Auto) 7.3, Eos % (Auto) 6.8, Baso % (Auto) 0.8, Neut # (Auto) 5.7, Lymph # (Auto) 1.3, [place] # (Auto) 0.6, Eos # (Auto) 0.6 H, Baso # (Auto) 0.1, PT 11.5, INR 1.03, Sodium 134 L, Potassium 4.8, Chloride 99, Carbon Dioxide 30, Anion Gap 9.8, BUN 14, Creatinine 0.70, Estimated Creat Clear 81, Estimated GFR 112, Est GFR ( Amer) 135, Glucose 284 H, Calcium 9.2, Magnesium 1.7, Total Bilirubin 0.5, AST 24, ALT 25, Alkaline Phosphatase 109, Troponin I 0.08 H, NT-Pro-B Natriuret Pep 645 H, Total Protein 7.2, Albumin 4.3, Globulin 2.9, Albumin/Globulin Ratio 1.5, Lipase 292 11/12/24 15:46: Troponin I 0.08 H 11/12/24 18:41: Troponin I 0.07 H 11/13/24 05:29: WBC 10.3, RBC 4.53 L, Hgb 14.3, Hct 42.9, MCV 94.7 H, MCH 31.6 H, MCHC 33.3, RDW 12.5, Plt Count 262, MPV 8.9, Neut % (Auto) 68.7, Lymph % (Auto) 16.6, [place] % (Auto) 8.1, Eos % (Auto) 5.4, Baso % (Auto) 0.8, Neut # (Auto) 7.1, Lymph # (Auto) 1.7, [place] # (Auto) 0.8, Eos # (Auto) 0.6 H, Baso # (Auto) 0.1, Sodium 136, Potassium 4.0, Chloride 97 L, Carbon Dioxide 32 H, Anion Gap 11.0, BUN 13, Creatinine 0.80, Estimated Creat Clear 72, Estimated GFR 96, Est GFR ( Amer) 116, Glucose 175 H D, Calcium 8.7, Magnesium 1.9 D, Total Bilirubin 0.8, AST 22, ALT 19, Alkaline Phosphatase 76, Total Protein 6.8, Albumin 3.9, Globulin 2.9, Albumin/Globulin Ratio 1.3 I & O for Last 24 hours: Intake & Output 11/10/24 11/11/24 11/12/24 11/13/24 23:59 23:59 23:59 23:59 Intake Total 360 / 480 120 / 120 Output Total 0 / 0 Balance 360 / 480 120 / 120 Weight 158.842 kg 73.255 kg Constitutional Constitutional: no acute distress and obese *Routine HEENT Exam Head: Present normocephalic Eye: Present EOMI and PERRL ENT: Present mucous membranes moist *Routine Neck Exam Neck: Present supple; Absent lymphadenopathy *Routine Respiratory Exam Respiratory: Present CTA bilaterally *Routine Cardiovascular Exam Cardiovascular: Present bradycardia *Routine Abdominal Exam Abdominal: Present soft and normoactive bowel sounds; Absent tenderness *Routine Extremities Exam Extremities: Present edema; Absent cyanosis or clubbing *Routine Skin Exam Skin: Present warm; Absent rash *Routine Neurological Exam Neurological: Present alert and oriented X3 Results Data Completed and Pending Labs on day of discharge: Labs from last 24 hours 11/13/24 11/12/24 11/12/24 05:29 18:41 15:46 WBC 10.3 RBC 4.53 L Hgb 14.3 Hct 42.9 MCV 94.7 H MCH 31.6 H MCHC 33.3 RDW 12.5 Plt Count 262 MPV 8.9 Neut % (Auto) 68.7 Lymph % (Auto) 16.6 [place] % (Auto) 8.1 Eos % (Auto) 5.4 Baso % (Auto) 0.8 Neut # (Auto) 7.1 Lymph # (Auto) 1.7 [place] # (Auto) 0.8 Eos # (Auto) 0.6 H Baso # (Auto) 0.1 PT INR Sodium 136 Potassium 4.0 Chloride 97 L Carbon Dioxide 32 H Anion Gap 11.0 BUN 13 Creatinine 0.80 Estimated Creat Clear 72 Estimated GFR 96 Est GFR ( Amer) 116 Glucose 175 H D Calcium 8.7 Magnesium 1.9 D Total Bilirubin 0.8 AST 22 ALT 19 Alkaline Phosphatase 76 Troponin I 0.07 H 0.08 H NT-Pro-B Natriuret Pep Total Protein 6.8 Albumin 3.9 Globulin 2.9 Albumin/Globulin Ratio 1.3 Lipase 11/12/24 12:35 WBC 8.3 RBC 4.60 Hgb 14.7 Hct 43.1 MCV 93.7 MCH 32.0 H MCHC 34.1 RDW 12.3 Plt Count 254 MPV 8.8 Neut % (Auto) 68.6 Lymph % (Auto) 15.7 [place] % (Auto) 7.3 Eos % (Auto) 6.8 Baso % (Auto) 0.8 Neut # (Auto) 5.7 Lymph # (Auto) 1.3 [place] # (Auto) 0.6 Eos # (Auto) 0.6 H Baso # (Auto) 0.1 PT 11.5 INR 1.03 Sodium 134 L Potassium 4.8 Chloride 99 Carbon Dioxide 30 Anion Gap 9.8 BUN 14 Creatinine 0.70 Estimated Creat Clear 81 Estimated GFR 112 Est GFR ( Amer) 135 Glucose 284 H Calcium 9.2 Magnesium 1.7 Total Bilirubin 0.5 AST 24 ALT 25 Alkaline Phosphatase 109 Troponin I 0.08 H NT-Pro-B Natriuret Pep 645 H Total Protein 7.2 Albumin 4.3 Globulin 2.9 Albumin/Globulin Ratio 1.5 Lipase 292 DS: Diagnosis Discharge Diagnosis (1) CAD (coronary artery disease): Status: Acute Code(s): I25.10 - Atherosclerotic heart disease of [place] coronary artery without angina pectoris Meds Home Medications and Allergies Home Medications ?Medication ?Instructions ?Recorded ?Confirmed ?Type apixaban 5 mg tablet (Eliquis) 5 mg PO BID 05/14/24 11/12/24 History losartan 100 mg tablet 100 mg PO DAILY 07/18/24 11/12/24 History blood sugar diagnostic (Accu-Chek #10 ea 10/02/24 11/12/24 History Guide test strips) furosemide 80 mg tablet 80 mg PO DAILY PRN Fluid 10/02/24 11/12/24 History aspirin 325 mg tablet 325 mg PO DAILY 11/12/24 11/12/24 History clopidogrel 75 mg tablet 75 mg PO DAILY 11/12/24 11/13/24 History metformin 1,000 mg tablet 1,000 mg PO BIDWMEAL 11/12/24 11/13/24 History rosuvastatin 10 mg tablet 10 mg PO DAILY 11/12/24 11/12/24 History carvedilol 12.5 mg tablet 12.5 mg PO BID 11/13/24 11/13/24 History New Prescriptions to Start Prescriptions: Allergies Allergy/AdvReac Type Severity Reaction Status Date / Time ZAIN Inhibitors AdvReac Mild Cough Verified 10/02/24 14:30 Discharge Plan Disposition Patient Disposition: Xfer Short-Term Hosp Condition: Fair Discharge Order Discharge Orders: Discharge Order (Routine); Ordered 11/13/24 Ordered By: Smooth Robles Follow up Plan Prescriptions/Medication Reconciliation: No Action Eliquis 5 mg tablet 5 mg PO BID (DME) Accu-Chek Guide test strips Strip See Rx Instructions .ROUTE .MEDSUPPLY Qty: 10 Patient Comments: USE TO check fasting state blood sugar DAILY Rx Instructions: As directed furosemide 80 mg tablet 80 mg PO DAILY PRN (Reason: Fluid) losartan 100 mg tablet 100 mg PO DAILY aspirin 325 mg Tablet 325 mg PO DAILY clopidogrel 75 mg tablet 75 mg PO DAILY rosuvastatin 10 mg tablet 10 mg PO DAILY metformin 1,000 mg tablet 1,000 mg PO BIDWMEAL carvedilol 12.5 mg tablet 12.5 mg PO BID Problem Reconciliation Problems Reviewed?: Yes Patient Discharge Instructions Stand Alone Forms: Transfer Record Patient Instructions: DI for Chest Pain Print Language: Serbian Providers Primary Care Provider: Jem Narvaez Admit Provider: Smooth Robles Attending Provider: Smooth Robles
[2024-11-13 08:00] VITALS: BP 131/81; PULSE 51; RESP 18; TEMP 36.6; O2SAT 96
[2024-11-13] MEDS: CLOPIDOGREL 75MG TAB 75 MG PO (08:08)
[2024-11-13] MEDS: ASPIRIN EC 81MG TABLET 81 MG PO (08:08)
== END 2024-11-13 09:03 | disposition short-term general hospital (02) ==
LOC: ER 15:43 → 2ND 16:25
PROVIDERS: Physician Assistant; Admitting Provider Student in an Organized Health Care Education/Training Program; Emergency Provider Emergency Medicine; PCP Internal Medicine; Visit Provider Student in an Organized Health Care Education/Training Program
DX: I25.110 Atherosclerotic heart disease of native coronary artery with unstable angina pectoris (principal); I48.92 Unspecified atrial flutter; Z79.01 Long term (current) use of anticoagulants; F17.210 Nicotine dependence, cigarettes, uncomplicated; I11.0 Hypertensive heart disease with heart failure; E11.9 Type 2 diabetes mellitus without complications; E78.5 Hyperlipidemia, unspecified; Z95.5 Presence of coronary angioplasty implant and graft; I48.91 Unspecified atrial fibrillation; Z79.82 Long term (current) use of aspirin; Z79.84 Long term (current) use of oral hypoglycemic drugs; Z79.899 Other long term (current) drug therapy; I50.30 Unspecified diastolic (congestive) heart failure; Z88.8 Allergy status to other drugs, medicaments and biological substances
CPT/HCPCS: 36415; 71045; 80053; 83690; 83735; 83880; 84484; 85025; 85610; 93005; 99291; G0378; J1940

== ENCOUNTER 2025-06-19 15:26 | Outpatient (CLI) | payer MEDICARE, SELFPAY ==
--- OUTSIDE RECORDS SUMMARY | 2025-05-13 15:30 | XMS_ITS | Encounter Summary ---
Author Organization [facility] Address [address] [place] [address] Care Team Providers Care Program Manager Name Role Phone Jem Narvaez MD Primary Care Provider [phone] Reason for Referral * Diagnostic Medical (Routine) - Authorized Specialty Diagnoses / Procedures Referred By Contac t Referred To Contact Pulmonology Diagnoses SOB (shortness of breath) Procedures Spirometry with Diffusion Capacity & Lung Volumes Smooth Hall MD [address] [place] [address] Phone: tel: fax: [facility] [address] [place] [address] Phone: tel: fax: Referral ID Status Reason Start Date Expiration Date V isits Requested Visits Authorized [id number] Authorized 05/13/2025 08/12/2026 1 1 Reason for Visit * Reason Comments Lung Nodule * Consultation (Routine) - Closed Specialty Diagnoses / Procedures Referred By Contact Referred To Contact Pulmonary Disease / Pulmonology Diagnoses Shortness of breath Pulmonary nodule seen on imaging study Hypoventilation Procedures VA OFFICE/OUTPATIENT NEW MODERATE MDM 45 MINUTES Isabel Mueller APRN [address] [place] [address] Phone: tel: fax:[phone] Lisa Olvera APRN [address] [place] [address] Phone: tel: fax: Referral ID Status Reason Start Date Expiration Date Visits Re quested Visits Authorized [id number] Closed 10/30/2024 01/29/2026 1 1 Encounter Details Date Type Department Care Team (Late st Contact Info) Description 05/13/2025 3:30 PM EDT Office Visit [facility] [address] [place] [address] Smooth Hall MD [address] [place] [address] SOB (shortness of breath) (Primary Dx); Pulmonary nodule (< 5mm); Former smoker (Stopped 2023); ASKEW (dyspnea on exertion); Chronic diastolic CHF (congestive heart failure) LVEDP 34 on [facility]; Obesity, Class III, BMI 40-49.9 (morbid obesity); JOSÉ MIGUEL (obstructive sleep apnea) - severe/untreated Social History Tobacco Use Types Packs/Day Years Used Date Smoking Tobacco: Former Cigarettes 1 50 Q uit: 2023 Passive Smoke Exposure: Current Smokeless Tobacco: Never Alcohol Use Standard Drinks/Week Comments Yes 0 (1 standard drink = 0.6 oz pur e alcohol) rarely AUDIT-C Answer Date Recorded Q1: How often do you have a drink containing alc ohol? Monthly or less 11/13/2024 Q2: How many drinks containi ng alcohol do you have on a typical day when you are drinking? 1 or 2 11/13/2024 Q3: How often do you have si x or more drinks on one occasion? Less than monthly 11/13/2024 Abuse Screen Answer Date Recorded Feels Unsafe at Home or Work/School no 11/13/2024 Feels Threatened by Someone no 10/20 Does Anyone Try to Keep You From Having Contact with Others or Doing Things Outside Your Home? no 11/13/2024 Physical Signs of Abuse Present no 11/13/2024 Housing Stability Answer Date Recorded Current Living Arrangements home 10/20 Potentially Unsafe Housing Conditions Not on beto e 11/13/2024 Disabilities Answer Date Recorded Difficulty Concentrating, Remembering or Making Decisions no 11/13/2024 Difficulty Managing Errands Independently no 11/13/2024 Sex and Gender Information Value Date Recorded Sex Assigned at Male 10/09/2024 4:59 PM EST Legal Sex Male 12:41 PM EDT Gender Identity Not on file Sexual Orientation Not on file documented as of this encounter Last Filed Vital Signs Vital Sign Reading Time Taken Comments Blood Pressure 128/84 05/13/2025 3:10 PM EDT Pulse 86 05/13/2025 3:10 PM EDT Temperature 36.8 C (98.3 F) 05/13/2025 3:10 PM EDT Respiratory Rate - - Oxygen Saturation 95% 05/13/2025 3:1 0 PM EDT resting, room air Inhaled Oxygen Concentration - - Weight 161 kg (354 lb 8 oz) 05/13/2025 3:10 PM EDT Height 188 cm (6' 2 ) 05/13/2025 3:10 PM EDT Body Mass Index 45.52 05/13/2025 3:10 PM EDT documented in this encounter Progress Notes * Smooth Hall MD - 05/13/2025 3:30 PM EDT PULMONARY NOTE Chief Complaint Former smoker, abnormal chest CT, class III morbid obesity, severe untreated obstructive sleep apnea, atrial fibrillation, chronic diastolic heart failure History of Present Illness 69-year-old male referred for abnormal chest imaging and shortness of breath He smoked up until roughly May 2024 In the past he has been prescribed an albuterol inhaler He does not use it on a regular basis He does not feel limited by shortness of breath on a regular basis although he does feel that he ismore short of breath now than he was a year ago He has chronic diastolic heart failure He has diastolic dysfunction with a markedly elevated LVEDP on a prior left heart catheterization He has chronic lower extremity edema Typically he feels that his shortness of breath and wheezing is worse when he retains fluid He has been getting annual LDCT Nothing suspicious on his May 2024 scan He had a cardiac chest CT done earlier this year A small pulmonary nodule was noted He has a history of atrial flutter for which he underwent ablation and appears to have chronic atrial fibrillation Patient Active Problem List Diagnosis Atrial flutter with controlled response JOSÉ MIGUEL (obstructive sleep apnea) - severe/untreated ASKEW (dyspnea on exertion) Bilateral leg edema Abnormal EKG Hypertension Diabetes mellitus Paroxysmal atrial fibrillation Pulmonary nodule (< 5mm) Hypoventilation Hyperlipidemia LDL goal <100 Aortic ectasia Abnormal nuclear cardiac imaging test Chronic diastolic CHF (congestive heart failure) LVEDP 34 on [facility] Obesity, Class III, BMI 40-49.9 (morbid obesity) Former smoker (Stopped 2023) Allergies Allergen Reactions Torrey Inhibitors Cough Current Outpatient Medications: Accu-Chek Guide Test test strip, USE TO check fasting state blood sugar DAILY, Disp: , Rfl: apixaban (ELIQUIS) 5 MG tablet tablet, Take 1 tablet by mouth 2 (Two) Times a Day., Disp: 140 tablet, Rfl: 0 aspirin 81 MG chewable tablet, Chew 1 tablet Daily., Disp: , Rfl: carvedilol (Coreg) 12.5 MG tablet, Take 1 tablet by mouth 2 (Two) Times a Day With Meals., Disp: 60tablet, Rfl: 6 clopidogrel (PLAVIX) 75 MG tablet, Take 1 tablet by mouth Daily., Disp: 30 tablet, Rfl: 11 furosemide (LASIX) 80 MG tablet, Take 1 tablet by mouth 2 (Two) Times a Day As Needed (swelling)., Disp: , Rfl: losartan (COZAAR) 100 MG tablet, Take 1 tablet by mouth Daily. for blood pressure, Disp: , Rfl: metFORMIN (GLUCOPHAGE) 500 MG tablet, , Disp: , Rfl: nitroglycerin (NITROSTAT) 0.4 MG SL tablet, Place 1 tablet under the tongue as needed for angina may repeat every 5 minutes for up three doses., Disp: 25 tablet, Rfl: 1 potassium chloride ER (K-TAB) 20 MEQ tablet controlled-release ER tablet, TAKE ONE TABLET BY MOUTH EVERY DAY NEEDED take with NEEDED furosemide, Disp: , Rfl: rosuvastatin (CRESTOR) 10 MG tablet, Take 1 tablet by mouth Daily., Disp: 90 tablet, Rfl: 1 spironolactone (ALDACTONE) 25 MG tablet, Take 1 tablet by mouth Daily., Disp: 30 tablet, Rfl: 11 No current facility-administered medications for this visit. MEDICATION LIST AND ALLERGIES REVIEWED. No family history on file. Social History Tobacco Use Smoking status: Former Current packs/day: 0.00 Average packs/day: 1 pack/day for 50.0 years (50.0 ttl pk-yrs) Types: Cigarettes Quit date: 2023 Years since quittin.7 Passive exposure: Current Smokeless tobacco: Never Vaping Use Vaping status: Never Used Substance Use Topics Alcohol use: Yes Comment: rarely Drug use: Not Currently Types: Marijuana Social History Social History Narrative Stopped smoking May 2024 FAMILY AND SOCIAL HISTORY REVIEWED. Review of Systems IF PRESENT REFER TO SCANNED ROS SHEET FROM SAME DATE OTHERWISE ROS OBTAINED AND NON-CONTRIBUTORY OVER HPI. BP 128/84 Pulse 86 Temp 98.3 ??F (36.8 ??C) Ht 188 cm (74 ) Wt (!) 161 kg (354 lb 8 oz) SpO2 95% Comment: resting, room air BMI 45.52 kg/m?? Physical Exam Vitals and nursing note reviewed. Constitutional: General: He is not in acute distress. Appearance: He is well-developed. He is not diaphoretic. HENT: Head: Normocephalic and atraumatic. Neck: Thyroid: No thyromegaly. Cardiovascular: Rate and Rhythm: Normal rate and regular rhythm. Heart sounds: Normal heart sounds. No murmur heard. Pulmonary: Effort: Pulmonary effort is normal. Breath sounds: Normal breath sounds. No stridor. Musculoskeletal: Comments: Chronic venous stasis changes and lower extremity edema Lymphadenopathy: Cervical: No cervical adenopathy. Upper Body: Right upper body: No supraclavicular or epitrochlear adenopathy. Left upper body: No supraclavicular or epitrochlear adenopathy. Skin: General: Skin is warm and dry. Neurological: Mental Status: He is alert. Psychiatric: Behavior: Behavior normal. Results Low-dose CT scans of the chest from his outside hospital as well as CT coronary angiogram reviewed on PACS A few small pulmonary nodules, all less than 5 mm in size PFTs reviewed. Cannot exclude airway obstruction with normalization of FEV1/FEV ratio following bronchodilator No restriction and a reduced diffusion capacity that corrects to normal when adjusted for alveolar volume Immunization History Administered Date(s) Administered COVID-19 (MODERNA) 12YRS+ (SPIKEVAX) 08/31/2023 COVID-19 (MODERNA) 1st,2nd,3rd Dose Monovalent 10/21/2020, 11/18/2020 COVID-19 (MODERNA) Monovalent Original Booster 06/30/2021, 03/23/2022 Fluad Quad 65+ 06/30/2021, 05/17/2022, 06/08/2023 Fluzone (or Fluarix & Flulaval for VFC) >6mos 06/18/2020 Fluzone High-Dose 65+YRS 08/12/2024 PPD Test 09/30/2002, 06/29/2004 Shingrix 06/08/2023, 08/31/2023 Problem List ICD-10-CM ICD-9-CM 1. SOB (shortness of breath) R06.02 786.05 2. Pulmonary nodule (< 5mm) R91.1 793.11 3. Former smoker (Stopped 2023) Z87.891 V15.82 4. ASKEW (dyspnea on exertion) R06.09 786.09 5. Chronic diastolic CHF (congestive heart failure) LVEDP 34 on [facility] I50.32 428.32 428.0 6. Obesity, Class III, BMI 40-49.9 (morbid obesity) E66.813 278.01 7. JOSÉ MIGUEL (obstructive sleep apnea) - severe/untreated G47.33 327.23 Discussion We reviewed his chest imaging and his test results He has small pulmonary nodules on chest imaging Gave him literature on pulmonary nodules and management guidelines Based on Fleischner Society guidelines I would recommend continued annual LDCT screening I would recommend a full LDCT in May 2025 I will see him back after that scan We reviewed his PFTs He could have underlying asthma, difficult to tell from the spirometry changes I have recommend that he continue to use albuterol on an as needed basis We discussed the long-term consequences of untreated sleep apnea He had very severe obstructive sleep apnea with an AHI of 85 That is going to have negative consequences on things such as blood pressure control, heart failure, etc. I have encouraged him to talk with about another trial of JOSÉ MIGUEL treatment or other options If he cannot tolerate treatment for JOSÉ MIGUEL directly then he probably would benefit from nocturnal oxygen supplementation He has chronic diastolic heart failure I gave him information from his prior heart catheterizations and patient information on diastolic dysfunction Obviously weight loss and a regular exercise program would be beneficial I encouraged his smoking cessation efforts I will see him back after his CT scan of the chest in May Level of service justified based on 65 minutes spent in patient care on this date of service including, but not limited to: preparing to see the patient, obtaining and/or reviewing history, performing medically appropriate examination, ordering tests/medicine/procedures, independently interpreting r esults, documenting clinical information in EHR, and counseling/education of patient/family/caregiver (excluding time spent on other separate services such as performing procedures or test interpretation, if applicable). (Level 4 45-59 minutes; Level 5 60-74 minutes) Smooth Hall MD Note electronically signed CC: Jem Narvaez MD documented in this encounter Plan of Treatment Upcoming Encounters Date Type Department Care Team (Late st Contact Info) Description 07/21/2025 3:00 PM EST Office Visit [facility] [address] [place] [address] Diane Kim MD [address] [place] [address] 08/05/2025 2:30 PM EST Office Visit [facility]INE [address] [place] [address] Lissette Pike APRN [address] [place] [address] documented as of this encounter Procedures Procedure Name Priority Date/Time Associated Diagnosis Comments PULMONARY FUNCTION TEST Routine 05/13/2025 3:25 PM EDT SOB (shortness of breath) documented in this encounter Results * Spirometry with Diffusion Capacity & Lung Volumes (05/13/2025 3:25 PM EDT) us Smooth Hall MD PFT ORDERABLES Final R esult documented in this encounter Visit Diagnoses Diagnosis SOB (shortness of breath)- Primary Shortness of breath Pulmonary nodule (< 5mm) Other diseases of lung, not elsewhere classified Former smoker (Stopped 2023) Personal history of tobacco use, presenting hazards to health ASKEW (dyspnea on exertion) Other dyspnea and respiratory abnormality Chronic diastolic CHF (congestive heart failure) LVEDP 34 on [facility] Obesity, Class III, BMI 40-49.9 (morbid obesity) JOSÉ MIGUEL (obstructive sleep apnea) - severe/untreated Obstructive sleep apnea (adult) (pediatric) documented in this encounter Administered Medications Inactive Administered Medications - up to 3 most recent administrations Medication Order MAR Action Action Date Dose Rate Site levalbuterol (XOPENEX HFA) inhaler 3 puff 3 puff, Inhalation, Once, On Mon05/13/25 at 1527, For 1 dose, (SP)Indications:SOB (shortness of breath) Given 05/13/2025 3:25 PM EDT 3 puffs Chest documented in this encounter Care Teams Program Manager Relationship Specialty Start Date End Date Jem Narvaez MD [address] [place] [address] [address] [place] [address] PCP - General Internal Medicine 03/26/24 documented as of this encounter
--- NOTE | 2025-06-19 15:29 | XR_ITS ---
FINAL REPORT CLINICAL HISTORY: Increasing left knee pain, DJD COMPARISON: None FINDINGS: Two views of the left knee were obtained. There is no acute fracture or dislocation. The joint spaces are intact. There is no soft tissue abnormality. IMPRESSION: No acute bony abnormality. Reviewed, Interpreted and Dictated by Ru Hernandez MD Transcribed by Patricia Schmitt Authenticated and [facility]
--- OUTSIDE RECORDS SUMMARY | 2025-06-19 15:30 | XMS_ITS | Encounter Summary ---
[facility] Organization [facility] Address [address] [place] [address] Care Team Providers Care Golf Course Laborer Name Role Phone Jem Narvaez MD Primary Care Provider [phone] Encounter Details Date Type Department Care Team (Late st Contact Info) Description 05/13/2025 Patient rounding ([facility] [facility] [address] [place] [phone] Ermias Angeles RegSched Rep Social History Tobacco Use Types Packs/Day Years [...] on file documented as of this encounter Progress Notes * Ermias Angeles RegSched Rep - 05/13/2025 3:43 PM EDT May 13, 2025 Mary, december I speak with Luis Thurmannoah? My name is ERMIAS I am with [facility] [address] [place] [phone] . Before we get started december I verify your date of ? 1955 I am calling to officially welcome you to our practice and ask about your recent visit. Is this a good time to talk? yes Tell me about your visit with us. What things went well? PATIENT STATED THAT HIS APPOINTMENT WENT WELL AND HE WAS PLEASED WITH THE EXPERIENCE. OVERALL, HE HAD NO COMPLAINTS OR SUGGESTIONS. We're always looking for ways to make our patients' experiences even better. Do you have recommendations on ways we may improve? no Overall were you satisfied with your first visit to our practice? yes I appreciate you taking the time to speak with me today. Is there anything else I can do for you? no Thank you, and have a great day. documented in this encounter Plan of Treatment Upcoming Encounters Date Type Department Care Team (Late st Contact Info) Description 07/21/2025 3:00 PM EST Office Visit [facility] [address] [place] [address] Diane Kim MD [address] [place] [address] 08/05/2025 2:30 PM EST Office Visit [facility] [address] [place] [address] Lissette Pike, DISPATCHER CLERK [address] [place] [address] documented as of this encounter Visit Diagnoses Not on filedocumented in this encounter Care Teams Golf Course Laborer Relationship Specialty Start Date End Date Jem Narvaez MD [address] [facility] [address] [place] [address] PCP - General Internal Medicine 03/26/24 documented as of this encounter
--- OUTSIDE RECORDS SUMMARY | 2025-06-19 15:30 | XMS_ITS | Encounter Summary ---
[facility] Address [address] [place] [id number] Care Team Providers Care Bobbin Marker Name Role Phone Jem Narvaez MD Primary Care Provider [phone] Encounter Details Date Type Department Care Team (Late st Contact Info) Description 10/28/2024 Results Follow-Up [facility] [address] [place] [phone] Ewa Aly RegSched Rep Social History Tobacco Use Types Packs/Day Years Used Date Smoking Tobacco: Former Cigarettes Q uit: 1975 Passive Smoke Exposure: Current Smokeless Tobacco: Never Alcohol Use Standard Drinks/Week Comments Yes 0 (1 standard drink = 0.6 oz pur e alcohol) social Sex and Gender Information Value Date Recorded Sex Assigned at Male 10/09/2024 4:59 PM EST Legal Sex Male 12:41 PM EDT Gender Identity Not on file Sexual Orientation Not on file documented as of this encounter Miscellaneous Notes * Telephone Encounter - Ewa Aly MA - 10/28/2024 1:19 PM EDT Attempted to call patient. Someone answered but then line was disconnected. Will try to call again later. * Telephone Encounter - Ewa Ayl MA - 10/28/2024 1:19 PM EDT ----- Message from Jazlyn Torres sent at 10/28/2024 12:56 PM EDT ----- Can we see if we can move his appointment up to discuss his results, please? ----- Message ----- From: Diego Vega MD Sent: 10/25/2024 5:49 PM EDT To: Jazlyn Torres APRN documented in this encounter Plan of Treatment Upcoming Encounters Date Type Department Care Team (Late st Contact Info) Description 07/21/2025 3:00 PM EST Office Visit [facility] [address] [place] [phone] Diane Kim MD [address] [place] [address] 08/05/2025 2:30 PM EST Office Visit [facility] [address] [facility] [place] [address] Lissette Pike APRN [address] [place] [address] documented as of this encounter Visit Diagnoses Not on filedocumented in this encounter Care Teams Bobbin Marker Relationship Specialty Start Date End Date Jem Narvaez MD [address] [place] [address] [place] [address] PCP - General Internal Medicine 03/26/24 documented as of this encounter
--- OUTSIDE RECORDS SUMMARY | 2025-06-19 15:30 | XMS_ITS | Referral Summary ---
Author Organization [facility] ([place] Address [address] [place] [address] Care Team Providers Care Aged Or Disabled Carer Name Role Phone Unavailable Primary Care Provider Unavailabl e Social History Tobacco Use Types Packs/Day Years Used Date Smoking Tobacco: Never Assessed Sex and Gender Information Value Date Recorded Sex Assigned at Not on file Legal Sex Male 9:08 PM CDT Gender Identity Not on file Sexual Orientation Not on file Plan of Treatment Not on file
--- OUTSIDE RECORDS SUMMARY | 2025-06-19 15:30 | XMS_ITS | Clinical Summary ---
Author Organization [facility] ([place], [place], [place], [place]) Address [address] [place] [address] Care Team Providers Care Boiler Operators Supervisor Name Role Phone Unavailable Primary Care Provider [...]
--- OUTSIDE RECORDS SUMMARY | 2025-06-19 15:30 | XMS_ITS | Encounter Summary ---
[facility] Organization [facility] Address [address] [place] [address] Care Team Providers Care Delinquency Prevention Officer Name Role Phone Jem Narvaez MD Primary Care Provider [phone] Encounter Details Date Type Department Care Team (Late st Contact Info) Description 03/20/2025 Results Follow-Up [facility] [place] [address] [facility] [address] [place] [address] Diane Kim MD [address] [place] [address] Social History Tobacco Use Types Packs/Day Years [...] on file documented as of this encounter Plan of Treatment Upcoming Encounters Date Type Department Care Team (Late st Contact Info) Description 07/21/2025 3:00 PM EST Office Visit [facility] [address] [place] [phone] Diane Kim MD [address] [place] [address] 08/05/2025 2:30 PM EST Office Visit [facility] [address] [facility] [place] [address] Lissette Pike, PAINT SPRAYER SANDBLASTER [address] [place] [address] documented as of this encounter Visit Diagnoses Not on filedocumented in this encounter Care Teams Delinquency Prevention Officer Relationship Specialty Start Date End Date Jem Narvaez MD [address] [facility] [address] [facility] [address] [place] [address] PCP - General Internal Medicine 03/26/24 documented as of this encounter
--- OUTSIDE RECORDS SUMMARY | 2025-06-19 15:30 | XMS_ITS | Encounter Summary ---
Author Organization [facility] Address [address] [place] [address] Care Team Providers Care Baseball Sewer Hand Name Role Phone Jem Narvaez MD Primary Care Provider [phone] Reason for Visit * Reason Onset Date Comments Med Refill 04/29/2025 Encounter Details Date Type Department Care Team (Late st Contact Info) Description 04/29/2025 Refill [facility] [address] [place] [address] Diane Kim MD [address] [place] [address] Med Refill Social History Tobacco Use Types Packs/Day Years [...] Description 07/21/2025 3:00 PM EST Office Visit [facility] [address] [place] [address] Diane Kim MD [address] [place] [address] 08/05/2025 2:30 PM EST Office Visit [facility] [address] [place] [address] Lissette Pike, LAYLA [address] [place] [address] documented as of this encounter Visit Diagnoses Not on filedocumented in this encounter Care Teams Baseball Sewer Hand Relationship Specialty Start Date End Date Jem Narvaez MD [address] [facility] [address] [place] [address] PCP - General Internal Medicine 03/26/24 documented as of this encounter
--- OUTSIDE RECORDS SUMMARY | 2025-06-19 15:30 | XMS_ITS | Clinical Summary ---
Author Organization [facility] Address [address] [place] [address] Care Team Providers Care Caustic Room Operator Name Role Phone Jem Narvaez MD Primary Care Provider [phone] Allergies Active Allergy Reactions Criticality Noted Date Comments Torrey Inhibitors Cough Low 05/01/2020 Medications losartan (COZAAR) 100 MG tablet Take 1 tablet by mouth Daily. for blood pressure 4 Active furosemide (LASIX) 80 MG tablet Take 1 tablet by mouth 2 (Two) Times a Day As Needed (swelling). Active rosuvastatin (CRESTOR) 10 MG tablet Take 1 tablet by mouth Daily. 90 tablet 1 5 Active clopidogrel (PLAVIX) 75 MG tablet Take 1 tablet by mouth Daily. 30 tablet 11 11/05/2024 11:38 AM EDT 5 Active aspirin 81 MG chewable tablet Chew 1 tablet Daily. 5 Active nitroglycerin (NITROSTAT) 0.[address] 1 tablet under the tongue as needed for angina may repeat every 5 minutes for up three doses. 25 tablet 1 11/13/2024 2:31 PM EDT 5 Active carvedilol (Coreg) 12.5 MG tablet Take 1 tablet by mouth 2 (Two) Times a Day With Meals. 60 tablet 6 5 Active metFORMIN (GLUCOPHAGE) 500 MG tablet 5 Active spironolactone (ALDACTONE) 25 MG tabletIndicatio ns:Shortness of breath,Swelling of lower extremity Take 1 tablet by mouth Daily. 30 tablet 11 5 Active Accu-Chek Guide Test test strip USE TO check fasting state blood sugar DAILY 5 Active potassium chloride ER (K-TAB) 20 MEQ tablet controlled-rele ase ER tablet TAKE ONE TABLET BY MOUTH EVERY DAY NEEDED take with NEEDED furosemide 5 Active apixaban (ELIQUIS) 5 MG tablet tablet Take 1 tablet by mouth 2 (Two) Times a Day. 140 tablet 5 Active Active Problems Problem Noted Date Diagnosed Date Chronic diastolic CHF (conge stive heart failure) LVEDP 34 on [facility] 05/13/2025 Obesity, Class III, BMI 40-49.9 (morbid obesity) 05/13/2025 Former smoker (Stopped 2023) 05/13/2025 Paroxysmal atrial fibrillation 10/30/2024 Overview (10/30/2024): Circ2018 Sleep Study-Severe JOSÉ MIGUEL AHI 85 04/03/2024 - Presented as a new patient with known history of atrial flutter s/p ablation. 04/16/2024 Holter- 100% afib. NEW DIAGNOSIS 06/19/2024 - New DX Afib; ischemia work-up ordered 06/2024 Nuclear Stress test-though his stress test is technically intermediate risk, I think without symptoms his risk of OK is overall low. I think his SOA is related to weight and low activity level as well as smoking. Will monitor symptoms because there is an area on his stress test that is unlikely to be clinically significant but if symptoms worsen or change it may warrant further work up. 10/24/24 Abnormal CCTA -Continue Eliquis -Continue BB for atrial flutter, Atrial Fibrillation, and abnormal CCTA -Eliquis samples given -Check [facility] for ischemia Assessment & Plan (10/30/2024 11:20 PM EDT): Circ2018 Sleep Study-Severe JOSÉ MIGUEL AHI 85 04/03/2024 - Presented as a new patient with known history of atrial flutter s/p ablation. 04/16/2024 Holter- 100% afib. NEW DIAGNOSIS 06/19/2024 - New DX Afib; ischemia work-up ordered 06/2024 Nuclear Stress test-though his stress test is technically intermediate risk, I think without symptoms his risk of OK is overall low. I think his SOA is related to weight and low activity level as well as smoking. Will monitor symptoms because there is an area on his stress test that is unlikely to be clinically significant but if symptoms worsen or change it may warrant further work up. 10/24/24 Abnormal CCTA -Continue Eliquis -Continue BB for atrial flutter, Atrial Fibrillation, and abnormal CCTA -Eliquis samples given -Check [facility] for ischemia Pulmonary nodule (< 5mm) 10/30/2024 Overview (10/30/2024): -Abnormal CCTA; lung nodules and hypoventilation seen -Check [facility] and refer to pulmonary Assessment & Plan (10/30/2024 11:10 PM EDT): -Abnormal CCTA; lung nodules and hypoventilation seen -Check [facility] and refer to pulmonary Hypoventilation 10/30/2024 Overview (10/30/2024): -Abnormal CCTA; lung nodules and hypoventilation seen -Check LHC and refer to pulmonary Assessment & Plan (10/30/2024 11:11 PM EDT): -Abnormal CCTA; lung nodules and hypoventilation seen -Check [facility] and refer to pulmonary Hyperlipidemia LDL goal <100 10/30/2024 Assessment & Plan (10/30/2024 11:17 PM EDT): 07/18/2024 Labs- Cholesterol 215, HDL 30, LDL 116 -May update LDL goal after LHC -Refuses high dose statin for DM, but said with abnormal stress AND CCTA he will start the most recent low dose statin he has at home. He has been offered/prescribed a statin on several occasions but has never started one -He is concerned it will cause him myalgias. We agreed he will stop it immediately if he has any pain with it and then we could try Zetia and maybe even Repatha. Aortic ectasia 10/30/2024 Overview (10/30/2024): 10/24/24-Atherosclerotic disease of the descending thoracic aorta with ectasia of the ascending thoracic aorta measuring 4 cm seen on CCTA. Assessment & Plan (10/30/2024 11:25 PM EDT): 10/24/24-Atherosclerotic disease of the descending thoracic aorta with ectasia of the ascending thoracic aorta measuring 4 cm seen on CCTA. Abnormal nuclear cardiac imaging test 10/30/2024 Atrial flutter with controlled response 04/03/20 24 Overview (10/30/2024): 04/03/2024 - Presented as a new patient with known history of atrial flutter s/p ablation. Assessment & Plan (10/30/2024 11:08 PM EDT): 04/03/2024 - Presented as a new patient with known history of atrial flutter s/p ablation. Subsequently diagnosed with atrial fibrillation on 04/16/2024. Appears rate controlled. On Eliquis. -Continue Eliquis -Continue BB for atrial flutter, Atrial Fibrillation, and abnormal CCTA Assessment & Plan (10/10/2024 1:50 PM EST): Rate controlled. Continue carvedilol 12.5 mg 2 times daily. Assessment & Plan (10/02/2024 12:45 PM EST): Increasing carvedilol to 12.5 mg twice daily Assessment & Plan (09/04/2024 6:14 PM EST): Carvedilol should help some. Orders: carvedilol (COREG) 3.125 MG tablet; Take 1 tablet by mouth 2 (Two) Times a Day. Assessment & Plan (07/30/2024 12:48 PM EST): Not addressed today but samples given Assessment & Plan (04/03/2024 12:26 PM EDT): EKG shows atrial flutter with a rate of 57 bpm. Currently asymptomatic. He was previously taking Eliquis but stopped several years ago due to the monthly cost. He understands the risk and benefits of anticoagulation and is willing to restart. We will work on financial assistance paperwork and provide samples today to get him restarted on therapy. - Restart Eliquis 5 mg twice daily - Continue diltiazem at current dose - 5-day Holter monitor JOSÉ MIGUEL (obstructive sleep apnea) - severe/untreated 04/03/2024 Overview (10/30/2024): Circa 2018 Sleep Study-Severe JOSÉ MIGUEL AHI 85; Intolerant to CPAP Assessment & Plan (10/30/2024 11:06 PM EDT): Circa 2018 Sleep Study-Severe JOSÉ MIGUEL AHI 85; Intolerant to CPAP Atrial fibrillation is likely related Assessment & Plan (06/19/2024 5:55 PM EDT): Intolerant to PAP therapy. Discussed that A-fib is likely sleep apnea related. Assessment & Plan (04/03/2024 12:26 PM EDT): He has a history of severe JOSÉ MIGUEL with a baseline AHI of 85 on a home sleep study over 5 years ago. He reports that he tried using a CPAP multiple different times in the past but was unable to tolerate it. He felt like he was smothering with it on. Pressures were adjusted several times and he tried multiple different masks. He was unable to tolerate any of them. He reports excessive daytime sleepiness and fatigue. He sometimes wakes up with a severe headache. He would like to retry PAP therapy but unable to tolerate CPAP. He would likely benefit from a BiPAP and is agreeable to a titration study. - Titration study ASKEW (dyspnea on exertion) 04/03/2024 Assessment & Plan (10/30/2024 11:10 PM EDT): -Abnormal CCTA; lung nodules and hypoventilation seen -Check [facility] and refer to pulmonary Assessment & Plan (10/10/2024 1:53 PM EST): According to our records patient is down 16 pounds. Patient reports he has been taking his furosemide on a daily basis to help control the edema. He reports that this is not helped with the shortness of breath. He continues to be short of breath with exertion and with lying flat. He reports that he feels like he cannot breathe at all when he lays flat. Assessment & Plan (10/02/2024 12:46 PM EST): 10 pound weight gain. Using compressions. +1 pitting edema at top of compressions. Restart Lasix whole pill daily. Recheck in a couple days. Assessment & Plan (07/30/2024 1:54 PM EST): Edited to clarify - though his stress test is technically intermediate risk, I think without symptoms his risk of OK is overall low. I think his SOA is related to weight and low activity level as well as smoking. Will monitor symptoms because there is an area on his stress test that is unlikely to be clinically significant but if symptoms worsen or change it may warrant further work up. Assessment & Plan (06/19/2024 5:55 PM EDT): May be related to deconditioning. Could be anginal equivalent. Will assess on stress testing. Assessment & Plan (04/03/2024 12:22 PM EDT): Patient reports worsening shortness of breath and fatigue. EKG today abnormal with evidence of lateral infarct. - Proceed with cardiac workup Bilateral leg edema 04/03/2024 Assessment & Plan (10/10/2024 1:53 PM EST): According to our records patient is down 16 pounds. Patient reports he has been taking his furosemide on a daily basis to help control the edema. He reports that this is not helped with the shortness of breath. He continues to be short of breath with exertion and with lying flat. He reports that he feels like he cannot breathe at all when he lays flat. Assessment & Plan (10/02/2024 12:45 PM EST): 10 pound weight gain. Using compressions. +1 pitting edema at top of compressions. Restart Lasix whole pill daily. Recheck in a couple days. Assessment & Plan (07/12/2024 8:28 PM EST): Stable. Will continue current regiment. Assessment & Plan (04/03/2024 12:22 PM EDT): Currently stable. Patient takes Lasix and potassium as needed. Abnormal EKG 04/03/2024 Assessment & Plan (10/10/2024 1:55 PM EST): EKG today shows atrial fibrillation with rate control with 71 bpm right bundle branch block, left anterior fascicular block. Nuclear stress 07/08/2024 showed intermediate risk study LVEF 70%. Perfusion imaging indicated a moderate-sized area of ischemia located in the lateral wall. Plan coronary CTA with FFR. Assessment & Plan (04/03/2024 12:19 PM EDT): EKG today shows atrial flutter with a rate of 57bpm. Right bundle branch block and lateral infarct, probably recent. -Stress echo rule out ischemia. Hypertension Assessment & Plan (10/10/2024 1:54 PM EST): Hypertension is stable and controlled Continue current treatment regimen. Blood pressure will be reassessed next scheduled follow-up . Assessment & Plan (10/02/2024 12:46 PM EST): At goal today but he took for carvedilol 3.125 mg pills this morning. Will increase to 25 mg twice daily and recheck in a few days. Assessment & Plan (09/04/2024 6:14 PM EST): Stopping diltiazem, start low dose coreg. Stopping spironolactone as well. Orders: carvedilol (COREG) 3.125 MG tablet; Take 1 tablet by mouth 2 (Two) Times a Day. Assessment & Plan (07/30/2024 12:47 PM EST): In the ER his kidney function was elevated and lactic acid was elevated. BP was low but most likely related to dehydration. Troponin was normal. Echo (per patient) was normal. His Cardizem, Losartan, and Spirolactone were stopped. When he got home his blood pressure started going back up, so he restarted his Losartan and plans to restart his Spirolactone. He has not restarted Cardizem. He would like to see what Dr. Kim wants him to do regarding his medications. Since coming home he has not had any issues other than his blood pressure increasing. Hence him restarting some of the meds as noted above. At patient request, I will reach out to Dr. Kim regarding meds and to see when she would like for us to see him back. Ok to send a [employer] message. Advised that most likely his PRN 80mg Lasix that he takes 1-2 times a month with be decreased. Diabetes mellitus Assessment & Plan (10/30/2024 11:13 PM EDT): -Stopped Metformin and Ozempic on his own -Blood sugar around 170 -A risk factor for CAD -Refuses high dose statin but willing to try low dose that he has at home -Encourage him to reach out to PCP for other medication options for blood sugar Resolved Problems Problem Noted Date Diagnosed Date Resolved Date Hospital discharge follow-up 07/30/2024 10/30/2024 Assessment & Plan (07/30/2024 12:47 PM EST): [facility] ER note, hospital note, labs, and imaging reviewed. Encounters Date Type Department Care Team Description 05/13/2025 3:30 PM EDT Office Visit [facility] [address] [place] [address] Smooth Hall MD SOB (shortness of breath) (Primary Dx); Pulmonary nodule (< 5mm); Former smoker (Stopped 2023); ASKEW (dyspnea on exertion); Chronic diastolic CHF (congestive heart failure) LVEDP 34 on [facility]; Obesity, Class III, BMI 40-49.9 (morbid obesity); JOSÉ MIGUEL (obstructive sleep apnea) - severe/untreated 05/13/2025 Patient rounding ([facility] [place] [facility] [address] [place] [address] Analy Angeles RegSched Rep 05/13/2025 Travel 04/29/2025 Refill [facility] [address] [place] [address] Diane Kim MD Med Refill 03/20/2025 Results Follow-Up [facility] [place] [address] [facility] [address] [place] [address] Diane Kim MD 03/19/2025 2:30 PM EDT Lab [facility] [place] [address] [place] [address] Chronic atrial fibrillation; Shortness of breath; Type 2 diabetes mellitus without complication, without long-term current use of insulin; Hyperlipidemia LDL goal <100; Encounter for screening for malignant neoplasm of prostate from Last 3 Months Immunizations Immunization Administration Dates Next Due Fluad Quad 65+ 06/08/2023,05/17/2022,06/30/2021 Fluzone (or Fluarix & Flulav al for VFC) >6mos 06/18/2020 Fluzone High-Dose 65+YRS 08/12/2024 PPD Test 06/29/2004,09/30/2002 Shingrix 08/31/2023,06/08/2023 Family History Relation Name Status Comments Brother 67 Father Mother 89 Alive Sister 71 Social History Tobacco Use Types Packs/Day Years [...] on file Sexual Orientation Not on file Last Filed Vital Signs Vital Sign Reading Time Taken Comments Blood Pressure 128/84 05/13/2025 3:10 PM EDT Pulse 86 05/13/2025 3:10 PM EDT Temperature 36.8 C (98.3 F) 05/13/2025 3:10 PM EDT Respiratory Rate 14 11/13/2024 1:50 PM EDT Oxygen Saturation 95% 05/13/2025 3:1 0 PM EDT resting, room air Inhaled Oxygen Concentration - - Weight 161 kg (354 lb 8 oz) 05/13/2025 3:10 PM EDT Height 188 cm (6' 2 ) 05/13/2025 3:10 PM EDT Body Mass Index 45.52 05/13/2025 3:10 PM EDT Plan of Treatment Upcoming Encounters Date Type Department Care Team (Late st Contact Info) Description 07/21/2025 3:00 PM EST Office Visit [facility] [address] [address] Diane Kim MD [address] [place] [address] 08/05/2025 2:30 PM EST Office Visit [facility] [address] [place] [address] Lissette Pike, INSURANCE PREMIUM AUDITOR [address] [place] [address] Health Maintenance Due Date Last Done Comments DIABETIC EYE EXAM 1965 DIABETIC FOOT EXAM 1965 URINE MICROALBUMIN-CREATININ E RATIO (uACR) 1965 Pneumococcal Vaccine 50+ (1 of 2 - PCV) 1974 TDAP/TD VACCINES (1 - Tdap) 1974 COLOGUARD 2000 COLON CANCER SCREENING 5 YEA R SIGMOIDOSCOPY 2000 COLONOSCOPY 2000 COL[address]ECTAL CANCER SCREENING 2000 CT COLONOGRAPHY 2000 FECAL OCCULT BLOOD TEST 2000 FIT Testing (1 year) 2000 LUNG CANCER SCREENING 2005 AAA SCREEN ONCE 2020 ANNUAL WELLNESS VISIT 03/28/2024 HEPATITIS C SCREENING 03/28/2024 INFLUENZA VACCINE 03/21/2025 08/12/2024, , 05/17/2022, Additional history exists COVID-19 Vaccine (2024-2 6 season) 2025 08/31/2023, 03/23/2022, 06/30/2021, Additional history exists HEMOGLOBIN A1C 09/19/2025 03/19/2025, 10/19, 09/04/2024 LIPID PANEL 03/19/2026 03/19/2025, 11/05/2024 ZOSTER VACCINE Completed 08/31/2023, 06/08/2023 Medical Devices Implanted Type Area Information Security Engineer Device Identifier Shelf Expiration Date Model / Serial / Lot Stnt Cornry Rx Xience/Skypoi nt Rapdxng 2.5x48mm - [id number] Implanted:Qty : 1 on 11/05/2024 by Cirilo Bunch MD at [facility] Coronary NERI VASCULAR [id number] / / [id number] Stnt Cornry Rx Xience/Skypoi nt Rapdxng 3.5x23mm - [id number] Implanted:Qty : 1 on 11/05/2024 by Cirilo Bunch MD at [facility] N/A: Coronary NERI VASCULAR [id number] / / [id number] Stnt Cornry Rx Xience/Skypoi nt Rapdxng 3.5x12mm - [id number] Implanted:Qty : 1 on 11/13/2024 by Jomar Monroy MD at [facility] N/A: Coronary NERI VASCULAR 04/24/2026 [id number] / / [id number] Procedures Procedure Name Priority Date/Time Associated Diagnosis Comments PULMONARY FUNCTION TEST Routine 05/13/2025 3:25 PM EDT SOB (shortness of breath) CBC AND DIFFERENTIAL Routine 03/19/2025 2:36 PM EDT Chronic atrial fibrillation Shortness of breath Type 2 diabetes mellitus without complication, without long-term current use of insulin Hyperlipidemia LDL goal <100 CBC WITH AUTO DIFFERENTIAL Routine 03/19/2025 2:36 PM EDT Chronic atrial fibrillation Shortness of breath Type 2 diabetes mellitus without complication, without long-term current use of insulin Hyperlipidemia LDL goal <100 PROBNP Routine 03/19/2025 2:36 PM EDT Chronic atrial fibrillation Shortness of breath Type 2 diabetes mellitus without complication, without long-term current use of insulin Hyperlipidemia LDL goal <100 LIPID PANEL Routine 03/19/2025 2:36 PM EDT Chronic atrial fibrillation Shortness of breath Type 2 diabetes mellitus without complication, without long-term current use of insulin Hyperlipidemia LDL goal <100 PSA SCREEN Routine 03/19/2025 2:36 PM EDT Chronic atrial fibrillation Shortness of breath Type 2 diabetes mellitus without complication, without long-term current use of insulin Hyperlipidemia LDL goal <100 Encounter for screening for malignant neoplasm of prostate COMPREHENSIVE METABOLIC PANEL Routine 03/19/2025 2:36 PM EDT Chronic atrial fibrillation Shortness of breath Type 2 diabetes mellitus without complication, without long-term current use of insulin Hyperlipidemia LDL goal <100 HEMOGLOBIN A1C Routine 03/19/2025 2:36 PM EDT Chronic atrial fibrillation Shortness of breath Type 2 diabetes mellitus without complication, without long-term current use of insulin Hyperlipidemia LDL goal <100 MAGNESIUM Routine 03/19/2025 2:36 PM EDT Chronic atrial fibrillation Shortness of breath Type 2 diabetes mellitus without complication, without long-term current use of insulin Hyperlipidemia LDL goal <100 from Last 3 Months Results * Spirometry with Diffusion Capacity & Lung Volumes (05/13/2025 3:25 PM EDT) us Smooth Hall MD PFT ORDERABLES Final R esult * PSA Screen (03/19/2025 2:36 PM EDT) PSA 0.266 0.000 - 4.000 ng/mL 03/20/2025 12:03 AM EDT [facility] Blood Venipuncture / Unknown 03/19/2025 2:36 PM EDT 03/19/2025 2:36 PM EDT [facility] - 03/20/2025 12:03 AM EDT Testing Method: [employer] Electrochemiluminescence Immunoassay(ECLIA) Values obtained with different assay methods or kits cannot be used interchangeably. us Diane Kim MD LAB BLOOD ORDERABLES Final R esult [facility]
[address] [place] [address], * proBNP (03/19/2025 2:36 PM EDT) proBNP 184.0 0.0 - 900.0 pg/mL 03/20/2025 12:03 AM EDT [facility] Blood Venipuncture / Unknown 03/19/2025 2:36 PM EDT 03/19/2025 2:36 PM EDT [facility] - 03/20/2025 12:03 AM EDT This assay is used as an aid in the diagnosis of individuals suspected of having heart failure. It can be used as an aid in the diagnosis of acute decompensated heart failure (ADHF) in patients presenting with signs and symptoms of ADHF to the emergency department (ED). In addition, NT-proBNP of <300 pg/mL indicates ADHF is not likely. Age Range Result Interpretation NT-proBNP Concentration (pg/mL: <50 Positive >450 Aldrich 300-450 Negative <300 50-75 Positive >900 Aldrich 300-900 Negative <300 >75 Positive >1800 Aldrich 300-1800 Negative <300 Diane Kim MD LAB BLOOD ORDERABLES Final R esult [facility]
[address] [place] [address], * (ABNORMAL) CBC Auto Differential (03/19/2025 2:36 PM EDT) WBC 8.00 3.40 - 10.80 10*3/mm3 03/19/2025 11:32 PM EDT [facility] RBC 4.29 4.14 - 5.80 10*6/mm3 03/19/2025 11:32 PM EDT [facility] Hemoglobin 13.5 13.0 - 17.7 g/dL 03/19/2025 11:32 PM EDT [facility] Hematocrit 40.9 37.5 - 51.0 % 03/19/2025 11:32 PM EDT [facility] MCV 95.3 79.0 - 97.0 fL 03/19/2025 11:32 PM EDT [facility] MCH 31.5 26.6 - 33.0 pg 03/19/2025 11:32 PM EDT [facility] MCHC 33.0 31.5 - 35.7 g/dL 03/19/2025 11:32 PM EDT [facility] RDW 13.7 12.3 - 15.4 % 03/19/2025 11:32 PM EDT [facility] RDW-SD 47.1 37.0 - 54.0 fl 03/19/2025 11:32 PM EDT [facility] MPV 9.5 6.0 - 12.0 fL 03/19/2025 11:32 PM EDT [facility] Platelets 255 140 - 450 10*3/mm3 03/19/2025 11:32 PM [facility] Neutrophil % 53.8 42.7 - 76.0 % 03/19/2025 11:32 PM [facility] Lymphocyte % 24.1 19.6 - 45.3 % 03/19/2025 11:32 PM [facility] Monocyte % 9.0 5.0 - 12.0 % 03/19/2025 11:32 PM [facility] Eosinophil % 11.6(H) 0.3 - 6.2 % 03/19/2025 11:32 PM [facility] Basophil % 1.0 0.0 - 1.5 % 03/19/2025 11:32 PM [facility] Immature Grans % 0.5 0.0 - 0.5 % 03/19/2025 11:32 PM [facility] Neutrophils, Absolute 4.30 1.70 - 7.00 10*3/mm3 03/19/2025 11:32 PM [facility] Lymphocytes, Absolute 1.93 0.70 - 3.10 10*3/mm3 03/19/2025 11:32 PM [facility] Monocytes, Absolute 0.72 0.10 - 0.90 10*3/mm3 03/19/2025 11:32 PM [facility] Eosinophils, Absolute 0.93(H) 0.00 - 0.40 10*3/mm3 03/19/2025 11:32 PM [facility] Basophils, Absolute 0.08 0.00 - 0.20 10*3/mm3 03/19/2025 11:32 PM [facility] Immature Grans, Absolute 0.04 0.00 - 0.05 10*3/mm3 03/19/2025 11:32 PM [facility] nRBC 0.0 0.0 - 0.2 /100 WBC 03/19/2025 11:32 PM [facility] Blood Venipuncture / Unknown 03/19/2025 2:36 PM EDT 03/19/2025 2:36 PM EDT us Diane Kim MD LAB BLOOD ORDERABLES Final R esult [facility]
[address] [place] [address], [place] [phone] * Magnesium (03/19/2025 2:36 PM EDT) Pathologist [facility] Magnesium 2.1 1.6 - 2.4 mg/dL 03/20/2025 12:03 AM EDT [facility] Blood Venipuncture / Unknown 03/19/2025 2:36 PM EDT 03/19/2025 2:36 PM EDT us Diane Kim MD LAB BLOOD ORDERABLES Final R esult Performing Organization Address [facility] Co de Phone Number [facility]
[address] [place] [address], [place] [phone] * (ABNORMAL) Hemoglobin A1c (03/19/2025 2:36 PM EDT) Pathologist [facility] Hemoglobin A1C 8.90(H) 4.80 - 5.60 % 03/20/2025 12:07 AM EDT [facility] Blood Venipuncture / Unknown 03/19/2025 2:36 PM EDT 03/19/2025 2:36 PM EDT Narrative [facility] - 03/20/2025 12:07 AM EDT Hemoglobin A1C Ranges: Increased Risk for Diabetes 5.7% to 6.4% Diabetes >= 6.5% Diabetic Goal < 7.0% us Diane Kim MD LAB BLOOD ORDERABLES Final R esult Performing Organization Address City/[facility]/ZIP Co de Phone Number [facility]
[address] [place], [place] [address] [phone] * (ABNORMAL) Lipid Panel (03/19/2025 2:36 PM EDT) Total Cholesterol 145 0 - 200 mg/dL 03/20/2025 12:03 AM EDT [facility] Triglycerides 201(H) 0 - 150 mg/dL 03/20/2025 12:03 AM EDT [facility] HDL Cholesterol 25(L) 40 - 60 mg/dL 03/20/2025 12:03 AM EDT [facility] LDL Cholesterol 86 0 - 100 mg/dL 03/20/2025 12:03 AM EDT [facility] VLDL Cholesterol 34 5 - 40 mg/dL 03/20/2025 12:03 AM EDT [facility] LDL/HDL Ratio 3.19 03/20/2025 12:03 AM T [facility] Blood Venipuncture / Unknown 03/19/2025 2:36 PM EDT 03/19/2025 2:36 PM EDT Narrative [facility] - 03/20/2025 12:03 AM EDT Cholesterol Reference Ranges (U.S. Department of Health and Human Services ATP III Classifications) Desirable <200 mg/dL Borderline High 200-239 mg/dL High Risk >240 mg/dL Triglyceride Reference Ranges (U.S. Department of Health and Human Services ATP III Classifications) Normal <150 mg/dL Borderline High 150-199 mg/dL High 200-499 mg/dL Very High >500 mg/dL HDL Reference Ranges (U.S. Department of Health and Human Services ATP III Classifications) Low <40 mg/dl (major risk factor for CHD) High >60 mg/dl ('negative' risk factor for CHD) LDL Reference Ranges (U.S. Department of Health and Human Services ATP III Classifications) Optimal <100 mg/dL Near Optimal 100-129 mg/dL Borderline High 130-159 mg/dL High 160-189 mg/dL Very High >189 mg/dL LDL is calculated using the NIH LDL-C calculation. Diane Kim MD LAB BLOOD ORDERABLES Final R esult [facility]
[address] [place] [address], * (ABNORMAL) Comprehensive Metabolic Panel (03/19/2025 2:36 PM EDT) Glucose 152(H) 65 - 99 mg/dL 03/20/2025 12:03 AM EDT [facility] BUN 22.0 8.0 - 23.0 mg/dL 03/20/2025 12:03 AM EDT [facility] Creatinine 0.85 0.76 - 1.27 mg/dL 03/20/2025 12:03 AM T [facility] Sodium 138 136 - 145 mmol/L 03/20/2025 12:03 AM [facility] Potassium 4.7 3.5 - 5.2 mmol/L 03/20/2025 12:03 AM [facility] Chloride 100 98 - 107 mmol/L 03/20/2025 12:03 AM EDT [facility] CO2 25.0 22.0 - 29.0 mmol/L 03/20/2025 12:03 AM T [facility] Calcium 9.2 8.6 - 10.5 mg/dL 03/20/2025 12:03 AM T [facility] Total Protein 7.3 6.0 - 8.5 g/dL 03/20/2025 12:03 AM T [facility] Albumin 4.0 3.5 - 5.2 g/dL 03/20/2025 12:03 AM EDT [facility] ALT (SGPT) 14 1 - 41 U/L 03/20/2025 12:03 AM EDT [facility] AST (SGOT) 13 1 - 40 U/L 03/20/2025 12:03 AM T [facility] Alkaline Phosphatase 96 39 - 117 U/L 03/20/2025 12:03 AM T [facility] Total Bilirubin 0.5 0.0 - 1.2 mg/dL 03/20/2025 12:03 AM EDT [facility] Globulin 3.3 gm/dL 03/20/2025 12:03 AM EDT [facility] A/G Ratio 1.2 g/dL 03/20/2025 12:03 AM EDT [facility] BUN/Creatinine Ratio 25.9(H) 7.0 - 25.0 03/20/2025 12:03 AM EDT [facility] Anion Gap 13.0 5.0 - 15.0 mmol/L 03/20/2025 12:03 AM EDT [facility] eGFR 94.1 >60.0 mL/min/1.7 3 03/20/2025 12:03 AM EDT [facility] Blood Venipuncture / Unknown 03/19/2025 2:36 PM EDT 03/19/2025 2:36 PM EDT Narrative [facility] - 03/20/2025 12:03 AM EDT GFR Categories in Chronic Kidney Disease (CKD) GFR Category GFR (mL/min/1.73) Interpretation G1 90 or greater Normal or high (1) G2 60-89 Mild decrease (1) G3a 45-59 Mild to moderate decrease G3b 30-44 Moderate to severe decrease G4 15-29 Severe decrease G5 14 or less Kidney failure (1)In the absence of evidence of kidney disease, neither GFR category G1 or G2 fulfill the criteria for CKD. eGFR calculation 2020 CKD-EPI creatinine equation, which does not include race as a factor us Diane Kim MD LAB BLOOD ORDERABLES Final R esult [facility]
[address] [place] [address], from Last 3 Months Insurance [facility] MEDICARE ADVANTAGE PPO Care Teams Caustic Room Operator Relationship Specialty Start Date End Date Jem Narvaez MD [facility] [address] [address] PCP - General Internal Medicine 03/26/24
--- OUTSIDE RECORDS SUMMARY | 2025-06-19 15:30 | XMS_ITS | Encounter Summary ---
Author Organization [facility] Address [address] [place] [address] Care Team Providers Care Business Department Chair Name Role Phone Jem Narvaez MD Primary Care Provider [phone] Encounter Details Date Type Department Care Team (Latest Contact Info) Description 05/13/2025 Travel Social History Tobacco Use Types Packs/Day Years [...] [facility] [address] [place] [address] Diane Kim MD [address] [place] [address] 08/05/2025 2:30 PM EST Office Visit [facility] [address] [place] [address] Lissette Pike, PHOTONICS ENGINEER [address] [place] [address] documented as of this encounter Visit Diagnoses Not on filedocumented in this encounter Care Teams Business Department Chair Relationship Specialty Start Date End Date Jem Narvaez MD [address] [facility] [address] [place] [id number] PCP - General Internal Medicine 03/26/24 documented as of this encounter
== END 2025-06-19 23:59 | disposition home or self-care (01) ==
LOC: RAD 15:27
PROVIDERS: PCP Internal Medicine; Visit Provider Internal Medicine
DX: M17.12 Unilateral primary osteoarthritis, left knee (principal)
CPT/HCPCS: 73560